=== PATIENT | female | born 1965 | race Caucasian/White ===

== ENCOUNTER 2020-05-15 11:45 | Outpatient (CLI) | payer BC, SELFPAY ==
--- NOTE | ~2020-05-15 | MR_ITS ---
EXAMINATION: MR knee LT wo con DATE: 05/15/2020 12:39 INDICATION: Left knee injury and pain. TECHNIQUE: Magnetic resonance imaging (MRI) of the left knee was performed without intravenous contra st. Sequences included axial PD-weighted FS FSE, coronal PD-weighted FSE and PD-weighted FS FSE, sagi ttal PD-weighted FSE, and sagittal T2-weighted FS FSE. COMPARISON: None. FINDINGS: Medial compartment: There is a vertical tear of posterior root of medial meniscus. There is shallow partial-thickness car tilage loss of tibial condyle and femoral condyle. Lateral compartment: Lateral meniscus is normal. Lateral compartment cartilage is normal. Patellofemoral compartment: There is deep partial thickness cartilage loss of patellar medial facet and median ridge and shallow partial-thickness cartilage loss of patellar lateral facet. There is moderate subchondral edema-like marrow signal intensity in the patella. Trochlear cartilage is normal. Ligaments and tendons: The anterior and posterior cruciate ligaments are normal. Medial collateral ligament is normal. There are changes of prior sprain of fibular collateral ligament characterized by thickening and increased signal intensity proximally. There is mild patellar tendinopathy. Fluid: There is a small knee joint effusion. There is a small Templeton's cyst. There is mild prepatellar and pedro perficial infrapatellar bursitis. IMPRESSION: 1. Moderate chondrosis of patellofemoral compartment and mild chondrosis of medial compartment. 2. Tear of medial meniscus. 3. Small knee joint effusion. 4. Small Templeton's cyst. Reviewed, dictated and finalized at location A. IMPRESSION: 1. Moderate chondrosis of patellofemoral compartment and mild chondrosis of med ial compartment. 2. Tear of medial meniscus. 3. Small knee joint effusion. 4. Small Templeton's cyst.
== END 2020-05-15 11:46 | disposition home or self-care (01) ==
LOC: ANHIMG 11:48
PROVIDERS: PCP Physician Assistant; Visit Provider Internal Medicine
DX: M25.462 Effusion, left knee (principal); M71.22 Synovial cyst of popliteal space [Baker], left knee; S83.242A Other tear of medial meniscus, current injury, left knee, initial encounter; X58.XXXA Exposure to other specified factors, initial encounter
CPT/HCPCS: 73721

== ENCOUNTER 2020-05-17 09:40 | Outpatient (CLI) | payer BC, SELFPAY ==
--- NOTE | ~2020-05-17 | US_ITS ---
EXAMINATION: US thyroid DATE: 05/17/2020 10:16 INDICATION: Nontoxic goiter. Abnormal levels of serum enzymes. TECHNIQUE: Multiple ultrasound images of the thyroid were obtained. COMPARISON: 08/29/2016 FINDINGS: Enlarged thyroid with heterogeneous echogenicity, coarse in echotexture, lobular contours and diffuse ly increased vascular flow on color Doppler. The right thyroid lobe measures 6.0 x 2.5 x 3.1 cm. The left thyroid lobe measures 5.5 x 2.6 x 2.6 cm. The thyroid isthmus measures 12 mm in thickness. No di screte nodules identified. IMPRESSION: 1. Enlarged thyroid with diffusely coarsened echotexture, lobular margins and increased flow on color Doppler which can be seen with trace disease or other nonspecific thyroiditis. Reviewed, dictated and finalized at location A. IMPRESSION: 1. Enlarged thyroid with diffusely coarsened echotexture, lobular margins and i ncreased flow on color Doppler which can be seen with trace disease or other no nspecific thyroiditis.
--- NOTE | ~2020-05-17 | US_ITS ---
US right upper quadrant INDICATION: Increased liver function tests PROCEDURE: Realtime right upper abdominal ultrasound. COMPARISON: Ultrasound dated 08/12/2011 FINDINGS: The pancreas is normal without focal mass or pancreatic ductal dilation. There is hepatome prema with fatty infiltration. There is a 1.4 cm liver cyst. There is normal directional flow in the portal vein. Gallbladder surgically absent. Common bile duct measures 3.6 mm. No sonographic Pike's sign. IMPRESSION: 1: Hepatomegaly with fatty infiltration of the liver. 2: Status post cholecystectomy. Reviewed, dictated and finalized at location B.
== END 2020-05-17 09:41 | disposition home or self-care (01) ==
LOC: ANHIMG 09:45
PROVIDERS: PCP Physician Assistant; Visit Provider Internal Medicine Endocrinology, Diabetes & Metabolism
DX: E04.9 Nontoxic goiter, unspecified (principal); R74.8 Abnormal levels of other serum enzymes; Z90.49 Acquired absence of other specified parts of digestive tract
CPT/HCPCS: 76536; 76705

== ENCOUNTER 2020-08-27 08:33 | Outpatient (CLI) | payer BC, SELFPAY ==
--- NOTE | ~2020-08-27 | MM_ITS ---
EXAMINATION: MM screening eugene BI w rachael HISTORY: Screening mammogram TECHNIQUE: Craniocaudal and mediolateral oblique 3-D tomosynthesis images were obtained and synthetic 2-D images were generated. CAD analysis was submitted and interpreted. COMPARISON: 06/25/2019, 04/23/2018, 04/16/2017 bilateral digital screening mammogram examinations BREAST PARENCHYMAL COMPOSITION: There are scattered areas of fibroglandular density. FINDINGS: A biopsy marker is noted on each side; history of bilateral benign breast biopsies. There is a new approximately 5 mm opacity at mid depth in the inner aspect of the lower outer quadran t of the right breast (craniocaudal Tomosynthesis image ; MLO Tomosynthesis image ). Diagno stic right mammogram and right breast ultrasound examination are recommended. Otherwise there is no evidence of suspicious mass, calcification, or architectural distortion to sugg est malignancy in either breast. There has been no suspicious interval change. IMPRESSION: 1. New 5 mm mass in inner aspect of lower outer right breast 2. Diagnostic right mammogram and right breast ultrasound examination are recommended. BI-RADS Category 0: Incomplete: Needs additional imaging evaluation. Reviewed, dictated and finalized at location A. IMPRESSION: 1. New 5 mm mass in inner aspect of lower outer right breast 2. Diagnostic right mammogram and right breast ultrasound examination are recom mended. BI-RADS Category 0: Incomplete: Needs additional imaging evaluation.
== END 2020-08-27 08:34 | disposition home or self-care (01) ==
PROVIDERS: PCP Physician Assistant; Visit Provider Nurse Practitioner
DX: Z12.31 Encounter for screening mammogram for malignant neoplasm of breast (principal); R92.8 Other abnormal and inconclusive findings on diagnostic imaging of breast
CPT/HCPCS: 77063; 77067

== ENCOUNTER 2020-09-18 00:57 | Outpatient (CLI) | payer BC, SELFPAY ==
[2020-09-18 21:18] LABS: SARS-CoV-2 RNA PCR Negative
== END 2020-09-18 00:58 | disposition home or self-care (01) ==
LOC: ANHCOVIDDT 00:57
PROVIDERS: PCP Physician Assistant; Visit Provider Internal Medicine Gastroenterology
DX: Z01.812 Encounter for preprocedural laboratory examination (principal); Z20.828 Contact with and (suspected) exposure to other viral communicable diseases
CPT/HCPCS: 87635; C9803; U0003

== ENCOUNTER 2020-09-21 00:12 | Day surgery (SDC) | payer BC, SELFPAY ==
[2020-09-15 12:43] VITALS: BMI 39.1
--- NOTE | 2020-09-20 11:53 | WPDANESEPPF ---
Anes - Initial Pre Proc Eval Procedure: Operation Date: 09/21/20 09:30 Proposed Procedures p Screening Colonoscopy - Dipesh Reyna MD Date/Time: 09/20/20 11:53 Surgeon: Dipesh Reyna MD Pre Op Diagnosis: Neoplasm Screening, Personal Hx Of Colon Polyps Patient Data Age: 55 Gender: F Height: 1.7 m Weight: 113.4 kg Allergies Allergy/AdvReac Type Severity Reaction Status Date / Time codeine Allergy Unknown Unknown Verified 09/21/20 08:35 Penicillins Allergy Unknown Unknown Verified 09/21/20 08:35 Sulfa (Sulfonamide Allergy Unknown Unknown Verified 09/21/20 08:35 Antibiotics) sulfanilamide Allergy Unknown Unknown Verified 09/21/20 08:35 Home Medications Medication Instructions Recorded Confirmed Type amlodipine 5 mg PO DAILY 09/15/20 09/15/20 History carbidopa-levodopa 25 - 100 tablet PO QAM 09/15/20 09/15/20 History carbidopa-levodopa 50 - 200 tablet PO QPM 09/15/20 09/15/20 History cetirizine [All Day Allergy 10 mg PO DAILY 09/15/20 09/15/20 History (cetirizine)] cholecalciferol (vitamin D3) 200 mcg PO DAILY 09/15/20 09/15/20 History [Qwc-N-Hkgbdez Forte] hydrochlorothiazide 25 mg PO DAILY 09/15/20 09/15/20 History levothyroxine [Tirosint] 137 mcg PO DAILY 09/15/20 09/15/20 History rasagiline 1 mg PO DAILY 09/15/20 09/15/20 History rosuvastatin 20 mg PO DAILY 09/15/20 09/15/20 History sertraline 100 mg PO DAILY 09/15/20 09/15/20 History Patient hx anesthesia problems: none Family hx anesthesia problems: none PMFSH Past Medical History Medical History (Updated 09/21/20 @ 08:48 by Dipesh Reyna MD) Anxiety Depression Hypertension Hypothyroidism Migraine JHONY (obstructive sleep apnea) CPAP Parkinson disease Family History Family History (Updated 08/24/16 @ 10:11 by DOCTOR UNKNOWN) Grandparent Family history of lung cancer Family history of lymphoma Mother Patient's mother is in good health Other Depression Family history of alcoholism Family history of cardiovascular disease Family history of chronic obstructive pulmonary disease Family history of osteoporosis Family history of rheumatoid arthritis Family history of sleep apnea Hypertension Social History Social History Smoking status: Never smoker Second hand tobacco smoke exposure: No Alcohol intake: former Substance use: unknown Substance use type: unknown Living arrangements: with family Spiritual care concerns: No Anes - Eval Final PreProcedure Day of Procedure 09/20/20 11:53 Patient weight: obese Heart: regular rate and rhythm Lungs: clear to auscultation and normal air movement Airway: Mallampati scale class II Neurological: alert and oriented Last oral intake: >/= 8 hours ASA classification: III Emergent: no Anesthetic plan: proceed Anesthesia type and monitoring: general GIVS and standard monitoring Informed Consent: The patient's anesthetic plan and its attendant risks and benefits were discussed with the patient/family/POA. Questions were solicited and answers provided to the satisfaction of the patient/family/POA.
[2020-09-21 08:38] VITALS: BP 149/93; PULSE 66; RESP 20; TEMP 36.8; O2SAT 97
--- NOTE | 2020-09-21 08:46 | WPDGICN ---
Assessment and Plan Assessment and plan (1) Family history of colonic polyps: Code(s): Z83.71 - Family history of colonic polyps Status: Acute Assessment and Plan: Patient has a family history of colon polyps in her father. As well as having had colon polyps on previous colonoscopy herself. Plan is for surveillance colonoscopy now. Typically this is recommended at 5 year intervals in the future. (2) History of colon polyps: Code(s): Z86.010 - Personal history of colonic polyps Status: Acute GI Consult Note Consult date/time: 09/21/20 08:46 HPI: Jaimie Mosley is a 55 year old female Seen in evaluation at the request of Dr Simin Gunter. patient presents for surveillance colonoscopy. Patient has a history of colon polyps in the past. Family history is significant that her father has had colon polyps. Patient states that her own bowel habits are normal. She denies abdominal pain. She has had no bleeding. Last colonoscopy was approximately 6 years ago. Review of Systems Review of Systems: All systems reviewed & are unremarkable except as noted in HPI and below PMFSH Past Medical History Medical History (Updated 09/21/20 @ 08:48 by Dipesh Reyna MD) Anxiety Depression Hypertension Hypothyroidism Migraine JHONY (obstructive sleep apnea) CPAP Parkinson disease Family History Family History (Updated 08/24/16 @ 10:11 by DOCTOR UNKNOWN) Grandparent Family history of lung cancer Family history of lymphoma Mother Patient's mother is in good health Other Depression Family history of alcoholism Family history of cardiovascular disease Family history of chronic obstructive pulmonary disease Family history of osteoporosis Family history of rheumatoid arthritis Family history of sleep apnea Hypertension Social History Social History Smoking status: Never smoker Second hand tobacco smoke exposure: No Alcohol intake: former Substance use: unknown Substance use type: unknown Living arrangements: with family Spiritual care concerns: No Meds Home Medications and Allergies Home Medications Medication Instructions Recorded Confirmed Type amlodipine 5 mg PO DAILY 09/15/20 09/15/20 History carbidopa-levodopa 25 - 100 tablet PO QAM 09/15/20 09/15/20 History carbidopa-levodopa 50 - 200 tablet PO QPM 09/15/20 09/15/20 History cetirizine [All Day Allergy 10 mg PO DAILY 09/15/20 09/15/20 History (cetirizine)] cholecalciferol (vitamin D3) 200 mcg PO DAILY 09/15/20 09/15/20 History [Yux-G-Kiabrem Forte] hydrochlorothiazide 25 mg PO DAILY 09/15/20 09/15/20 History levothyroxine [Tirosint] 137 mcg PO DAILY 09/15/20 09/15/20 History rasagiline 1 mg PO DAILY 09/15/20 09/15/20 History rosuvastatin 20 mg PO DAILY 09/15/20 09/15/20 History sertraline 100 mg PO DAILY 09/15/20 09/15/20 History Allergies Allergy/AdvReac Type Severity Reaction Status Date / Time codeine Allergy Unknown Unknown Verified 09/21/20 08:35 Penicillins Allergy Unknown Unknown Verified 09/21/20 08:35 Sulfa (Sulfonamide Allergy Unknown Unknown Verified 09/21/20 08:35 Antibiotics) sulfanilamide Allergy Unknown Unknown Verified 09/21/20 08:35 Vital Signs Vital Signs - 24 hr 09/21/20 08:38 Temperature 98.3 F Pulse Rate 66 Respiratory Rate 20 Blood Pressure 149/93 H Pulse Oximetry 97 Exam Narrative: Exam Narrative: Physical exam reveals patient to be a alert. vital signs stable. HEENT exam unremarkable. Lungs are clear to auscultation and percussion. Heart is without murmur or extra sounds. Abdominal exam bowel sounds are present soft nontender with no organomegaly. Digital external rectal exam is normal.
[2020-09-21] MEDS: LACTATED RINGERS 1,000 ML 150 ML IV CONT (08:52)
[2020-09-21 09:52] VITALS: BP 129/67; PULSE 59; RESP 17; O2SAT 97
[2020-09-21 10:02] VITALS: BP 130/68; PULSE 59; RESP 20; O2SAT 100
[2020-09-21 10:12] VITALS: BP 147/77; PULSE 61; RESP 20; O2SAT 98
== END 2020-09-21 10:32 | disposition home or self-care (01) ==
PROVIDERS: PCP Physician Assistant; Visit Provider Internal Medicine Gastroenterology
PROC: 0DJD8ZZ Inspection of Lower Intestinal Tract, Via Natural or Artificial Opening Endoscopic (ICD-10-PCS; CPT 45378; principal; 2020-09-21 09:30)
DX: Z12.11 Encounter for screening for malignant neoplasm of colon (principal); D12.2 Benign neoplasm of ascending colon; D12.5 Benign neoplasm of sigmoid colon; K63.5 Polyp of colon; K64.8 Other hemorrhoids; Z83.71 Family history of colonic polyps; I10 Essential (primary) hypertension; E03.9 Hypothyroidism, unspecified; G47.33 Obstructive sleep apnea (adult) (pediatric); G20 Parkinson's disease; F41.8 Other specified anxiety disorders
CPT/HCPCS: 45385; 88305; J2704; J7120

== ENCOUNTER 2020-09-23 11:18 | Outpatient (CLI) | payer BC, SELFPAY ==
--- NOTE | ~2020-09-23 | MMUS_ITS ---
EXAMINATION: MM diagnostic mammo unilat RT, US breast RT limited HISTORY: Right breast mass on screening mammogram and patient now reports palpable lump of the upper outer breast. TECHNIQUE: Additional 3-D tomosynthesis images of the right breast were performed and synthetic 2-D i mages were generated. CAD analysis was submitted and interpreted. High resolution limited right breas t ultrasound was performed. COMPARISON: 08/27/2020 06/25/2019, 04/23/2018 FINDINGS: MAMMOGRAPHIC FINDINGS: There is a 5 mm oval, obscured, equal density mass in the middle third of the lower breast at the 6:0 0 location 6 cm from the nipple. No mammographic correlate is identified for the reported palpable ab normality of concern in the upper-outer quadrant breast. ULTRASOUND: There is an 18 mm x 9 mm oval, circumscribed, parallel, isoechoic mass in the upper outer quadrant of the breast corresponding to the palpable abnormality of concern which has sonographic features consi stent with a lipoma. There is a 3 mm oval, circumscribed, hypoechoic mass at the 6:00 location 6 cm f rom the nipple without suspicious posterior features or internal vascularity. There is a 12 mm x 7 mm oval, circumscribed, hyperechoic mass with no posterior features or internal vascularity at the 6:00 location 3 cm from the nipple. IMPRESSION: 1. Probably benign breast mass at the 6:00 location 3 cm from the nipple, findings suggestive of a sm all breast hematoma at the 6:00 location 3 cm from the nipple, and a lipoma at the area of palpable c oncern. 2. Recommend 6 month follow-up right diagnostic mammogram and ultrasound. BI-RADS category 3, probably benign findings. Reviewed, dictated and finalized at location A. T OF APPEALS JUDGE IMPRESSION: 1. Probably benign breast mass at the 6:00 location 3 cm from the nipple, findi ngs suggestive of a small breast hematoma at the 6:00 location 3 cm from the ni pple, and a lipoma at the area of palpable concern. 2. Recommend 6 month follow-up right diagnostic mammogram and ultrasound. BI-RADS category 3, probably benign findings.
== END 2020-09-23 11:19 | disposition home or self-care (01) ==
LOC: ANHIMG 11:19
PROVIDERS: PCP Physician Assistant; Visit Provider Obstetrics & Gynecology Gynecology
DX: R92.8 Other abnormal and inconclusive findings on diagnostic imaging of breast (principal)
CPT/HCPCS: 76642; 77065

== ENCOUNTER 2020-09-27 12:53 | Outpatient (CLI) | payer BC, SELFPAY ==
--- NOTE | ~2020-09-27 | DEXA_ITS ---
Bone Density Report Name: Jaimie Mosley Age: 55 Sex: Female Ethnicity: White Date of : 1965 Indication: postmenopausal; height loss; Referring Provider: Rich, Radha Study: Bone densitometry was performed. Exam Date: September 27, 2020 Accession number: [id number] Bone Density: Region BMD T-score Z-score Classification AP Spine (L1-L4) 0.981 -0.6 0.6 Normal Femoral Neck (Left) 0.749 -0.9 0.3 Normal Total Hip (Left) 1.107 1.3 2.2 Normal Total Hip Bilateral Avg 1.077 1.1 2.0 Normal Femoral Neck (Right) 0.769 -0.7 0.5 Normal Total Hip (Right) 1.045 0.8 1.7 Normal World Health Organization criteria for BMD impression classify patients as: Normal (T-score at or above -1.0), Osteopenia (T-score between -1.0 and -2.5), or Osteoporosis (T-score at or below -2.5). 10-year Fracture Risk: FRAX not reported because: All T-scores for Spine Total, Hip Total, Femoral Neck at or above -1.0 Previous Exams: Region Exam Age BMD T-score BMD Change BMD Change Date g/cm2 vs Baseline vs Previous Total Hip(Left) 09/27/2020 55 1.107 1.3 0.002(0.1%) 0.002(0.1%) 08/29/2016 51 1.105 1.3 Total Hip(Right) 09/27/2020 55 1.045 0.8 0.031(3.0%)* 0.031(3.0%)* 08/29/2016 51 1.014 0.6 *Denotes significance at 95% confidence level, LSC for Total Hip = 0.027 g/cm2 Clinical Information Provided by Patient: Has used the following medications: Vitamin D, Calcium Patient maximum height was 68 Menopause Age: 50 Drinks caffeinated beverages Onset of menses at age 11 Number of children 2 Impression: The patient has normal bone mass. No significant bone loss was observed. Discussion: BONE DENSITY IS ABOVE THE MINIMUM DESIRABLE LEVEL AT ALL SKELETAL SITES TESTED. This patient?s bone mineral density is above the minimum desirable level (T-score -1.0 or better) at all sites measured. The patient should follow a healthful lifestyle (good nutrition with adequate calcium and vitamin D, and appropriate weight-bearing exercise). Follow-Up: Consider repeating this study in 5 years or sooner if there is some new clinical indication. Reported by: MARIIA on 09/27/2020 1:14:00 PM. Reviewed, dictated and finalized at [facility]iel [place]
== END 2020-09-27 12:54 | disposition home or self-care (01) ==
LOC: ANHIMG 12:55
PROVIDERS: PCP Physician Assistant; Visit Provider Physician Assistant
DX: Z78.0 Asymptomatic menopausal state (principal)
CPT/HCPCS: 77080

== ENCOUNTER 2020-12-03 16:38 | Outpatient (CLI) | payer BC, SELFPAY ==
--- NOTE | ~2020-12-03 | MR_ITS ---
EXAMINATION: MR knee LT wo con DATE: 12/03/2020 17:28 INDICATION: Acute onset left knee pain TECHNIQUE: Magnetic resonance imaging (MRI) of the left knee was performed without intravenous contra st. Sequences included coronal PD-weighted FSE, coronal PD-weighted FS FSE, sagittal T2-weighted FSE , sagittal PD-weighted FS FSE and axial PD weighted fat saturated FSE. COMPARISON: 05/15/2020 FINDINGS: Medial compartment: There is a tiny focus of susceptibility artifact along the anterior horn of the lateral side of the p osterior horn of the medial meniscus at the end of a linear tract extending from anterior to posterio r across the medial tibial plateau tensely and anchor sites for meniscal repair. There is medial extr usion of the meniscal body with a longitudinal horizontal tear extending to near the free edge of the body. Interval development of partial thickness chondral ulceration with prominent underlying subart icular edema at the anterior weightbearing medial femoral condyle. Unchanged mild partial thickness c artilage loss with smooth chondral surface and without degenerative subchondral changes along the ant erior aspect of the medial tibial plateau. Lateral compartment: Lateral meniscus is normal. Articular cartilage is normal. Patellofemoral compartment: Interval progression of partial-thickness cartilage loss along the lateral patellar facet. Again seen are focal regions of more severe full/near full-thickness chondral ulceration and fissuring with und erlying cortical irregularity and subcortical edema at the superolateral aspect. Lateral patellar fac et and at the cephalad aspect of the patellar apical ridge. Trochlear cartilage remains relatively pr eserved. Ligaments and tendons: Anterior and posterior cruciate ligaments are normal. Medial collateral ligament is normal. Again see n is mild thickening of the proximal medial collateral ligament without surrounding edema consistent with scarring related to chronic sprain. The extensor mechanism is normal. The visualized medial and lateral hamstring tendons as well as the iliotibial band are normal. Fluid/other: Physiologic amount of fluid in the joint space. No loose osteochondral bodies identified. Very small Templeton's cyst. Osseous/other: Bone alignment is normal. No fracture or pathologic marrow replacing process. There is some scarring at the medial and lateral aspects of Hoffa's fat pad consistent with interval arthroscopy. IMPRESSION: 1. Postoperative change of interval arthroscopy and likely medial meniscal repair with suture anchor near the posterior root of the medial meniscus. Residual medial extrusion and longitudinal horizontal tear at the body of the medial meniscus. 2. 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 Reviewed, dictated and finalized at location A. ECT CONSTRUCTION MANAGER IMPRESSION: 1. Postoperative change of interval arthroscopy and likely medial meniscal repa ir with suture anchor near the posterior root of the medial meniscus. Residual medial extrusion and longitudinal horizontal tear at the body of the medial men iscus. 2. 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
== END 2020-12-03 16:39 | disposition home or self-care (01) ==
PROVIDERS: Family Provider Family Medicine; PCP Physician Assistant
DX: M25.562 Pain in left knee (principal); S83.242A Other tear of medial meniscus, current injury, left knee, initial encounter; M94.262 Chondromalacia, left knee; M17.12 Unilateral primary osteoarthritis, left knee; Z98.890 Other specified postprocedural states
CPT/HCPCS: 73721

== ENCOUNTER 2021-03-21 11:24 | Outpatient (CLI) | payer BC, SELFPAY ==
--- NOTE | ~2021-03-21 | MMUS_ITS ---
EXAMINATION: MM diagnostic eugene RT w rachael, US breast RT limited HISTORY: Palpable right breast abnormality TECHNIQUE: Additional 3-D tomosynthesis images of the right breast were performed and synthetic 2-D i mages were generated. CAD analysis was submitted and interpreted. High resolution Limited right breas t ultrasound was performed. COMPARISON: Comparison to multiple prior studies sequentially, with oldest reviewed study dated 08/06. BREAST PARENCHYMAL COMPOSITION: Breast composed of scattered areas of fibroglandular density. FINDINGS: MAMMOGRAPHIC FINDINGS: No suspicious masses, calcifications or architectural distortion in the right breast to suggest malig viri. ULTRASOUND: Limited right breast ultrasound: At 8:00, 8 cm from the nipple, there is a 5 mm cyst. No suspicious m asses to suggest malignancy. IMPRESSION: 1. No evidence for malignancy in the right breast. 2. Routine yearly screening mammogram and regular clinical breast examination are recommended. BI-RADS Category 2: Benign finding(s). Reviewed, dictated and finalized at location A. IMPRESSION: 1. No evidence for malignancy in the right breast. 2. Routine yearly screening mammogram and regular clinical breast examination a re recommended. BI-RADS Category 2: Benign finding(s).
== END 2021-03-21 11:25 | disposition home or self-care (01) ==
PROVIDERS: PCP Physician Assistant; Visit Provider Obstetrics & Gynecology Gynecology
DX: R92.8 Other abnormal and inconclusive findings on diagnostic imaging of breast (principal)
CPT/HCPCS: 76642; 77061; 77065; G0279

== ENCOUNTER 2021-03-23 07:56 | Outpatient (CLI) | payer BC, SELFPAY ==
--- NOTE | ~2021-03-23 | US_ITS ---
EXAMINATION: US abdomen limited EXAM DATE: 03/23/2021 08:29 INDICATION: Liver cyst. TECHNIQUE: Multiple grayscale and Doppler images of the abdomen right upper quadrant were obtained (binu y a technologist who performed the scan) and subsequently reviewed. Comparison is made to prior exami nation from 05/17/2020. FINDINGS: The pancreatic head and body are normal in appearance. The pancreatic tail is not visualized. There is echogenic liver parenchyma with poor penetration, hepatic steatosis. There is a 1.6 cm liver cys t. There is no evidence of intrahepatic biliary duct dilation. Portal venous flow was seen in the h epatopedal, normal direction and has normal Doppler waveform. No right-sided hydronephrosis. Common bile duct measures 5 mm, which is normal. The gallbladder fossa is unremarkable. There is n o significant interval change. IMPRESSION: 1. Hepatic steatosis. 2. Liver cyst. Reviewed, dictated and finalized at location A.
--- NOTE | ~2021-03-23 | XR_ITS ---
EXAMINATION: XR barium swallow modified EXAM DATE: 03/23/2021 09:42 INDICATION: Dysphagia. Parkinson's. TECHNIQUE: Modified barium esophagram was performed by speech pathologist with radiologist Dr. Jaron Bryan present to administered fluoroscopy. Speech pathologist administered barium in varying consis tencies as per speech pathologist documentation. This was recorded on tape. There was total fluorosc opic time of 1.1 minutes. The DAP for this procedure was 0.9 Gycm2. A total of 4 images sent to PAC S from the exam. FINDINGS: Oral stage: Adequate function. Pharyngeal phase: Reduced laryngeal elevation. Laryngeal penetration: Trace, thin liquids. Aspiration: Trace. Laryngeal sensitivity: Present. IMPRESSION: Oral feedings recommended as per speech pathologist. Please refer to speech pathologist findings and specific feeding recommendations. Reviewed, dictated and finalized at location A.
--- NOTE | 2021-03-24 11:44 | STOPEVAL ---
MODIFIED BARIUM SWALLOW EVALUATION (03-23-21) Thank you for referring Jaimie Carmen Mosley to [facility].? Outpatient Past Medical History Past Medical History Source of Past Medical History Patient Neurological History Hx Migraine Yes Hx Parkinson's Disease Yes: since 2016 Cardiovascular History Hx Hypertension Yes Respiratory History Hx Sleep Apnea Yes: CPAP Gastrointestinal History Hx Gall Bladder Disease Yes Hx Polyps Yes Genitourinary History Hx Genitourinary Disorders No Significant History Musculoskeletal History Hx Orthopedic Surgery Yes: LEFT KNEE MENISCUS -2019 Hematological History Hx Hematological Disorders No Significant History Endocrine History Hx Hypothyroidism Yes: JINNY Hx Other Endocrine Disorders Yes: GOITER HEENT History Hx Tonsillectomy Yes Hx Other HEENT Disorders Yes: SINUS SURGERY Integumentary History Hx Skin Disorders No Significant History Reproductive History Hx Post Menopausal Yes Psychosocial History Hx Anxiety Yes Hx Depression Yes Pain History Has Past Pain Affected Your Daily Life Yes: DUE TO LEFT KNEE -FIXED Anesthesia History Hx Anesthesia Reactions No Significant History Pain Assessment Timing of Pain Assessment Timing of Pain Assessment Assessment Self Report Self Report Pain Level 0 Pain Score Pain Score 0: Self Report Modified Barium Swallow Evaluation Recent Swallowing History Reports Dysphagia Yes: choking on water; Onset of Dysphagia as long as I can remember but worse recently History of Related Medical Diagnosis Parkinson's Disease Other Factors Impacting Dysphagia Neurological Impairment History of Pneumonia No Reported Difficult Consistencies Thin Liquids Intake Method Prior to Swallow Oral Evaluation Diet Prior to Swallow Evaluation Regular, Level 7 Liquid Consistency Prior to Swallow Thin (0) Evaluation Consistency Thin Uncontrolled 2 Other Amount straw with tight chin tuck Oral Preparatory Symptoms Within Functional Limits Oral Phase Symptoms Within Functional Limits Pharyngeal Phase Symptoms Within Functional Limits, Laryngeal Penetration Severity of Vallecular Residue None - 0% No Residue Severity of Pyriform Sinus Residue None - 0% No Residue 8 Point Laryngeal Penetration-Aspiration Material Enters the Airway, Scale Remains Above Vocal Folds, is Ejected Cervical/Esophageal Symptoms Within Functional Limits Thin Uncontrolled 1 Other Amount cup with chin tuck Oral Preparatory Symptoms
== END 2021-03-23 07:57 | disposition home or self-care (01) ==
LOC: ANHIMG 07:57
PROVIDERS: PCP Physician Assistant; Visit Provider Internal Medicine Endocrinology, Diabetes & Metabolism
DX: K76.89 Other specified diseases of liver (principal); K76.0 Fatty (change of) liver, not elsewhere classified
CPT/HCPCS: 76705; 92611

== ENCOUNTER 2021-04-06 09:16 | Outpatient (RCR) | payer BC, SELFPAY ==
--- NOTE | 2021-04-06 10:32 | STOPEVAL ---
SPEECH THERAPY INITIAL EVALUATION: Thank you for referring Jaimie Mosley to [facility].? The patient is scheduled to be seen for therapy? 1x/week for 4 weeks. Please review, sign, date and return this plan of care FRANCISCO. I agree with and certify that the following plan of care is medically necessary. Referring Physician Date Attending Provider: Shahla SmithMD Other Providers: Debra Villanueva & [facility]RAXTON[facility] Neurology attn: aBltazar Mendoza MD Outpatient Past Medical History Past Medical History Source of Past Medical History Patient Neurological History Hx Migraine Yes: up until menopause Hx Parkinson's Disease Yes: since 2016 Cardiovascular History Hx Hypertension Yes: on meds Respiratory History Hx Sleep Apnea Yes: CPAP Gastrointestinal History Hx Cholecystectomy Yes Hx Gall Bladder Disease Yes Hx Polyps Yes Genitourinary History Hx Genitourinary Disorders No Significant History Musculoskeletal History Hx Orthopedic Surgery Yes: LEFT KNEE MENISCUS -2019 surgery x2 Hematological History Hx Hematological Disorders No Significant History Endocrine History Hx Hypothyroidism Yes: JINNY HEENT History Hx Tonsillectomy Yes Hx Other HEENT Disorders Yes: SINUS SURGERY Integumentary History Hx Skin Disorders No Significant History Reproductive History Hx Post Menopausal Yes Psychosocial History Hx Anxiety Yes Hx Depression Yes Pain History Has Past Pain Affected Your Daily Life Yes: DUE TO LEFT KNEE -FIXED Anesthesia History Hx Anesthesia Reactions No Significant History Prior Level of Function Prior Swallow Level Prior Intake Method Oral Prior Diet Regular (Level 7 Diet) Prior Liquid Consistency Thin (Level 0 Diet) Prior Cognition/Communication Prior Communication Level No Impairment Prior Cognitive Function Able to Function Independently Comments Additional Prior Level of Function jaw tremor was the first Comments symptom of Parkinson disease. Bedside Swallow Evaluation General Reports Dysphagia Yes Duration of Dysphagia as long as I can remember History of Related Medical Diagnosis Parkinson's Disease History of Feeding Problems Previous Swallow Evaluation Reported Difficult Consistencies Thin Liquids Meal Observed Bedside Swallows History of Dysphagia No History of Pneumonia No Intake Method Prior to Swallow Oral Evaluation Diet Prior to Swallow Evaluation Regular, Level 7 Liquid Consistency Prior to Swallow Thin (0) Evaluation Cognition During Swallowing Alert,Attentive Consistency
--- NOTE | 2021-05-04 14:53 | PCSTNOTE ---
SPEECH THERAPY DISCHARGE: Attending Provider: Shahla Smith, Patient:Jamiie Mosley Date of :1965 The above pt was seen in outpatient speech therapy following a recent modified barium swallow (MBS) which revealed: oral stages: within functional limits; during the pharyngeal stage, the following was exhibited: reduced laryngeal elevation as evidenced by laryngeal penetration during the swallow; reduced laryngeal closure as evidenced by aspiration during the swallow (with thin liquids only). The aspiration was considered mild and with the use of the chin tuck/neck flexion posture, was able to be eliminated. After the MBS, the pt was educated re the results of the evaluation as well as the recommendations (for OP speech therapy) and swallowing guidelines. Upon outpatient ST evaluation on 04/06/21, the results and recommendations of the previous modified barium swallow were reviewed. She was tested with thin liquids and mixed consistency using the chin tuck posture. Intermittent throat clearing was exhibited;however, with instruction to tuck chin slightly tighter, no further throat clearing occurred. The pt was instructed on risks of aspiration, HEP and swallowing guidelines. Pt was provided with written list of dysphagia exercises. Pt verbalized and demonstrated understanding. She was instructed to return x1/week x 4 weeks to provide any further teaching and direction for the HEP. At this time, the patient has not returned for any further treatments; therefore she will be discharged at this time. Thank you for referring this patient to [facility]. Please review, sign, date and return this discharge summary FRANCISCO. I have been updated about the patient's current status and I agree with discharge from the above service at this time. Referring Physician Date
== END 2021-05-05 17:08 | disposition home or self-care (01) ==
LOC: ANHST 09:16
PROVIDERS: PCP Physician Assistant; Visit Provider Internal Medicine Endocrinology, Diabetes & Metabolism
DX: R13.10 Dysphagia, unspecified (principal)
CPT/HCPCS: 92610

== ENCOUNTER 2021-12-14 11:06 | Outpatient (CLI) | payer BC, SELFPAY ==
--- NOTE | 2021-12-14 | ECG_ITS ---
Measurements Intervals [place] Rate: 64 P: 39 CO: 165 QRS: -1 QRSD: 94 T: 11 QT: 409 QTc: 425 Interpretive Statements SINUS RHYTHM LOW QRS VOLTAGE IN PRECORDIAL LEADS CONSIDER INFERIOR INFARCT, AGE INDETERMINATE BASELINE ARTIFACT- II, III, AVF ABNORMAL ECG Electronically Signed On 12-14-2021 11:47:01 FILLING STATION LABORER by Henry Echavarria D.O.
== END 2021-12-14 11:07 | disposition home or self-care (01) ==
LOC: ANHCARD 11:11
PROVIDERS: PCP Physician Assistant; Referring Provider Specialist; Visit Provider Physician Assistant
DX: Z01.818 Encounter for other preprocedural examination (principal); R94.31 Abnormal electrocardiogram [ECG] [EKG]
CPT/HCPCS: 93005

== ENCOUNTER → 2021-12-28 02:13 | Outpatient (CLI) | payer BC, SELFPAY ==
[2021-12-28 12:38] LABS: SARS-CoV-2 RNA PCR Negative
== END ==
PROVIDERS: PCP Physician Assistant; Visit Provider Physician Assistant
DX: Z01.812 Encounter for preprocedural laboratory examination (principal); Z20.822 Contact with and (suspected) exposure to COVID-19
CPT/HCPCS: C9803; U0003; U0005

== ENCOUNTER 2022-03-31 07:31 | Outpatient (CLI) | payer BC, SELFPAY ==
--- NOTE | ~2022-03-31 | US_ITS ---
EXAMINATION: US abdomen limited DATE: 03/31/2022 08:47 INDICATION: Liver cyst. Other specified diseases of liver. TECHNIQUE: Multiple grayscale and Doppler ultrasound images of the abdomen were obtained. COMPARISON: Ultrasound 03/23/2021 FINDINGS: The visualized portions of the head, body, and tail of the pancreas are normal. There is di ffuse hepatic steatosis. There is a 1.5 cm cyst in the liver, likely not clinically significant. No l iver surface nodularity. The gallbladder is absent. The common duct is normal and measures 6 mm. Ther e is normal flow in main portal vein. IMPRESSION: 1. Diffuse hepatic steatosis. Reviewed, dictated and finalized at location A.
== END 2022-03-31 07:32 | disposition home or self-care (01) ==
LOC: ANHIMG 07:35
PROVIDERS: PCP Physician Assistant; Visit Provider Internal Medicine Endocrinology, Diabetes & Metabolism
DX: K76.89 Other specified diseases of liver (principal); K76.0 Fatty (change of) liver, not elsewhere classified
CPT/HCPCS: 76705

== ENCOUNTER 2022-05-29 14:26 | Outpatient (CLI) | payer BC, SELFPAY | END 2022-05-29 14:27 | disposition home or self-care (01) | PROVIDERS: PCP Physician Assistant; Visit Provider Physician Assistant | DX: H90.3 Sensorineural hearing loss, bilateral (principal) | CPT/HCPCS: 92557; 92567 ==

== ENCOUNTER 2022-06-21 13:00 | Outpatient (RCR) | payer BC, SELFPAY | END 2022-09-05 23:59 | disposition home or self-care (01) | LOC: ANHAUDASC 13:00 | PROVIDERS: PCP Physician Assistant; Visit Provider Physician Assistant | DX: Z46.1 Encounter for fitting and adjustment of hearing aid (principal) | CPT/HCPCS: 99199; V5261 ==

== ENCOUNTER 2022-07-20 11:28 | Outpatient (CLI) | payer BC, SELFPAY ==
--- NOTE | ~2022-07-20 | XR_ITS ---
EXAMINATION: XR chest 2V DATE: 07/20/2022 11:47 INDICATION: Cough. TECHNIQUE: Frontal and lateral views of the chest were obtained. COMPARISON: Chest 2 views 07/30/2013 FINDINGS: The chest demonstrates clear lungs without pneumonia, pleural effusion, or pneumothorax. Th e heart size is normal. IMPRESSION: 1. No acute cardiopulmonary disease. Reviewed, dictated and finalized at location A.
== END 2022-07-20 11:29 | disposition home or self-care (01) ==
PROVIDERS: PCP Physician Assistant; Visit Provider Physician Assistant
DX: R05.9 Cough, unspecified (principal)
CPT/HCPCS: 71046

== ENCOUNTER 2022-08-04 12:29 | Outpatient (CLI) | payer BC, SELFPAY ==
--- NOTE | 2022-08-04 | ECHO_ITS ---
Patient Info Name: Jaimie Mosley Age: 57 years : 1965 Gender: Female Ht: 67 in Wt: 260 lbs BSA: 2.42 m2 HR: 63 bpm BP: 245 / 80 mmHg Technical Quality: Fair Exam Date: 08/04/2022 1:07 PM Exam Location: [facility] Patient Status: Outpatient Admit Date: 08/04/2022 Staff Ordering Physician: RichDebra PA-C Or First Assist Registered Nurse: Casandra Santos RDCS Attending Provider: MeganDebra PA-C Exam Type: CA echo doppler color flow Study Info Indications R01.1 - Cardiac murmur, unspecified Complete two-dimensional, color flow and Doppler transthoracic echocardiogram is performed. Summary 1. Complete two-dimensional, color flow and Doppler transthoracic echocardiogram is performed. 2. Left ventricular chamber dimension is normal. 3. Left ventricular systolic function is normal, estimated at 65-70%. 4. There is mildly increased left ventricular wall thickness. 5. The left ventricular diastolic function is grade I diastolic dysfunction. 6. E/e' 9 is minimally elevated. 7. Global longitudinal strain is abnormal at -15.1%. 8. Mild pulmonary hypertension, estimated pulmonary arterial systolic pressure is 40 mmHg. 9. Dilated inferior vena cava with >50% collapse upon inspiration consistent with elevated right atrial pressure, 10 mmHg. Left Ventricle E/e' 9 is minimally elevated. Global longitudinal strain is abnormal at -15.1%. Left ventricular chamber dimension is normal. Left ventricular systolic function is normal, estimated at 65-70%. There is mildly increased left ventricular wall thickness. The left ventricular diastolic function is grade I diastolic dysfunction. Right Ventricle Right ventricular systolic function is normal and with normal TAPSE 2.4 cm. Right ventricular chamber dimension is normal. Left Atria Left atrial chamber dimension is normal. Right Atria Right atrial chamber dimension is normal. Aortic Valve The aortic valve is trileaflet. There is no aortic valve stenosis. There is no aortic valve regurgitation. Pulmonic Valve There is no pulmonic regurgitation. Mitral Valve There is no mitral valve stenosis. There is no mitral valve regurgitation. Tricuspid Valve There is no tricuspid valve regurgitation. Mild pulmonary hypertension, estimated pulmonary arterial systolic pressure is 40 mmHg. Pericardium/Pleural There is no pericardial effusion. Inferior Vena Cava Dilated inferior vena cava with >50% collapse upon inspiration consistent with elevated right atrial pressure, 10 mmHg. Aorta The aortic root size at the sinus of Valsalva is normal. Left Ventricular Outflow Tract Name Value Normal LVOT 2D LVOT Diameter 2.0 cm LVOT Doppler LVOT Peak Gradient 8 mmHg LVOT Mean Gradient 4 mmHg LVOT VTI 31 cm LVOT VTI/AV VTI Ratio 0.9 LVOT Stroke Volume 97 ml LVOT CO 6.0 l/min LVOT CI 2.5 l/min/m2 Pulmonic Valve
== END 2022-08-04 12:30 | disposition home or self-care (01) ==
LOC: ANHCARD 12:30
PROVIDERS: PCP Physician Assistant; Visit Provider Physician Assistant
DX: R01.1 Cardiac murmur, unspecified (principal); I08.3 Combined rheumatic disorders of mitral, aortic and tricuspid valves
CPT/HCPCS: 93306

== ENCOUNTER 2022-08-17 16:00 | Outpatient (CLI) | payer BC, SELFPAY ==
--- NOTE | ~2022-08-17 | MM_ITS ---
EXAMINATION: MM screening [facility] w rachael HISTORY: Screening TECHNIQUE: Craniocaudal and mediolateral oblique 3-D tomosynthesis images were obtained and synthetic 2-D images were generated. CAD analysis was submitted and interpreted. COMPARISON: Comparison to multiple prior studies sequentially, with oldest reviewed study dated 04/16. BREAST PARENCHYMAL COMPOSITION: Breast composed of scattered areas of fibroglandular density FINDINGS: There is no evidence of suspicious mass, calcification, or architectural distortion to sugg est malignancy in either breast. There has been no suspicious interval change. IMPRESSION: 1. No mammographic evidence of malignancy. 2. Recommend routine screening mammography in one year. BI-RADS Category 1: Negative Reviewed, dictated and finalized at location A.
== END 2022-08-17 16:01 | disposition home or self-care (01) ==
LOC: ANHIMG 16:02
PROVIDERS: PCP Physician Assistant; Visit Provider Nurse Practitioner
DX: Z12.31 Encounter for screening mammogram for malignant neoplasm of breast (principal)
CPT/HCPCS: 77063; 77067

== ENCOUNTER 2023-11-06 09:50 | Outpatient (CLI) | payer BC, SELFPAY ==
--- NOTE | ~2023-11-06 | MM_ITS ---
EXAMINATION: MM screening [facility] BI w rachael HISTORY: Screening mammogram TECHNIQUE: Craniocaudal and mediolateral oblique 3-D tomosynthesis images were obtained and synthetic 2-D images were generated. CAD analysis was submitted and interpreted. COMPARISON: 08/17/2022, 03/21/2021, 09/23/2020, 08/27/2020 BREAST PARENCHYMAL COMPOSITION: There are scattered areas of fibroglandular density. FINDINGS: No suspicious mass, calcification, or architectural distortion are identified in either [place] ast to suggest malignancy. There has been no suspicious interval change. IMPRESSION: 1. No mammographic evidence of malignancy. 2. Recommend routine screening mammography in one year. BI-RADS Category 1: Negative Reviewed, dictated and finalized at location A. DIRECTOR RN
== END 2023-11-06 09:51 | disposition home or self-care (01) ==
LOC: ANHIMG 09:51
PROVIDERS: PCP Physician Assistant; Visit Provider Nurse Practitioner
DX: Z12.31 Encounter for screening mammogram for malignant neoplasm of breast (principal)
CPT/HCPCS: 77063; 77067

== ENCOUNTER 2024-11-24 15:11 | Outpatient (CLI) | payer BC, SELFPAY ==
--- NOTE | ~2024-11-24 | XR_ITS ---
EXAMINATION: XR thoracic spine 2V DATE: 11/24/2024 15:38 INDICATION: Chronic mid back pain TECHNIQUE: One AP, lateral and lateral swimmer's views of the thoracic spine were obtained. COMPARISON: None. FINDINGS: 15 degrees midthoracic dextroscoliosis. Sagittal alignment is normal. Vertebral body heights are norm al. Mild thoracic spondylosis with bridging osteophytes at multiple levels consistent with diffuse id iopathic skeletal hyperostosis (DISH). Visualized portions of the lungs are clear. Heart size is norm al. IMPRESSION: 1. Mild thoracic dextroscoliosis with mild spondylosis. Reviewed, dictated and finalized at location A. OUT OPERATOR
--- NOTE | ~2024-11-24 | XR_ITS ---
EXAMINATION: XR shoulder RT min 2V DATE: 11/24/2024 15:38 INDICATION: Right shoulder pain TECHNIQUE: AP internally and externally rotated, AP oblique externally rotated and transscapular Y vi ews of the right shoulder were obtained. COMPARISON: None FINDINGS: Normal alignment. No fracture. Glenohumeral joint is normal. Moderate right acromioclavicular osteoa rthritis. There are bridging osteophytes at multiple levels consistent with diffuse idiopathic skelet al hyperostosis (DISH). Soft tissues are unremarkable. Visualized portion of the lungs are clear. IMPRESSION: Moderate right acromioclavicular osteoarthritis. Reviewed, dictated and finalized at location A. F DEVELOPER
== END 2024-11-24 15:12 | disposition home or self-care (01) ==
LOC: MICIMG 15:14
PROVIDERS: PCP Physician Assistant; Visit Provider Chiropractor
DX: M25.511 Pain in right shoulder (principal); M54.6 Pain in thoracic spine
CPT/HCPCS: 72070; 73030

== ENCOUNTER 2024-11-25 14:19 | Outpatient (CLI) | payer BC, SELFPAY ==
--- NOTE | ~2024-11-25 | MM_ITS ---
EXAMINATION: MM screening [facility] BI w rachael HISTORY: Screening TECHNIQUE: Craniocaudal and mediolateral oblique 3-D tomosynthesis images were obtained and synthetic 2-D images were generated. CAD analysis was submitted and interpreted. COMPARISON: Comparison to multiple prior studies sequentially, with oldest reviewed study dated 06/25. BREAST PARENCHYMAL COMPOSITION: Not dense: There are scattered areas of fibroglandular density. FINDINGS: There is no evidence of suspicious mass, calcification, or architectural distortion to sugg est malignancy in either breast. There has been no suspicious interval change. IMPRESSION: 1. No mammographic evidence of malignancy. 2. Recommend routine screening mammography in one year. BI-RADS Category 1: Negative Reviewed, dictated and finalized at location A. CUTTING MACHINE OPERATOR
--- OUTSIDE RECORDS SUMMARY | 2024-11-27 18:48 | XMS_ITS | Data Portability ---
Author Organization [place] - [facility], Main Office Address [address] [place] [address] Assessment No assessment recorded. Plan of Treatment Reminders Order Date Submit Date Provider Last Modified By Organization Details Last Modified Time Details Appointments None recorded. Lab CBC w/ auto diff 2022 023 ÁNGEL [facility], [address], [place], [place], [address], 3 07:17:31 HbA1c (hemoglobi n A1c), blood 2022 023 [facility], [address], [place], [place], [address], 4 11:06:52 insulin, serum 2022 023 [facility], [address], [place], [place], [address], 4 11:06:52 lipid panel, serum 2022 023 [facility], [address], [place], [place], [address], 4 11:06:52 TSH + free T4, serum 2022 023 [facility], [address], [place], [place], [address], 4 11:06:51 T3, free, serum or plasma 2022 023 [email or web address], [address], [place], [address], 4 11:06:51 CMP, serum or plasma 2022 023 [email or web address], [address], [place], [address], 4 11:06:52 Referral None recorded. Procedures None recorded. Surgeries None recorded. Imaging None recorded. Medication Orders omega-3 acid ethyl esters 1 gram capsule 2022 023 [facility] [place], [address], 3 16:34:59 Unithroid 137 mcg tablet [email or web address] [place] [address] Pharmacy [address], [address] [place], [address], 3 17:40:35 Patient TargetsNo targets recorded. Patient InstructionsNo instructions recorded. Reason for Referral None Reported. Results Created Date Observation Date Name Description Value Unit Range Abnormal Flag Note LastModifiedBy Organization Detail LastModifiedTime 09/13/20 22 09/15/2022 TSH+F REE T4 TSH 3.89 mIU/L 0.40-4 .50 normal Not Available [facility] [address], [address], 09/15/2022 19:55:34 09/13/20 22 09/15/2022 TSH+F REE T4 T4, free 1.1 NG/dL 0.8-1. 8 normal Not Available [facility] [address], [address], 09/15/2022 19:55:34 09/13/20 22 09/15/2022 T3, FREE T3, free 3.0 pg/mL 2.3-4. 2 normal Not Available [facility] [address], [address], 09/15/2022 19:55:34 09/13/20 22 09/15/2022 VITAM IN B12/F OLATE , SERUM PANEL vitamin B12 519 pg/mL 200-11 00 normal Not Available [address], [address], 09/15/2022 19:55:33 09/13/20 22 09/15/2022 VITAM IN B12/F OLATE , SERUM PANEL folate, serum 11.2 NG/mL normal Refer ence Range Low: <3.4 Borde rline : 3.4-5 .4 Almita l: >5.4 Not Available [address], [address], 09/15/2022 19:55:33 09/13/20 22 09/15/2022 DHEA SULFA TE DHEA sulfate 42 mcg/d L 5-167 normal DHEA- S value s fall with advan cing age. For refer ence, the refer ence inter vals for 31-40 year old patie nts are: Male: 93-41 5 mcg/d L Femal e: 19-23 7 mcg/d L Not Available [address], [address], 09/15/2022 19:55:33 09/13/20 22 09/15/2022 THYRO ID PEROX IDASE ANTIB ODIES thyroid peroxidase antibodies 60 IU/mL <9 high Not Available [address], [address], 09/15/2022 19:55:32 09/13/20 22 09/15/2022 COMPR EHENS ANALY METAB OLIC PANEL glucose 80 mg/dL 65-99 normal Fasti ng refer ence inter mckenna Not Available [address], [address], 09/15/2022 19:55:32 09/13/20 22 09/15/2022 COMPR EHENS ANALY METAB OLIC PANEL urea nitrogen (BUN) 16 mg/dL 7-25 normal Not Available [address] [address] [place], [address], 09/15/2022 19:55:32 09/13/20 22 09/15/2022 COMPR EHENS ANALY METAB OLIC PANEL creatinine 0.61 mg/dL 0.50-1 .03 normal Not Available [address] [address] [place], [address], 09/15/2022 19:55:32 09/13/20 22 09/15/2022 COMPR EHENS ANALY METAB OLIC PANEL eGFR 103 mL/mi n/1.7 3m2 > or = 60 normal The eGFR is based on the CKD-E PI 2020 equat ion. To calcu late the new eGFR from a previ ous Creat inine or Cysta tin C resul t, go to https ://lauren ma.stephen osman/jean yap s/ kdoqi /gfr% 5Fcal culat or Not Available [address] [address] [place], [address], 09/15/2022 19:55:32 09/13/20 22 09/15/2022 COMPR EHENS ANALY METAB OLIC PANEL BUN/creatini ne ratio not applic able (calc ) 6-22 Not Available [address], [address], 09/15/2022 19:55:32 09/13/20 22 09/15/2022 COMPR EHENS ANALY METAB OLIC PANEL sodium 140 mmol/ L 135-14 6 normal Not Available [address], [address], 09/15/2022 19:55:32 09/13/20 22 09/15/2022 COMPR EHENS ANALY METAB OLIC PANEL potassium 4.0 mmol/ L 3.5-5. 3 normal Not Available [facility] [address] [address] [place], [address], 09/15/2022 19:55:32 09/13/20 22 09/15/2022 COMPR EHENS ANALY METAB OLIC PANEL chloride 102 mmol/ L 98-110 normal Not Available [address], [address], 09/15/2022 19:55:32 09/13/20 22 09/15/2022 COMPR EHENS ANALY METAB OLIC PANEL carbon dioxide 28 mmol/ L 20-32 normal Not Available [address], [address], 09/15/2022 19:55:32 09/13/20 22 09/15/2022 COMPR EHENS ANALY METAB OLIC PANEL calcium 9.8 mg/dL 8.6-10 .4 normal Not Available [address], [address], 09/15/2022 19:55:32 09/13/20 22 09/15/2022 COMPR EHENS ANALY METAB OLIC PANEL protein, total 7.1 g/dL 6.1-8. 1 normal Not Available [address], [address], 09/15/2022 19:55:32 09/13/20 22 09/15/2022 COMPR EHENS ANALY METAB OLIC PANEL albumin 4.4 g/dL 3.6-5. 1 normal Not Available [address], [address], 09/15/2022 19:55:32 09/13/20 22 09/15/2022 COMPR EHENS ANALY METAB OLIC PANEL globulin 2.7 g/dL_ (calc ) 1.9-3. 7 normal Not Available [address], [address], 09/15/2022 19:55:32 09/13/20 22 09/15/2022 COMPR EHENS ANALY METAB OLIC PANEL albumin/glob ulin ratio 1.6 (calc ) 1.0-2. 5 normal Not Available [address], [address], 09/15/2022 19:55:32 09/13/20 22 09/15/2022 COMPR EHENS ANALY METAB OLIC PANEL bilirubin, total 0.6 mg/dL 0.2-1. 2 normal Not Available [address], [address], 09/15/2022 19:55:32 09/13/20 22 09/15/2022 COMPR EHENS ANALY METAB OLIC PANEL alkaline phosphatase 86 U/L 37-153 normal Not Available [address], [address], 09/15/2022 19:55:32 09/13/20 22 09/15/2022 COMPR EHENS ANALY METAB OLIC PANEL AST 55 U/L 10-35 high Not Available [address], [address], 09/15/2022 19:55:32 09/13/20 22 09/15/2022 COMPR EHENS ANALY METAB OLIC PANEL ALT 62 U/L 6-29 high Not Available [address], [address], 09/15/2022 19:55:32 09/13/20 22 09/15/2022 LIPID PANEL , STAND KELLE cholesterol, total 163 mg/dL <200 normal Not Available [address], [address], 09/15/2022 19:55:32 09/13/20 22 09/15/2022 LIPID PANEL , STAND KELLE HDL cholesterol 44 mg/dL > or = 50 low Not Available [address], [address], 09/15/2022 19:55:32 09/13/20 22 09/15/2022 LIPID PANEL , STAND KELLE triglyceride s 138 mg/dL <150 normal Not Available [facility] [id number] [place] [address], [address], 09/15/2022 19:55:32 09/13/20 22 09/15/2022 LIPID PANEL , STAND KELLE LDL-choleste rol 95 mg/dL _(carol c) normal Refer ence range : <100 Deb able range <100 mg/dL for prima ry preve ntion ; <70 mg/dL for patie nts with CHD or diabe tic patie nts with > or = 2 CHD risk facto rs. LDL-C is now calcu lated using the Stefanie n-Hop kins calcu denise n, which is a valid ated novel metho d provi ding gwyn r accur acy than the Fried lyssa equat ion in the estim ation of LDL-C . Stefanie adair SS et al. EUGENIO. 2013; 310(1 9): 2061- 2068 (http ://ed ucati on.Qu jayme818 [employer]. com/f aq/FA Q164) Not Available [facility] [address] [place], [address], 09/15/2022 19:55:32 09/13/20 22 09/15/2022 LIPID PANEL , STAND KELLE chol/HDLC ratio 3.7 (calc ) <5.0 normal Not Available [facility] [address] [place], [address], 09/15/2022 19:55:32 09/13/20 22 09/15/2022 LIPID PANEL , STAND KELLE non HDL cholesterol 119 mg/dL _(carol c) <130 normal For patie nts with diabe ntaalia plus 1 major ASCVD risk facto r, treat ing to a non-H DL-C goal of <100 mg/dL (LDL- C of <70 mg/dL ) is consi dered a thera peuti c optio n. Not Available [facility] [address] [facility] [place], [address], 09/15/2022 19:55:32 09/13/20 22 09/15/2022 TESTO STERO NE, FREE, BIOAV AILAB LE AND TOTAL , MS albumin 4.4 g/dL 3.6-5. 1 Not Available [address], [address], 09/15/2022 19:55:31 09/13/20 22 09/15/2022 TESTO STERO NE, FREE, BIOAV AILAB LE AND TOTAL , MS sex hormone binding globulin 25.0 nmol/ L 14-73 Not Available [address], [address], 09/15/2022 19:55:31 09/13/20 22 09/15/2022 TESTO STERO NE, FREE, BIOAV AILAB LE AND TOTAL , MS testosterone , free 2.6 pg/mL 0.2-5. 0 Not Available [address], [address], 09/15/2022 19:55:31 09/13/20 22 09/15/2022 TESTO STERO NE, FREE, BIOAV AILAB LE AND TOTAL , MS testosterone ,bioavailabl e 5.2 NG/dL 0.5-8. 5 Not Available [address], [address], 09/15/2022 19:55:31 09/13/20 22 09/15/2022 TESTO STERO NE, FREE, BIOAV AILAB LE AND TOTAL , MS testosterone , total, MS 18 NG/dL 2-45 For addit ional camila farmer e refer to https ://ed ucati on.qu aki [employer]. com/f aq/FA Q165 (This link is being provi ded for infor massiel nal/e ducat ional purpo ses only. ) (Note ) This test was devel oped and its dylan tical perfo rmanc e laura cteri stics have been deter mined by [employer]. It has not been clear ed or appro arnoldo by the FDA. This assay has been valid ated pursu ant to the CLIA regul ation s and is used for clini carol purpo ses. MDF med fusio n [address] [facility] [address] [place] [address] [phone] Ervin morales MD Not Available [facility] [address] [address] [place], [address], 09/15/2022 19:55:31 09/13/20 22 09/15/2022 IRON, TIBC AND ROCCO TIN PANEL iron, total 67 mcg/d L 45-160 normal Not Available [facility] [address] [address] [place], [address], 09/15/2022 19:55:31 09/13/20 22 09/15/2022 IRON, TIBC AND ROCCO TIN PANEL iron binding capacity 357 mcg/d L_(ca lc) 250-45 0 normal Not Available [facility] [address] [address] [place], [address], 09/15/2022 19:55:31 09/13/20 22 09/15/2022 IRON, TIBC AND ROCCO TIN PANEL % saturation 19 %_(ca lc) 16-45 normal Not Available [facility] [address] [address] [place], [address], 09/15/2022 19:55:31 09/13/20 22 09/15/2022 IRON, TIBC AND ROCCO TIN PANEL ferritin 55 NG/mL 16-232 normal Not Available [facility] [address] [address] [place], [address], 09/15/2022 19:55:31 04/13/20 23 04/16/2023 LIPID PANEL , STAND KELLE cholesterol, total 150 mg/dL <200 normal Not Available [facility] [address] [address] [place], [address], 04/16/2023 08:50:21 04/13/20 23 04/16/2023 LIPID PANEL , STAND KELLE HDL cholesterol 44 mg/dL > or = 50 low Not Available [facility] [address] [place], [address], 04/16/2023 08:50:21 04/13/20 23 04/16/2023 LIPID PANEL , STAND KELLE triglyceride s 128 mg/dL <150 normal Not Available [facility] [address] [place], [address], 04/16/2023 08:50:21 04/13/20 23 04/16/2023 LIPID PANEL , STAND KELLE LDL-choleste rol 84 mg/dL _(carol c) normal Refer ence range : <100 Deb able range <100 mg/dL for prima ry preve ntion ; <70 mg/dL for patie nts with CHD or diabe tic patie nts with > or = 2 CHD risk facto rs. LDL-C is now calcu lated using the Stefanie n-Hop kins calcu latjacoby n, which is a valid ated novel pat d amarilys beth accur acy than the Fried lyssa equat ion in the estim ation of LDL-C . Stefanie adair SS et al. EUGENIO. 2013; 310(1 9): 2061- 2068 (http ://ed ucati on.Qu Aki [employer]. com/f aq/FA Q164) Not Available [facility] [address], [address], 04/16/2023 08:50:21 04/13/20 23 04/16/2023 LIPID PANEL , STAND KELLE chol/HDLC ratio 3.4 (calc ) <5.0 normal Not Available [facility] [id number] [place] [address], [address], 04/16/2023 08:50:21 04/13/20 23 04/16/2023 LIPID PANEL , STAND KELLE non HDL cholesterol 106 mg/dL _(acrol c) <130 normal For patie nts with diabe natalia plus 1 major ASCVD risk facto r, treat ing to a non-H DL-C goal of <100 mg/dL (LDL- C of <70 mg/dL ) is fabiola biggs optio n. Not Available [address] [address] [place], [address], 04/16/2023 08:50:21 04/13/20 23 04/16/2023 COMPR EHENS ANALY METAB OLIC PANEL glucose 91 mg/dL 65-99 normal Fasti ng refer ence inter mckenna Not Available [facility] [address] [address] [place], [address], 04/16/2023 08:50:21 04/13/20 23 04/16/2023 COMPR EHENS ANALY METAB OLIC PANEL urea nitrogen (BUN) 18 mg/dL 7-25 normal Not Available [address] [address] [place], [address], 04/16/2023 08:50:21 04/13/20 23 04/16/2023 COMPR EHENS ANALY METAB OLIC PANEL creatinine 0.66 mg/dL 0.50-1 .05 normal Not Available [address] [address] [place], [address], 04/16/2023 08:50:21 04/13/20 23 04/16/2023 COMPR EHENS ANALY METAB OLIC PANEL eGFR 100 mL/mi n/1.7 3m2 > or = 60 normal The eGFR is based on the CKD-E PI 2020 equat ion. To calcu late the new eGFR from a previ ous Creat inine or Cysta duglas C resul t, go to https ://lauren osman/jean yap s/ kdoqi /gfr% 5Fcal culat or Not Available [address] [address] [place], [address], 04/16/2023 08:50:21 04/13/20 23 04/16/2023 COMPR EHENS ANALY METAB OLIC PANEL BUN/creatini ne ratio NOT APPLIC ABLE (calc ) 6-22 Not Available [address], [address], 04/16/2023 08:50:21 04/13/20 23 04/16/2023 COMPR EHENS ANALY METAB OLIC PANEL sodium 142 mmol/ L 135-14 6 normal Not Available [address], [address], 04/16/2023 08:50:21 04/13/20 23 04/16/2023 COMPR EHENS ANALY METAB OLIC PANEL potassium 4.4 mmol/ L 3.5-5. 3 normal Not Available [address], [address], 04/16/2023 08:50:21 04/13/20 23 04/16/2023 COMPR EHENS ANALY METAB OLIC PANEL chloride 104 mmol/ L 98-110 normal Not Available [address], [address], 04/16/2023 08:50:21 04/13/20 23 04/16/2023 COMPR EHENS ANALY METAB OLIC PANEL carbon dioxide 30 mmol/ L 20-32 normal Not Available [address], [address], 04/16/2023 08:50:21 04/13/20 23 04/16/2023 COMPR EHENS ANALY METAB OLIC PANEL calcium 9.9 mg/dL 8.6-10 .4 normal Not Available [address], [address], 04/16/2023 08:50:21 04/13/20 23 04/16/2023 COMPR EHENS ANALY METAB OLIC PANEL protein, total 7.2 g/dL 6.1-8. 1 normal Not Available [address], [address], 04/16/2023 08:50:21 04/13/20 23 04/16/2023 COMPR EHENS ANALY METAB OLIC PANEL albumin 4.3 g/dL 3.6-5. 1 normal Not Available [address], [address], 04/16/2023 08:50:21 04/13/20 23 04/16/2023 COMPR EHENS ANALY METAB OLIC PANEL globulin 2.9 g/dL_ (calc ) 1.9-3. 7 normal Not Available [address], [address], 04/16/2023 08:50:21 04/13/20 23 04/16/2023 COMPR EHENS ANALY METAB OLIC PANEL albumin/glob ulin ratio 1.5 (calc ) 1.0-2. 5 normal Not Available [address], [address], 04/16/2023 08:50:21 04/13/20 23 04/16/2023 COMPR EHENS ANALY METAB OLIC PANEL bilirubin, total 0.5 mg/dL 0.2-1. 2 normal Not Available [address], [address], 04/16/2023 08:50:21 04/13/20 23 04/16/2023 COMPR EHENS ANALY METAB OLIC PANEL alkaline phosphatase 90 U/L 37-153 normal Not Available [address] [address] [place], [address], 04/16/2023 08:50:21 04/13/20 23 04/16/2023 COMPR EHENS ANALY METAB OLIC PANEL AST 46 U/L 10-35 high Not Available [address] [place], [address], 04/16/2023 08:50:21 06/0904/16/2023 COMPR EHENS ANALY METAB OLIC PANEL ALT 39 U/L 6-29 high Not Available [facility] [address], [address], 04/16/2023 08:50:21 04/13/2004/16/2023 THYRO ID PEROX IDASE ANTIB ODIES thyroid peroxidase antibodies 93 IU/mL <9 high Not Available [facility] [address], [address], 04/16/2023 08:50:22 04/13/2004/16/2023 INSUL IN insulin 39.0 uIU/m L high Refer ence Range < or = 18.4 Risk: Optim al < or = 18.4 Moder ate NA High >18.4 Adult cardi ovasc ular event risk categ ory cut point s (opti mal, moder ate, high) are based on Insul in Refer ence Inter mckenna studi es perfo rmed at [facility] in 2021. Not Available [facility] [address], [address], 04/16/2023 08:50:23 04/13/2004/16/2023 T3, FREE T3, free 3.3 pg/mL 2.3-4. 2 normal Not Available [facility] [address], [address], 04/16/2023 08:50:23 04/13/2004/16/2023 TSH+F REE T4 TSH 3.12 mIU/L 0.40-4 .50 normal Not Available [facility] [address], [address], 04/16/2023 08:50:24 04/13/2004/16/2023 TSH+F REE T4 T4, free 1.1 NG/dL 0.8-1. 8 normal Not Available [facility] [address], [address], 04/16/2023 08:50:24 04/13/20 23 04/16/2023 HEMOG LOBIN A1C hemoglobin A1C 5.3 %_of_ total _HGB <5.7 normal For the purpo se of deysi marie for the prese nce of diabe natalia: <5.7% Consi stent with the absen ce of diabe natalia 5.7-6 .4% Consi stent with incre ased risk for diabe natalia (pred iabet es) > or =6.5% Consi stent with diabe natalia This assay resul t is consi stent with a decre ased risk of diabe natalia. Curre ntly, no conse nsus exist s chirag florian use of hemog lobin A1c for diagn osis of diabe natalia in child flory. Accor ding to Ameri can Diabe natalia Assoc iatio n (ADA) guide lines , hemog lobin A1c <7.0% repre sents optim al contr ol in non-p regna nt diabe tic patie nts. Diffe rent metri cs may apply to speci fic patie nt popul ation s. Stand ards of Medic al Care in Diabe natalia(A DA). Not Available [facility] [address] [address] [place], [address], 04/16/2023 08:50:25 10/12/20 23 10/13/2023 CBC (INCL UDES DIFF/ PLT) white blood cell count 6.1 thous and/u L 3.8-10 .8 normal Not Available [facility] [address] [address] [place], [address], 10/13/2023 07:17:31 10/12/20 23 10/13/2023 CBC (INCL UDES DIFF/ PLT) red blood cell count 5.18 catherine on/uL 3.80-5 .10 high Not Available [facility] [address] [place], [address], 10/13/2023 07:17:31 10/12/20 23 10/13/2023 CBC (INCL UDES DIFF/ PLT) hemoglobin 15.0 g/dL 11.7-1 5.5 normal Not Available [address], [address], 10/13/2023 07:17:31 10/12/20 23 10/13/2023 CBC (INCL UDES DIFF/ PLT) hematocrit 45.6 % 35.0-4 5.0 high Not Available [address], [address], 10/13/2023 07:17:31 10/12/20 23 10/13/2023 CBC (INCL UDES DIFF/ PLT) MCV 88.0 fL 80.0-1 00.0 normal Not Available [address], [address], 10/13/2023 07:17:31 10/12/20 23 10/13/2023 CBC (INCL UDES DIFF/ PLT) MCH 29.0 pg 27.0-3 3.0 normal Not Available [address], [address], 10/13/2023 07:17:31 10/12/20 23 10/13/2023 CBC (INCL UDES DIFF/ PLT) MCHC 32.9 g/dL 32.0-3 6.0 normal Not Available [address], [address], 10/13/2023 07:17:31 10/12/20 23 10/13/2023 CBC (INCL UDES DIFF/ PLT) RDW 13.7 % 11.0-1 5.0 normal Not Available [address], [address], 10/13/2023 07:17:31 10/12/20 23 10/13/2023 CBC (INCL UDES DIFF/ PLT) platelet count 212 thous and/u L 140-40 0 normal Not Available [address], [address], 10/13/2023 07:17:31 10/12/20 23 10/13/2023 CBC (INCL UDES DIFF/ PLT) MPV 11.0 fL 7.5-12 .5 normal Not Available [address], [address], 10/13/2023 07:17:31 10/12/20 23 10/13/2023 CBC (INCL UDES DIFF/ PLT) absolute neutrophils 3343 cells /uL 1500-7 800 normal Not Available [address], [address], 10/13/2023 07:17:31 10/12/20 23 10/13/2023 CBC (INCL UDES DIFF/ PLT) absolute lymphocytes 1915 cells /uL 850-39 00 normal Not Available [address], [address], 10/13/2023 07:17:31 10/12/20 23 10/13/2023 CBC (INCL UDES DIFF/ PLT) absolute monocytes 433 cells /uL 200-95 0 normal Not Available [address], [address], 10/13/2023 07:17:31 10/12/20 23 10/13/2023 CBC (INCL UDES DIFF/ PLT) absolute eosinophils 329 cells /uL 15-500 normal Not Available [address], [address], 10/13/2023 07:17:31 10/12/20 23 10/13/2023 CBC (INCL UDES DIFF/ PLT) absolute basophils 79 cells /uL 0-200 normal Not Available [address], [address], 10/13/2023 07:17:31 10/12/20 23 10/13/2023 CBC (INCL UDES DIFF/ PLT) neutrophils 54.8 % normal Not Available [address] [place], [address], 10/13/2023 07:17:31 10/12/20 23 10/13/2023 CBC (INCL UDES DIFF/ PLT) lymphocytes 31.4 % normal Not Available [facility] [address], [address], 10/13/2023 07:17:31 10/12/20 23 10/13/2023 CBC (INCL UDES DIFF/ PLT) monocytes 7.1 % normal Not Available [facility] [address], [address], 10/13/2023 07:17:31 10/12/20 23 10/13/2023 CBC (INCL UDES DIFF/ PLT) eosinophils 5.4 % normal Not Available [facility] [address], [address], 10/13/2023 07:17:31 10/12/20 23 10/13/2023 CBC (INCL UDES DIFF/ PLT) basophils 1.3 % normal Not Available [facility] [address], [address], 10/13/2023 07:17:31 08/18/20 24 08/19/2024 TSH+F REE T4 TSH 1.17 mIU/L 0.40-4 .50 normal Not Available [facility] [address], [address], 08/19/2024 07:36:24 08/18/20 24 08/19/2024 TSH+F REE T4 T4, free 1.1 NG/dL 0.8-1. 8 normal Not Available [facility] [address], [address], 08/19/2024 07:36:24 08/18/20 24 08/19/2024 LIPID PANEL WITH RATIO S cholesterol, total 124 mg/dL <200 normal Not Available [address], [address], 08/19/2024 07:36:26 08/18/20 24 08/19/2024 LIPID PANEL WITH RATIO S HDL cholesterol 40 mg/dL > or = 50 low Not Available [facility] [id number] [place] [address], [address], 08/19/2024 07:36:26 08/18/20 24 08/19/2024 LIPID PANEL WITH RATIO S triglyceride s 127 mg/dL <150 normal Not Available [address] [address] [place], [address], 08/19/2024 07:36:26 08/18/2008/19/2024 LIPID PANEL WITH RATIO S LDL-choleste rol 63 mg/dL _(carol c) normal Refer ence range : <100 Deb able range <100 mg/dL for prima ry preve ntion ; <70 mg/dL for patie nts with CHD or diabe tic patie nts with > or = 2 CHD risk facto rs. LDL-C is now calcu lated using the Stefanie n-Hop kins calcu denise n, which is a valid ated novel pat aparicio than the Fried lyssa equat ion in the estim ation of LDL-C . Stefanie adair SS et al. EUGENIO. 2013; 310(1 9): 2061- 2068 (http ://ed ucati on.Christine sandss. com/f aq/FA Q164) Not Available [address] [address] [place], [address], 08/19/2024 07:36:26 08/18/20 24 08/19/2024 LIPID PANEL WITH RATIO S chol/HDLC ratio 3.1 (calc ) <5.0 normal Not Available [address] [address] [place], [address], 08/19/2024 07:36:26 08/18/20 24 08/19/2024 LIPID PANEL WITH RATIO S LDL/HDL ratio 1.6 (calc ) Below avera ge Risk: <2.34 [place] Risk: 2.35- 4.12 Moder ate Risk: 4.13- 5.56 High Risk: >5.57 Not Available [address], [address], 08/19/2024 07:36:26 08/18/20 24 08/19/2024 LIPID PANEL WITH RATIO S non HDL cholesterol 84 mg/dL _(carol c) <130 normal For patie nts with diabe natalia plus 1 major ASCVD risk facto r, treat ing to a non-H DL-C goal of <100 mg/dL (LDL- C of <70 mg/dL ) is thangi toshia a ward peuti c optio n. Not Available [address] [address] [place], [address], 08/19/2024 07:36:26 08/18/20 24 08/19/2024 COMPR EHENS ANALY METAB OLIC PANEL glucose 81 mg/dL 65-99 normal Fasti ng refer ence inter mckenna Not Available [address] [address] [place], [address], 08/19/2024 07:36:27 08/18/20 24 08/19/2024 COMPR EHENS ANALY METAB OLIC PANEL urea nitrogen (BUN) 13 mg/dL 7-25 normal Not Available [address] [address] [place], [address], 08/19/2024 07:36:27 08/18/20 24 08/19/2024 COMPR EHENS ANALY METAB OLIC PANEL creatinine 0.56 mg/dL 0.50-1 .05 normal Not Available [address], [address], 08/19/2024 07:36:27 08/18/20 24 08/19/2024 COMPR EHENS ANALY METAB OLIC PANEL eGFR 104 mL/mi n/1.7 3m2 > or = 60 normal Not Available [address] [place], [address], 08/19/2024 07:36:27 08/18/2008/19/2024 COMPR EHENS ANALY METAB OLIC PANEL BUN/creatini ne ratio SEE NOTE: (calc ) 6-22 Not Repor villa: BUN and Creat inine are withi n refer ence range . Not Available [address] [address] [place], [address], 08/19/2024 07:36:27 08/18/2008/19/2024 COMPR EHENS ANALY METAB OLIC PANEL sodium 143 mmol/ L 135-14 6 normal Not Available [address], [address], 08/19/2024 07:36:27 08/18/2008/19/2024 COMPR EHENS ANALY METAB OLIC PANEL potassium 3.8 mmol/ L 3.5-5. 3 normal Not Available [address] [address] [place], [address], 08/19/2024 07:36:27 08/18/2008/19/2024 COMPR EHENS ANALY METAB OLIC PANEL chloride 103 mmol/ L 98-110 normal Not Available [address] [address] [place], [address], 08/19/2024 07:36:27 08/18/2008/19/2024 COMPR EHENS ANALY METAB OLIC PANEL carbon dioxide 33 mmol/ L 20-32 high Not Available [address] [address] [place], [address], 08/19/2024 07:36:27 08/18/2008/19/2024 COMPR EHENS ANALY METAB OLIC PANEL calcium 9.7 mg/dL 8.6-10 .4 normal Not Available [address] [address] [place], [address], 08/19/2024 07:36:27 08/18/20 24 08/19/2024 COMPR EHENS ANALY METAB OLIC PANEL protein, total 6.8 g/dL 6.1-8. 1 normal Not Available [address], [address], 08/19/2024 07:36:27 08/18/20 24 08/19/2024 COMPR EHENS ANALY METAB OLIC PANEL albumin 4.3 g/dL 3.6-5. 1 normal Not Available [address], [address], 08/19/2024 07:36:27 08/18/2008/19/2024 COMPR EHENS ANALY METAB OLIC PANEL globulin 2.5 g/dL_ (calc ) 1.9-3. 7 normal Not Available [address], [address], 08/19/2024 07:36:27 08/18/20 24 08/19/2024 COMPR EHENS ANALY METAB OLIC PANEL albumin/glob ulin ratio 1.7 (calc ) 1.0-2. 5 normal Not Available [address], [address], 08/19/2024 07:36:27 08/18/20 24 08/19/2024 COMPR EHENS ANALY METAB OLIC PANEL bilirubin, total 0.5 mg/dL 0.2-1. 2 normal Not Available [address], [address], 08/19/2024 07:36:27 08/18/20 24 08/19/2024 COMPR EHENS ANALY METAB OLIC PANEL alkaline phosphatase 101 U/L 37-153 normal Not Available [address], [address], 08/19/2024 07:36:27 10/14/20 24 08/19/2024 COMPR EHENS ANALY METAB OLIC PANEL AST 20 U/L 10-35 normal Not Available [facility] [address] [address], [place], [address], 08/19/2024 07:36:27 08/18/20 24 08/19/2024 COMPR EHENS ANALY METAB OLIC PANEL ALT 21 U/L 6-29 normal Not Available [facility] [address] [address], [place], [address], 08/19/2024 07:36:27 08/18/20 24 08/19/2024 HEMOG LOBIN A1C hemoglobin A1C 5.4 %_of_ total _HGB <5.7 normal For the purpo se of screefra marie for the prese nce of diabe natalia: <5.7% Consi stent with the absen ce of diabe natalia 5.7-6 .4% Consi stent with incre ased risk for diabe natalia (pred iabet es) > or =6.5% Consi stent with diabe natalia This assay resul t is consi stent with a decre ased risk of diabe natalia. Curre ntly, no conse nsus exist s chirag florian use of hemog lobin A1c for diagn osis of diabe natalia in child flory. Accor ding to Ameri can Diabe nat[place] Assoc iatio n (ADA) guide lines , hemog lobin A1c <7.0% repre sents optim al contr ol in non-p regna nt diabe tic patie nts. Diffe rent metri cs may apply to speci fic patie nt popul ation s. Stand ards of Medic al Care in Diabe natalia(A DA). Not Available [facility] [address] [address], [place], [address], 08/19/2024 07:36:27 07/21/20 22 07/20/2022 XR, chest , 2 view No observ ation record ed. [id number] [facility] [address] [place] [address] [address], [place], [address], 01/03/2023 05:06:32 08/09/20 22 08/04/2022 US, echoc ardio gram, trans thora cic, compl ete, w/ color flow No observ ation record ed. [id number] [facility] [address], [place], [address], 01/03/2023 05:06:32 09/14/20 22 08/21/2022 sandie r monit or No observ ation record ed. [id number] [facility] [address], [place], [address], 01/03/2023 05:06:32 10/27/20 22 09/13/2022 sandie r monit or No observ ation record ed. [id number] Not Available 01/03/2023 05:06:32 11/12/19 24 11/06/2023 MAMMO , scree frank, digit al, bilat eral No observ ation record ed. [email or web address] [facility] [address], [place], [address], 11/13/2023 12:16:10 Result Notes None recorded. Problems Name Problem SNOMED Code Status Onset Date Resolution Date Notes Provider Name and Address Organization Details Recorded Time Gastroesop hageal reflux disease without esophagiti s 161515214 Active 2022 KRALOS Sevilla [address], [place], [address] , [employer] 3 12:36:00 Acute upper respirator y infection 41282155 Active 2022 KARLOS Sevilla [address], [place], [address] , [employer] 3 13:14:15 Impaired fasting glycemia 799163968 Active 2022 KARLOS Sevilla [address], [address], [place], [address] , [employer] 3 11:26:20 Mixed hyperlipid emia 121093079 Active 2022 KARLOS Sevilla [address] [facility], [address] [address], [place], [address] , [facility] 3 11:26:31 Decreased hearing 704207099 Active 2021 Not Available [facility] 3 04:52:46 Acute bronchitis 90608301 Active 2021 Not Available [facility] 3 04:52:46 Disorder of left tympanic membrane 5478343816117 105 Active 2021 Not Available [facility] 3 04:52:46 Pre-surger y evaluation Active 2021 Not Available [facility] 3 04:52:46 Benign essential hypertensi on 6546965 Active 2021 Not Available [facility] 3 04:52:47 Fluttering heart 068847747 Active 2021 Not Available [facility] 3 04:52:47 Abnormal urinalysis 495534107 Active 2021 Not Available [facility] 3 04:52:47 Mixed anxiety and depressive disorder 110184021 Active 2018 Not Available [facility] 3 04:52:47 Acute fungal otitis externa 539833973 Active 2021 Not Available [facility] 3 04:52:47 Hypothyroi dism due to Stephanie' s thyroiditi s 961848066 Active 2018 Not Available [facility] 3 04:52:47 Ventricula r premature complex 984346313 Active 2021 Not Available [facility] 3 04:52:47 Premature atrial contractio n 617363567 Active 2021 Not Available [facility] 3 04:52:47 Otitis externa 6268525 Active 2021 Not Available [facility] 3 04:52:47 Vitamin D deficiency 91406271 Active 2019 Not Available [facility] 3 04:52:47 Diastolic dysfunctio n 8751839 Active 2021 Not Available [facility] 3 04:52:48 Depressive disorder 47728531 Active 2019 Not Available [facility] 3 04:52:48 Migraine 27658076 Active 2019 Not Available [facility] 3 04:52:48 Hypertensi ve disorder 62688918 Active 2019 Not Available [facility] 3 04:52:48 Left ventricula r diastolic dysfunctio n 503441039 Active 2021 Not Available [facility] 3 04:52:48 Hypothyroi dism 86902149 Active 2019 Not Available [facility] 3 04:52:48 Postviral cough 902241253 Active 2021 Not Available [facility] 3 04:52:48 Anxiety 43920624 Active 2019 Not Available [facility] 3 04:52:48 Parkinson' s disease 07772662 Active 2019 Not Available [facility] 3 04:52:48 Cough 19252003 Active 2021 Not Available [facility] 3 04:52:49 Upper respirator y infection 39119647 Active 2021 Not Available [facility] 3 04:52:49 Hyperlipid emia 53659194 Active 2019 Not Available [facility] 3 04:52:49 Essential hypertensi on 36918941 Active 2019 Not Available [facility] 3 04:52:49 Obstructiv e sleep apnea syndrome 87362542 Active 2018 Not Available [facility] 3 04:52:49 COVID-19 821748678 Active 2021 Not Available [facility] 3 04:52:49 Heart murmur 64198654 Active 2021 Not Available [facility] 3 04:52:50 Problem Notes None recorded. Procedures Surgical History Date Name Laterality Status Provider Name and Address Organization Details Recorded Time 01/04/20 Knee Replacement completed Not Available [facility] 01/03/2023 04:43:13 09/27/20 Most Recent Bone Density completed Not Available [facility] 01/03/2023 04:43:09 09/21/20 20 Date of Last Colonoscopy completed Not Available [facility] 01/03/2023 04:43:09 09/21/20 20 colonoscopy completed Not Available [facility] 01/03/2023 04:43:13 Knee Surgery completed Not Available [facility] 01/03/2023 04:43:13 Tonsillectomy completed Not Available [facility] 01/03/2023 04:43:13 Cholecystectomy completed Not Available [facility] 01/03/2023 04:43:13 Sinus Surgery completed Not Available [facility] 01/03/2023 04:43:13 Imaging Results Imaging Date Name Status LastModified by Organiz ation Details LastModified Time 09/13/2022 holter monitor completed MIGRATION.030 [id number] Information not available 01/03/2023 05:06:32 07/20/2022 XR, chest, 2 view completed [id number] [facility] [address] [place] [address], [address], 01/03/2023 05:06:32 08/21/2022 holter monitor completed [id number].[id number] 026 [facility] [address] [facility] [address], [place], [address], 01/03/2023 05:06:32 08/04/2022 US, echocardiogram , transthoracic, complete, w/ color flow completed [id number] [facility] [address], [place], [address], 01/03/2023 05:06:32 11/06/2023 MAMMO, screening, digital, bilateral completed [email or web address] [place] [address] [address], [place], [address], 11/13/2023 12:16:10 Procedure Notes None recorded. Medical Equipment None Reported. Allergies Allergen ID Allergen Name Allergen Category Reaction Reaction Severity Criticality Documentation Date Start Date Code Code System Note Provider Name and Address Organization Details Recorded Time 8636 Substance with sulfonami de structure and antibacte rial mechanism of action (substanc e) medicatio n Not available Not available Not available 01/03/2023 77480 8003 SNOMED Not Available [facility] 3 05:06:02 8638 Product containin g penicilli n and antibioti c (product) medicatio n Not available Not available Not available 01/03/2023 44489 05 SNOMED Not Available [facility] 3 05:06:02 8639 codeine medicatio n Not available Not available Not available 01/03/2023 2670 RxNorm Not Available [facility] 3 05:06:02 Medications Name Sig Start Date Stop Date Status Note LastModified by Organization Details LastModified Time buspirone 5 mg tablet Take 1 tablet twice a day by oral route. 03/04 completed Not Available Not Available Not Available doxycycline hyclate 100 mg capsule TAKE 1 CAPSULE BY MOUTH ONCE DAILY 10/25 completed Not Available Not Available Not Available clindamycin HCl 300 mg capsule 04/01 completed Not Available Not Available Not Available cetirizine 10 mg tablet TAKE 1 TABLET BY MOUTH ONCE DAILY active Not Available Not Available No t Available benzonatate 200 mg capsule Take 1 capsule 3 times a day by oral route. active Not Available Not Available No t Available diltiazem CD 240 mg capsule,ext ended release 24 hr TAKE 1 CAPSULE BY MOUTH ONCE DAILY active Not Available Not Available No t Available meloxicam 15 mg tablet TAKE 1 TABLET BY MOUTH ONCE DAILY FOR 30 DAYS 04/25 completed Not Available Not Available Not Available ondansetron HCl 4 mg tablet TAKE 1 TABLET BY MOUTH WITH PAIN MEDICATIO N, THEN 1 TABLET EVERY 4 HOURS NEEDED FOR NAUSEA 03/28 completed Not Available Not Available Not Available prednisone 20 mg tablet take 3 tabs po daily x 2 days, then take 2 tabs po daily x 2 days, then take 1 tab po daily x 2 days, then take 1/2 tab po daily x 2 days. active Not Available Not Available No t Available carbidopa ER 50 mg-levodopa 200 mg tablet,exte nded release TAKE 1 TABLET BY MOUTH ONCE DAILY AT BEDTIME active Not Available Not Available No t Available sertraline 100 mg tablet TAKE 2 TABLETS BY MOUTH ONCE DAILY active Not Available Not Available No t Available prednisone 5 mg tablet TAKE 1 TABLET BY MOUTH ONCE DAILY IN THE MORNING 10/25 completed Not Available Not Available Not Available Zithromax Z-Brayan 250 mg tablet TAKE 2 TABLETS (500 MG) BY ORAL ROUTE ONCE DAILY FOR 1 DAY THEN 1 TABLET (250 MG) BY ORAL ROUTE ONCE DAILY FOR 4 DAYS 07/13 completed Not Available Not Available Not Available meclizine 12.5 mg tablet 03/15 completed Not Available Not Available Not Available amlodipine 2.5 mg tablet Take 1 tablet every day by oral route in the evening. active Not Available Not Available No t Available amlodipine 5 mg tablet TAKE 1 TABLET BY MOUTH ONCE DAILY IN THE EVENING 08/15 completed Not Available Not Available Not Available hydrocortis one-acetic acid 1 %-2 % ear drops INSTILL 2 DROPS INTO Left ear BY OTIC ROUTE 4 TIMES PER DAY x 7 days 07/18 completed Not Available Not Available Not Available hydrocodone 7.5 mg-acetamin ophen 325 mg tablet TAKE 1 TABLET BY MOUTH EVERY 6 HOURS NEEDED FOR 7 DAYS active Not Available Not Available No t Available cephalexin 500 mg capsule TAKE 1 CAPSULE BY MOUTH EVERY 6 HOURS FOR 7 DAYS active Not Available Not Available No t Available levothyroxi ne 125 mcg tablet Take 1 tablet every day by oral route for 90 days. 03/15 completed Not Available Not Available Not Available prednisone 50 mg tablet Take 1 tablet every day by oral route. 12/15 completed Not Available Not Available Not Available omeprazole 20 mg capsule,del ayed release TAKE 1 CAPSULE BY MOUTH ONCE DAILY active Not Available Not Available No t Available hydrochloro thiazide 25 mg tablet TAKE 1 TABLET BY MOUTH ONCE DAILY active Not Available Not Available No t Available ergocalcife rol (vitamin D2) 1,250 mcg (50,000 unit) capsule 09/29 completed Not Available Not Available Not Available levofloxaci n 500 mg tablet Take 1 tablet every 24 hours by oral route. active Not Available Not Available No t Available methylpredn isolone 4 mg tablets in a dose pack TAKE BY MOUTH DIRECTED ON INSIDE OF PACKAGE 03/27 completed Not Available Not Available Not Available propranolol 20 mg tablet TAKE 1 TABLET BY MOUTH TWICE DAILY 04/25 completed Not Available Not Available Not Available carbidopa 25 mg-levodopa 100 mg tablet TAKE 2 TABLETS BY MOUTH THREE TIMES DAILY active Not Available Not Available No t Available hydromorpho ne 4 mg tablet TK 1 T PO Q 6 H PRN active Not Available Not Available No t Available SF 5000 Plus 1.1 % dental cream USE TO BRUSH TEETH ONCE DAILY AT BEDTIME active Not Available Not Available No t Available metformin ER 500 mg tablet,exte nded release 24 hr Take 1 tablet every day by oral route at dinner for 90 days. 04/25 completed Not Available Not Available Not Available metronidazo le 0.75 % topical gel APPLY TO FACE TWICE DAILY. 10/25 completed Not Available Not Available Not Available doxycycline hyclate 100 mg tablet TAKE 1 TABLET BY MOUTH TWICE DAILY WITH MEALS 10/25 completed Not Available Not Available Not Available spironolact one 50 mg tablet Take 2 tablets every day by oral route in the morning for 90 days. active Not Available Not Available No t Available levothyroxi ne 112 mcg tablet 04/01 completed Not Available Not Available Not Available neomycin-po lymyxin-hyd rocort 3.5 mg-10,000 unit/mL-1 % ear drops,susp INSTILL 4 DROPS INTO AFFECTED EAR(S) BY OTIC ROUTE 3 TIMES PER DAY active Not Available Not Available No t Available rosuvastati n 20 mg tablet TAKE 1 TABLET BY MOUTH ONCE DAILY IN THE EVENING active Not Available Not Available No t Available omega-3 acid ethyl esters 1 gram capsule TAKE 2 CAPSULES BY MOUTH TWICE DAILY BEFORE MEAL(S) active Not Available Not Available No t Available rasagiline 1 mg tablet TAKE 1 TABLET BY MOUTH ONCE DAILY FOR 90 DAYS active Not Available Not Available No t Available hydrochloro thiazide 12.5 mg tablet Take 1 tablet every day by oral route in the morning for 90 days. 08/10 completed Not Available Not Available Not Available oxycodone 10 mg tablet TAKE 1 TO 2 TABLETS BY MOUTH EVERY 8 HOURS NEEDED FOR PAIN . DECREASE TO 1 TAB DAILY SOON POSSIBLE. 03/28 completed Not Available Not Available Not Available Unithroid 137 mcg tablet Take 1 tablet every day by oral route in the morning. 2022 active Not Available Not Available Not Avai lable Nucynta 75 mg tablet TAKE 1 TABLET BY MOUTH EVERY 6 HOURS NEEDED FOR PAIN FOR 7 DAYS 04/30 /2021 completed Not Available Not Available Not Available Bio-D-Mulsi on Forte 50 mcg/drop (2,000 unit/drop) oral drops TAKES 2 DROPLETTS PO DAILY 03/28 completed Not Available Not Available Not Available Bio-D-Mulsi on Forte 03/28 completed Not Available Not Available Not Available Zyrtec 10 mg capsule Take 1 capsule every day by oral route. 09/27 completed Not Available Not Available Not Available Tirosint 137 mcg capsule TAKE 1 CAPSULE BY MOUTH ONCE DAILY IN THE EVENING active Not Available Not Available No t Available Suprep Bowel Prep Kit 17.5 gram-3.13 gram-1.6 gram oral solution USE DIRECTED active Not Available Not Available No t Available Duexis 800 mg-26.6 mg tablet TAKE 1 TABLET BY MOUTH THREE TIMES DAILY 03/28 completed Not Available Not Available Not Available Vascepa 1 gram capsule Take 2 capsules twice a day by oral route before meals for 90 days. active Not Available Not Available No t Available Shingrix (PF) 50 mcg/0.5 mL intramuscul ar suspension, kit 04/01 completed Not Available Not Available Not Available Fluarix Quad (PF) 60 mcg (15 mcg x 4)/0.5 mL IM syringe 04/01 completed Not Available Not Available Not Available Fluzone Quad (PF) 60 mcg (15 mcg x 4)/0.5 mL IM syringe PHARMACIS T ADMINISTE RED IMMUNIZAT ION ADMINISTE RED AT TIME OF DISPENSIN G active Not Available Not Available No t Available Flublok Quad (PF) 180 mcg (45 mcg x 4)/0.5 mL IM syringe PHARMACIS T ADMINISTE RED IMMUNIZAT ION ADMINISTE RED AT TIME OF DISPENSIN G active Not Available Not Available No t Available Paxlovid 300 mg (150 mg x 2)-100 mg tablets in a dose pack 300 mg nirmatrel vir (two 150 mg tablets) with 100 mg ritonavir (one 100 mg tablet) with all three tablets taken together orally twice daily for 5 days active Not Available Not Available No t Available Vitals Date Recorded Body mass index (BMI) Body height Oxygen saturation Oxygen saturation in Arterial blood by Pulse oximetry Heart rate Body temperature Body weight Systolic blood pressure Diastolic blood pressure Provider Name and Address Organization Details Last Updated DateTime 2 41.3 kg/m2 170.18 cm 96 % 96 % 69 /min 97.4 [degF] 567503. 39 g 140 mm[Hg] 90 mm[Hg] Not Available [facility] 3 04:49:55 Date Recorded Body height Oxygen saturation Oxygen saturation in Arterial blood by Pulse oximetry Heart rate Respiratory rate Body temperature Systolic blood pressure Diastolic blood pressure Provider Name and Address Organization Details Last Updated DateTime 2 170.18 cm 96 % 96 % 69 /min 16 /min 97.4 [degF] 132 mm[Hg] 88 mm[Hg] Not Available [facility] 3 04:49:54 Date Recorded Body height Oxygen saturation Oxygen saturation in Arterial blood by Pulse oximetry Heart rate Body temperature Systolic blood pressure Diastolic blood pressure Provider Name and Address Organization Details Last Updated DateTime 2 170.18 cm 98 % 98 % 68 /min 96.9 [degF] 126 mm[Hg] 86 mm[Hg] Not Available [facility] 3 04:49:54 Date Recorded Body height Body temperature Body mass index (BMI) Body weight Respiratory rate Oxygen saturation Oxygen saturation in Arterial blood by Pulse oximetry Heart rate Systolic blood pressure Diastolic blood pressure Provider Name and Address Organization Details Last Updated DateTime 3 170.18 cm 96.5 [degF] 41 kg/m2 048617. 2 g 16 /min 97 % 97 % 63 /min 122 mm[Hg] 80 mm[Hg] JONATAN Cash [facility] [employer] [facility] 3 12:30:19 Date Recorded Systolic blood pressure Diastolic blood pressure Provider Name and Address Organization Details Last Updated DateTime 04/25/2023 110 mm[Hg] 80 mm[Hg] KARLOS Sevilla [address] [place] [address], [place], [address], [facility] 04/25/2023 12:54:07 Date Recorded Body height Body mass index (BMI) Body weight Respiratory rate Heart rate Systolic blood pressure Diastolic blood pressure Provider Name and Address Organization Details Last Updated DateTime 3 170.18 cm 40.7 kg/m2 124226. 02 g 16 /min 69 /min 120 mm[Hg] 72 mm[Hg] JONATAN Cash [place] [facility] 3 11:00:29 Social History Question Answer Notes LastModified by Organizat ion Details LastModified Time Tobacco Smoking Status Never Smoker Not Available [facility] 01/03/2023 04:41:59 Do You Have An Advance Directive? No [id number] Information not available 01/03/2023 What Is Your Level Of Alcohol Consumption? None [id number] Information not available 01/03/2023 What Is Your Level Of Caffeine Consumption? Occasional [id number] Information not available 01/03/2023 How Much Tobacco Do You Chew? None [id number] Information not available 01/03/2023 In The 14 Days Before Symptom Onset, Have You Had Close Contact With A Laboratory-confir med COVID-19 While That Case Was Ill? No [id number] Information not available 01/03/2023 In The 14 Days Before Symptom Onset, Have You Had Close Contact With A Person Who Is Under Investigation For COVID-19 While That Person Was Ill? No [id number] Information not available 01/03/2023 What Type Of Diet Are You Following? REGULAR [id number] Information not available 01/03/2023 Which Illicit Or Recreational Drugs Have You Used? None [id number] Information not available 01/03/2023 Do You Or Have You Ever Used E-cigarettes Or Vape? Never Used Electronic Cigarettes [id number] Information not available 01/03/2023 Have There Been Any Changes To Your Family Or Social Situation? No [id number] Information not available 01/03/2023 Do You Use Insect Repellent Routinely? No [id number] Information not available 01/03/2023 Do You Have A Medical Power Of Plant Taxonomist? No [id number].[id number] 4545 Information not available 01/03/2023 What Is Your Relationship Status? [id number] Information not available 01/03/2023 Do You Use Your Seat Belt Or Car Seat Routinely? Yes [id number].[id number] Information not available 01/03/2023 Do You Have Smoke And Carbon Monoxide Detectors In Your Home? Yes [id number].[id number] 0006 Information not available 01/03/2023 Do You Or Have You Ever Used Smokeless Tobacco? Never Used Smokeless Tobacco [id number].[id number] Information not available 01/03/2023 How Much Tobacco Do You Smoke? No [id number].[id number] Information not available 01/03/2023 Do You Use Any Illicit Or Recreational Drugs? No [id number].[id number] 1598 Information not available 01/03/2023 Do You Use Sunscreen Routinely? Yes [id number].[id number] Information not available 01/03/2023 Have You Recently Traveled Abroad? No MIGRATION.751979 6930 Information not available 01/03/2023 Do You Have Any Dietary Restrictions? No MIGRATION.[id number] 6295 Information not available 01/03/2023 Do You Or Have You Ever Used Any Other Forms Of Tobacco Or Nicotine? No MIGRATION.[id number] Information not available 01/03/2023 Sex: Female Functional Status Question Answer Note LastModified by [employer] ion Details LastModified Time What is your exercise level? Moderate [id number] Information not available 01/03/2023 Mental Status None recorded. Family History Relationship Description Onset Age of this Age Resolved Age Notes LastModified by Organization Details LastModified Time Father Hypothyroidi sm [email or web address] Not available 2022 10:53:03 Father Chronic obstructive pulmonary disease [email or web address] Not available 2022 10:53:03 Father Hypertensive disorder [id number] Not available 01/03/2023 04:43:21 Father Heart disease [id number] Not available 01/03/2023 04:43:21 Mother Hypothyroidi sm [email or web address] Not available 2022 10:53:03 Mother Hypertensive disorder [id number] Not available 01/03/2023 04:43:21 Paternal Grandfather Diabetes mellitus [id number] Not available 01/03/2023 04:43:21 Medical History Condition Response THYROID DISEASE Y HEADACHES/MIGRAINES Y ANXIETY DISORDER Y DIZZINESS Y SLEEP DISORDER Y HAVE YOU BEEN HOSPITALIZED OR SEEN IN [facility] IN THE PAST YEAR ? Y HYPERTENSION Y HIGH CHOLESTEROL / HYPERLIPIDEMIA Y Gynecological History Statement/Question Response Date of Last Mammogram 09/23/2020 Current Control Method Menopause Date of Last Colonoscopy 09/21/2020 Most Recent Bone Density 09/27/2020 Sexually Active? Y Obstetrics History GPAL:G 2 P 0 0 0 2 Type Value Living 2 Total 2 Immunizations Vaccine Type Date Status Note Provider Nam e and Address Organization Details Recorded Time COVID-19, mRNA, LNP-S, PF, 100 mcg/0.5mL dose or 50 mcg/0.25mL dose 3 completed Gena Reilly RN null, [place] 08/21/2023 09:20:46 influenza, unspecified formulation 3 completed Soledad Andujar MA null, [place] 08/21/2023 12:48:17 Influenza, split virus, quadrivalent, preservative 9 completed Not Available [facility] 01/03/2023 05:05:52 Influenza, split virus, quadrivalent, preservative 0 completed Not Available [facility] 01/03/2023 05:05:52 Past Encounters Encounter ID Performer Location Encounter Start Date Encounter Closed Date Diagnosis/Indication Diagnosis SNOMED-CT Code Diagnosis ICD10 Code Diagnosis Note [id number] [facility] [address] [place] [address] 03/04/2021 00:00:00 03/04/2021 11:36:08 [id number] [facility] [address] [place] [address] 03/22/2021 00:00:00 04/01/2021 19:08:50 [id number] [facility] [address] [place] [address] 08/23/2021 00:00:00 08/23/2021 12:38:33 [id number] [facility] [address] [place] [address] 09/27/2021 00:00:00 10/02/2021 14:09:09 [id number] [facility] [address] [place] [address] 12/30/2021 00:00:00 12/30/2021 16:20:09 [id number] [facility] [address] [place] [address] 03/13/2022 00:00:00 03/13/2022 11:26:11 [id number] [facility] [address] [place] [address] 03/28/2022 00:00:00 04/03/2022 16:18:48 [id number] [facility] [address] [place] [address] 07/18/2022 00:00:00 08/03/2022 20:10:40 [id number] [facility] [place] [address] [place] [address] 08/15/2022 00:00:00 09/03/2022 14:51:28 [id number] [facility] [address] [place] [address] 09/26/2022 00:00:00 10/03/2022 21:16:08 [id number] [facility] [address] [place] [address] 10/19/2022 00:00:00 10/19/2022 13:39:20 [id number] KARLOS Sevilla [facility] [address] [place] [address] 04/25/2023 12:21:43 04/25/2023 12:57:10 Adult health examination [id number] Z00.01 annual wellness completed Hyperlipidemia 08508859 E78.5 stable on crestor 20mg daily. Mixed anxi ety and depressive disorder 943732737 F41.8 stable on sertraline 200mg daily. Obstructiv e sleep apnea syndrome 93171566 G47.33 stable on cpap Hypothyroi dism due to Stephanie's thyroiditis 586719279 E06.3 on Tirosint,. follows with Endo Benign ess ential hypertension 1162548 I10 stable on medication s Parkinson's disease 4904 9000 G20 stable on recent adjustment s by Neurology on her carbidopa levodopa Long-term drug therapy 020751573 Z79.899 CBC needed on next lab draw Gastroesop hageal reflux disease without esophagitis 136239889 K21.9 stable on PPI therapy Diastolic dysfunction 35 42829 I51.9 on Diltiazem CD 240mg daily. [id number] KARLOS Sevilla [facility] [place] [address] [place] [address] 10/25/2023 10:52:31 10/25/2023 11:29:36 Hyperlipidemia 96822366 E78.5 stable on crestor 20mg daily. Mixed anxi ety and depressive disorder 501325975 F41.8 stable on sertraline 200mg daily. 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 follows with Endo in past. this office will take over management since her Endocrine left. due for TFTs Benign ess ential hypertension 7152979 I10 stable on medication s Parkinson's disease 4904 9000 G20.A1 stable on recent adjustment s by Neurology on her carbidopa levodopa Diastolic dysfunction 35 82961 I51.9 on Diltiazem CD 240mg daily. Gastroesop hageal reflux disease without esophagitis 635519185 K21.9 stable on PPI therapy Long-term drug therapy 000896116 Z79.899 cmp lab due Impaired f asting glycemia 436981879 R73.01 routine a1c and insulin Mixed hyperlipidemia 267 822782 E78.2 fasting lipids due and refill omega 3 fish oil Health Concerns Section Related Observation LastModified by Organization Detai ls LastModified Time None Recorded Concern Status LastModified by Organization Details LastModified Time None Recorded Advance Directives Directive N: Payers Encounter Date Sequence Insurance Name Policy Number Policy Haynes Covered Member ID Haynes Member ID Guarantor Name 04/25/2023 1 [employer] [id number] Jeff Mosley [id number] Jaimie Mosley 10/25/2023 1 [employer] [id number] Jeff Mosley [id number] Jaimie Dimitri Notes Date Note Type Note Provider Name and Address Organization Details Recorded Time 08/15/20 text/ht ml HypertensionReported bypatient.Duration:has noted for years; getting worse over the past week Onset/Timing:worse Alleviating Factors:medication Self Care:under emotional stress Associated Symptoms:no fatigue; no decline in exercise capacity; no snoring;shortness of breath;palpitationsNotes:Pt is here for a f/u. Not Available [facility] [employer] [facility] 09/03/2022 14:51:28 09/26/20 text/ht ml Anxiety/DepressionReported bypatient.Severity:denies suicidal ideations; able to maintain relationships; does not interfere with activities of daily living Context:major life stressors;family problems(son) Modifying Factors:medications as directed Associated Symptoms:denies homicidal ideations; no significant weight gain; no significant weight loss; no visual/auditory hallucinations; no delusions; no shortness of breath; mood good; no anxiety; no crying spells; no panic; no isolation; sleeping well; appetite good; energy good; no apathy; maintaining functionality HyperlipidemiaReported bypatient.Duration:chronic Control:usually well controlled; improving; at goal Compliance:compliant; exercises;noncompliant with diet Complications:no coronary artery disease; no peripheral artery disease; no cardiovascular disease Risk Factors:hypertensionHypertension Reported bypatient.Duration:has noted for years Onset/Timing:better Alleviating Factors:medication Self Care:not under emotional stress Associated Symptoms:no shortness of breath; no fatigue; no palpitations; no decline in exercise capacity; no snoringHypothyroidismReported bypatient.Severity:moderate Onset/Timing:better Context/Risk:no history of head or neck radiation during childhood; no excess iron exposure;history of hypothyroidism Modifying Factors:medication Exercisegets exercise; walks 7 times per week; uses exercose bike 7 time per week Associated Symptoms:no cold intolerance; no weight loss; no weight gain; no double vision; no dry eyes; no hoarseness; no difficulty swallowing; no neck masses; no deepening of the voice; no fast heart rate; no increased blood pressure; no palpitations; no chest pain; no chest tightess or pressure; no constipation; no diarrhea; no vomiting; no decreased appetite; no loose stools; no irregular menstrual periods; no excessive sweating; no joint pain; no numbness; no tingling of the hands or feet; no dry skin; no tremor; no nervousness; no anxiety; no depression; no fatigue; no sleep difficulties; no skin changes; no hair changes;heat intoleranceObstructive Sleep Apnea F/UReported bypatient.Quality:no loud snoring; no gasping for air; no witnessed apnea; no hyponasal speech; no frequent breathing through the mouth Onset/Timing:resolved; resolved with cpap Duration:resolved; resolved with cpap Severity:does not limit daily activities; no frequent sore throats resulting in excess missed days from school / work per year; no difficulty getting going in the morning; no awakening in the middle of the night with sore throat Location:no enlarged tonsils; no nasal passage blockage; no throat pain; no feeling of tightness in throat; no dryness of mouth; no chest congestion Context:no lack of adequate sleep; no shift work; not currently taking medication to help sleep; no recent weight gain; no recent upper respiratory infection; no recent sick contacts; not worse with environmental exposure; not worse with seasonal allergen exposure; no hypertension; normal sleep hours Alleviating factors:relief with CPAP Aggravating factors:not worse during an upper respiratory infection (a cold); not worse when allergies are active Associated Symptoms:no morning headache; no awakening at night short of breath; no sweating heavily at night; no excessive sleepiness during the day; no suddenly falling asleep during the day; no napping; no impaired work performace; no nasal congestion Not Available [facility] 10/03/2022 21:16:08 04/25/20 23 text/ht ml Anxiety/DepressionReported bypatient.Quality:doesnt matter time of day Severity:denies suicidal ideations; able to maintain relationships; does not interfere with activities of daily living Duration:symptoms lasting over 2 weeks Onset/Timing:still present Context:no major life stressors Associated Symptoms:denies homicidal ideations; no significant weight gain; no significant weight loss; no visual/auditory hallucinations; no delusions; no shortness of breathHyperlipidemiaReported bypatient.Duration:chronic Control:usually well controlled Compliance:compliant; exercises;noncompliant with diet Complications:no coronary artery disease; no peripheral artery disease; no cardiovascular disease Risk Factors:hypertensionHypertension Reported bypatient.Duration:has noted for years Onset/Timing:better Alleviating Factors:medication Associated Symptoms:no shortness of breath; no fatigue; no palpitations; no decline in exercise capacity; no snoringHypothyroidismReported bypatient.Quality:not changing Duration:constant Onset/Timing:still present Context/Risk:normal thyroid levels; no history of head or neck radiation during childhood; no history of thyroid disease; no history of hyperthyroidism; no excess iron exposure;history of hypothyroidism;female gender Modifying Factors:medication Exercisegets exercise Associated Symptoms:no cold intolerance; no heat intolerance; no weight loss; no weight gain; no double vision; no dry eyes; no hoarseness; no difficulty swallowing; no neck masses; no deepening of the voice; no fast heart rate; no increased blood pressure; no palpitations; no chest pain; no chest tightess or pressure; no constipation; no diarrhea; no vomiting; no decreased appetite; no loose stools; no irregular menstrual periods; no excessive sweating; no joint pain; no numbness; no tingling of the hands or feet; no dry skin; no tremor; no nervousness; no anxiety; no depression; no fatigue; no sleep difficulties; no skin changes; no hair changesObstructive Sleep Apnea F/UReported bypatient.Quality:no loud snoring; no gasping for air; no witnessed apnea; no hyponasal speech; no frequent breathing through the mouth Onset/Timing:chronic Duration:continuous Severity:does not limit daily activities; no frequent sore throats resulting in excess missed days from school / work per year; no difficulty getting going in the morning; no awakening in the middle of the night with sore throat Location:no enlarged tonsils; no nasal passage blockage; no throat pain; no feeling of tightness in throat; no chest congestion;dryness of mouth Context:no lack of adequate sleep; no shift work; not currently taking medication to help sleep; no recent weight gain; no recent upper respiratory infection; no recent sick contacts; not worse with environmental exposure; not worse with seasonal allergen exposure; no hypertension; normal sleep hours Alleviating factors:relief with CPAP Aggravating factors:not worse during an upper respiratory infection (a cold); not worse when allergies are active Associated Symptoms:no morning headache; no awakening at night short of breath; no sweating heavily at night; no excessive sleepiness during the day; no suddenly falling asleep during the day; no napping; no impaired work performace; no nasal congestion Wellness KARLOS Sevilla [address] [facility], [facility] [address], [place], [address], [place] [facility] 05/04/2023 19:04:34 10/25/20 23 text/ht ml Anxiety/DepressionReported bypatient.Quality:doesnt matter time of day Severity:denies suicidal ideations; able to maintain relationships; does not interfere with activities of daily living Duration:symptoms lasting over 2 weeks Onset/Timing:still present Context:no major life stressors Associated Symptoms:denies homicidal ideations; no significant weight gain; no significant weight loss; no visual/auditory hallucinations; no delusions; no shortness of breathHyperlipidemiaReported bypatient.Duration:chronic Control:usually well controlled Compliance:compliant; exercises;noncompliant with diet Complications:no coronary artery disease; no peripheral artery disease; no cardiovascular disease Risk Factors:hypertensionHypertension Reported bypatient.Duration:has noted for years Onset/Timing:better Alleviating Factors:medication Associated Symptoms:no shortness of breath; no fatigue; no palpitations; no decline in exercise capacity; no snoringHypothyroidismReported bypatient.Quality:not changing Duration:constant Onset/Timing:still present Context/Risk:normal thyroid levels; no history of head or neck radiation during childhood; no history of thyroid disease; no history of hyperthyroidism; no excess iron exposure;history of hypothyroidism;female gender Modifying Factors:medication Exercisegets exercise Associated Symptoms:no cold intolerance; no heat intolerance; no weight loss; no weight gain; no double vision; no dry eyes; no hoarseness; no difficulty swallowing; no neck masses; no deepening of the voice; no fast heart rate; no increased blood pressure; no palpitations; no chest pain; no chest tightess or pressure; no constipation; no diarrhea; no vomiting; no decreased appetite; no loose stools; no irregular menstrual periods; no excessive sweating; no joint pain; no numbness; no tingling of the hands or feet; no dry skin; no tremor; no nervousness; no anxiety; no depression; no fatigue; no sleep difficulties; no skin changes; no hair changesObstructive Sleep Apnea F/UReported bypatient.Quality:no loud snoring; no gasping for air; no witnessed apnea; no hyponasal speech; no frequent breathing through the mouth Onset/Timing:chronic Duration:continuous Severity:does not limit daily activities; no frequent sore throats resulting in excess missed days from school / work per year; no difficulty getting going in the morning; no awakening in the middle of the night with sore throat Location:no enlarged tonsils; no nasal passage blockage; no throat pain; no feeling of tightness in throat; no chest congestion;dryness of mouth Context:no lack of adequate sleep; no shift work; not currently taking medication to help sleep; no recent weight gain; no recent upper respiratory infection; no recent sick contacts; not worse with environmental exposure; not worse with seasonal allergen exposure; no hypertension; normal sleep hours Alleviating factors:relief with CPAP Aggravating factors:not worse during an upper respiratory infection (a cold); not worse when allergies are active Associated Symptoms:no morning headache; no awakening at night short of breath; no sweating heavily at night; no excessive sleepiness during the day; no suddenly falling asleep during the day; no napping; no impaired work performace; no nasal congestion KARLOS Sevilla [address] [place] [address], [id number], [facility] 10/30/2023 17:45:09 OBGyn Episode No OBEpisode recorded.
--- OUTSIDE RECORDS SUMMARY | 2024-11-27 18:48 | XMS_ITS | Data Portability ---
Author Organization [facility] Address [address] [place] [address] Care Team Providers Care Financial Supervisor Name Role Phone CHRISTIANO NICHOLS Primary Care Provider Unavailab le Assessment Encounter Date Assessment Date Assessment LastModified by Organization Details LastModified Time 04/22/2024 04/22/2024 Mammogram november 2023 all clear colonoscopy due in 2024, Dr. Reyna Eye exam UTD. [facility] Dental exam: UTD: Thea Anvik dental Pap smear Oct 2023, Dr. Ritesh Not available 04/22/2024 11:38:38 10/16/2024 10/16/2024 Mammogram november 2023 all clear colonoscopy due in 2024, Dr. Reyna Eye exam UTD. [facility] Dental exam: UTD: Thea Anvik dental Pap smear Oct 2023, Dr. Ritesh Not available 10/16/2024 11:35:59 Plan of Treatment Reminders Order Date Submit Date Provider Last Modified By Organization Details Last Modified Time Details Appointments ANY 15 2024 10:00A M KARLOS Sevilla Not available Not available Not available Lab vitamin D, 25-hydro xy, total, serum 2023 024 [employer] [facility], [address], [place], [address], 05/16/2024 15:52:57 HbA1c (hemoglo bin A1c), blood 2023 024 [employer] [facility], [address], [place], [address], 05/16/2024 15:52:57 HbA1c (hemoglo bin A1c), blood 2023 024 [employer] [facility], [address], [address], [place], [address], 08/05/2024 10:25:33 vitamin B12 + folate, serum or blood 2023 024 [employer] [facility], [address], [address], [place], [address], 05/16/2024 15:52:57 CBC w/ auto diff 2023 024 [employer] [facility], [address], [place], [address], 05/16/2024 15:52:57 CMP, serum or plasma 2023 024 [employer] [facility], [address], [place], [address], 05/16/2024 15:52:57 CMP, serum or plasma 2023 024 [employer] [facility], [address], [place], [address], 09/15/2024 08:52:22 TSH + free T4, serum 2023 024 [facility], [address], [place], [address], 05/16/2024 15:52:57 TSH + free T4, serum 2023 024 [employer] [facility], [address], [place], [address], 09/15/2024 08:52:22 lipid panel, serum 2023 024 [employer] [facility], [address], [place], [address], 05/16/2024 15:52:56 lipid panel, serum 2023 024 ÁNGEL [facility], [address], [address], [place], [address], 09/15/2024 08:52:22 vitamin D, 25-hydro xy, total, serum 2023 025 [email or web address] [facility], [address], [address] [place], [place], [address], 10/16/2024 11:37:39 HbA1c (hemoglo bin A1c), blood 2023 025 [email or web address], [address], [address] [place], [place], [address], 10/16/2024 11:37:39 vitamin B12 + folate, serum or blood 2023 025 [email or web address], [address], [address], [place], [address], 10/16/2024 11:37:39 CBC w/ auto diff 2023 025 [email or web address], [address], [place], [place], [address], 10/16/2024 11:37:39 CMP, serum or plasma 2023 025 [email or web address], [address], [address] [place], [place], [address], 10/16/2024 11:37:39 lipid panel, serum 2023 025 [email or web address], [address], [address] [place], [place], [address], 10/16/2024 11:37:39 TSH + free T4, serum 2023 025 [email or web address] [facility], [address], [place], [address], 10/16/2024 11:37:39 Referral None recorded . Procedures None recorded . Surgeries None recorded . Imaging None recorded . Medication Orders Linzess 145 mcg capsule 2023 024 [facility] [address] [place], [address], 10/16/2024 11:45:58 Patient TargetsNo targets recorded. Patient Instructions Encounter Date Encounter Id Patient Instructions Last Modified By Organization Details Last Modified Time 04/22/2024 [id number] A healthy lifestyle: care instructions Not available 05/09/2024 12:40:53 10/16/2024 [id number] A healthy lifestyle: care instructions Not available 10/16/2024 11:37:39 Reason for Referral None Reported. Results Created Date Observation Date Name Description Value Unit Range Abnormal Flag Note LastModifiedBy Organization Detail LastModifiedTime 11/04/20 24 09/21/2020 colon oscop y scree frank (PROC ) No observ ation record ed. [email or web address] Not Available 2024 15:42:20 11/04/20 24 09/21/2020 colon oscop y scree frank (PROC ) No observ ation record ed. [email or web address] Not Available 2024 15:42:33 11/04/20 24 09/23/2020 MAMMO , scree frank, digit al, bilat eral No observ ation record ed. BARCODE Not Available 2023 18:02:41 11/04/20 24 09/27/2020 DEXA No observ ation record ed. BARCODE Not Available 2023 18:02:41 11/25/19 25 11/24/2024 XR, shoul diane No observ ation record ed. [email or web address] [facility] [address], [place], [address], 11/25/2024 09:28:26 Result Notes None recorded. Problems Name Problem SNOMED Code Status Onset Date Resolution Date Notes Provider Name and Address Organization Details Recorded Time Benign essential hypertension 9277177 Active 2023 KARLOS Sevilla Attn: Ubaldo schneider,[address] [facility], [place], [address], [place] [facility] 4 12:35:45 Parkinson's disease 62044386 Active 2023 KARLOS Sevilla Attn: Ubaldo schneider,[address] [facility], [place], [address], [place] [facility] 4 12:35:45 Hyperlipidemia 38154204 Active 2023 KARLOS Sevilla Attn: Ubaldo schneider,[address] [facility], [place], [address], [place] [facility] 4 12:35:46 Hypothyroidism 82017282 Active 2023 KARLOS Sevilla Attn: Ubaldo schneider,[address] [facility], [place], [address], [place] [facility] 4 12:35:48 Prediabetes 230560575 Active 2023 KARLOS Sevilla Attn: Ubaldo schneider,[address] [place], [address], [place] [facility] 4 12:35:49 Vitamin D deficiency 39391344 Active 2023 KARLOS Sevilla Attn: Ubaldo schneider,[address] [place], [address], [place] [facility] 4 12:35:50 Long-term drug therapy Active 2023 KARLOS Sevilla Attn: Ubaldo schneider,[address] [place], [address], [place] [facility] 4 12:35:51 Mixed anxiety and depressive disorder 029678405 Active 2023 KARLOS Sevilla Attn: Ubaldo schneider,[address], [place], [address], [place] [facility] 4 12:40:14 Body mass index 40+ - severely obese 338403588 Active 2023 KARLOS Sevilla Attn: Ubaldo schneider,[address] [facility], [place], [address], [place] [facility] 4 12:40:50 Obesity 858455226 Active 2023 KARLOS Sevilla Attn: Ubaldo schneider,[address] [facility], [place], [address], [place] [facility] 4 12:40:51 Chronic constipation 987091938 Active 2023 KARLOS Sevilla Attn: Ubaldo schneider,[address] [facility], [place], [address], [place] [facility] 11:46:20 Body mass index 30+ - obesity 158013657 Active 2023 KARLOS Sevilla Attn: Ubaldo schneider,[address] [facility], [place], [address], [place] [facility] 21:50:00 Problem Notes None recorded. Procedures Surgical History Date Name Laterality Status Provider Name and Address Organization Details Recorded Time Joint Replacement completed Johnna Blood MA MD - [facility] 04/22/2024 11:44:45 Knee Surgery completed Johnna Blood MA MD - [facility] 04/22/2024 11:44:50 Tonsillectomy completed ASHLEY Ward - [facility] 04/22/2024 11:44:55 Imaging Results Imaging Date Name Status [facility] Details LastModified Time 09/21/2020 colonoscopy screening (PROC) completed Information not available 11/11/2024 15:42:20 09/21/2020 colonoscopy screening (PROC) completed Information not available 11/11/2024 15:42:33 09/23/2020 MAMMO, screening, digital, bilateral completed BAR[facility] Information not available 11/04/2024 18:02:41 09/27/2020 DEXA completed [facility] Information no t available 11/04/2024 18:02:41 11/24/2024 XR, shoulder completed [email or web address] [facility] [address], [place], [address], 11/25/2024 09:28:26 Procedure Notes None recorded. Medical Equipment None Reported. Allergies Allergen ID Allergen Name Allergen Category Reaction Reaction Severity Criticality Documentation Date Start Date Code Code System Note Provider Name and Address Organization Details Recorded Time [id number] 2824e Substance with sulfonami de structure and antibacte rial mechanism of action (substanc e) medicatio n Not available Not available Not available 04/22/2024 53178 8003 SNOMED Not Available Not Available Not Available [id number] 2824e Product containin g penicilli n and antibioti c (product) medicatio n Not available Not available Not available 04/22/2024 49398 05 SNOMED Not Available Not Available Not Available [id number] 2824e codeine medicatio n Not available Not available Not available 04/22/2024 2670 RxNorm Not Available Not Available Not Available Medications Name Sig Start Date Stop Date Status Note LastModified by Organization Details LastModified Time doxycycline hyclate 100 mg capsule TAKE 1 CAPSULE BY MOUTH ONCE DAILY 04/22 completed Not Available Not Available Not Available diltiazem CD 240 mg capsule,ext ended release 24 hr one tab po daily active Not Available Not Available No t Available meloxicam 15 mg tablet TAKE 1 TABLET BY MOUTH ONCE DAILY FOR 30 DAYS 04/22 completed Not Available Not Available Not Available propranolol ER 60 mg capsule,24 hr,extended release Take 1 capsule every day by oral route for 90 days. 10/16 completed Not Available Not Available Not Available doxycycline hyclate 50 mg capsule Take 1 capsule as needed by oral route for 30 days. active Not Available Not Available No t Available carbidopa ER 50 mg-levodopa 200 mg tablet,exte nded release TAKE 1 TABLET BY MOUTH AT BEDTIME FOR 90 DAYS active Not Available Not Available No t Available sertraline 100 mg tablet take 2 tabs po daily active Not Available Not Available No t Available prednisone 5 mg tablet TAKE 1 TABLET BY MOUTH ONCE DAILY IN THE MORNING 04/22 completed Not Available Not Available Not Available omeprazole 20 mg capsule,del ayed release TAKE 1 CAPSULE BY MOUTH ONCE DAILY 10/16 completed Not Available Not Available Not Available hydrochloro thiazide 25 mg tablet TAKE 1 TABLET BY MOUTH EVERY DAY active Not Available Not Available No t Available propranolol 20 mg tablet TAKE 1 TABLET BY MOUTH TWICE DAILY 04/22 completed Not Available Not Available Not Available carbidopa 25 mg-levodopa 100 mg tablet TAKE 2 TABLETS BY MOUTH THREE TIMES DAILY active Not Available Not Available No t Available metronidazo le 0.75 % topical gel APPLY TO FACE TWICE DAILY. active Not Available Not Available No t Available doxycycline hyclate 100 mg tablet TAKE 1 TABLET BY MOUTH TWICE DAILY WITH MEALS 04/22 completed Not Available Not Available Not Available Synthroid 137 mcg tablet one tab po daily active Not Available Not Available No t Available rosuvastati n 20 mg tablet one tab po daily active Not Available Not Available No t Available omega-3 acid ethyl esters 1 gram capsule take 2 capsules po bid active Not Available Not Available No t Available Vitamin D3 active otc Not Available Not Av ailable Not Available rasagiline 1 mg tablet TAKE 1 TABLET BY MOUTH ONCE DAILY FOR 90 DAYS 10/16 completed Not Available Not Available Not Available Tirosint 137 mcg capsule TAKE 1 CAPSULE BY MOUTH ONCE DAILY IN THE EVENING 04/22 completed Not Available Not Available Not Available Linzess 145 mcg capsule Take 1 capsule every day by oral route. active Not Available Not Available No t Available Flonase Allergy Relief 50 mcg/actuati on nasal spray,suspe nsion [place] 1 spray every day by intranasa l route. active otc Not Available Not Available No t Available Vitals Date Recorded Body height Provider Name an d Address Organization Details Last Updated DateTime 04/22/2024 170.18 cm Johnna Blood MA [facility] 2023 11:06:58 Date Recorded Respiratory rate Provider Name a nd Address Organization Details Last Updated DateTime 04/22/2024 20 /min Johnna Blood MA [facility] 04/22/2024 11:11:15 Date Recorded Body mass index (BMI) Body weight Provider Name and Address Organization Details Last Updated DateTime 04/22/2024 41.1 kg/m2 583462.92 g Johnna Blood MA MD [facility] 04/22/2024 11:11:22 Date Recorded Oxygen saturation Oxygen saturation in Arterial blood by Pulse oximetry Provider Name and Address Organization Details Last Updated DateTime 04/22/2024 98 % 98 % Johnna Blood MA MD [facility] 04/22/2024 11:15:16 Date Recorded Heart rate Provider Name an d Address Organization Details Last Updated DateTime 04/22/2024 68 /min Johnna Blood MA MD [facility] 2023 11:12:39 Date Recorded Body height Provider Name an d Address Organization Details Last Updated DateTime 10/16/2024 170.18 cm Johnna Blood MA MD [facility] 2023 10:55:04 Date Recorded Body mass index (BMI) Body weight Provider Name and Address Organization Details Last Updated DateTime 10/16/2024 33 kg/m2 14385.99 g Johnna Blood MA [facility] 10/16/2024 10:56:19 Date Recorded Respiratory rate Provider Name a nd Address Organization Details Last Updated DateTime 10/16/2024 20 /min Johnna Blood MA MD [facility] 10/16/2024 10:56:20 Date Recorded Oxygen saturation Oxygen saturation in Arterial blood by Pulse oximetry Provider Name and Address Organization Details Last Updated DateTime 10/16/2024 100 % 100 % Johnna Blood MA MD [facility] 10/16/2024 11:00:39 Date Recorded Heart rate Provider Name an d Address Organization Details Last Updated DateTime 10/16/2024 57 /min Johnna Blood MA [facility] 2023 11:00:40 Date Recorded Systolic blood pressure Diastolic blood pressure Provider Name and Address Organization Details Last Updated DateTime 04/22/2024 142 mm[Hg] 88 mm[Hg] ASHLEY Ward [facility] 04/22/2024 11:16:12 Date Recorded Systolic blood pressure Diastolic blood pressure Provider Name and Address Organization Details Last Updated DateTime 04/22/2024 132 mm[Hg] 78 mm[Hg] Johnna Blood MA [facility] 04/22/2024 11:16:24 Date Recorded Systolic blood pressure Diastolic blood pressure Provider Name and Address Organization Details Last Updated DateTime 04/22/2024 140 mm[Hg] 80 mm[Hg] KARLOS Sevilla Attn: Accounting[address] [place], [address], [facility] 04/22/2024 11:38:46 Date Recorded Systolic blood pressure Diastolic blood pressure Provider Name and Address Organization Details Last Updated DateTime 10/16/2024 130 mm[Hg] 82 mm[Hg] Johnna Blood MA [facility] 10/16/2024 11:02:00 Date Recorded Systolic blood pressure Diastolic blood pressure Provider Name and Address Organization Details Last Updated DateTime 10/16/2024 130 mm[Hg] 82 mm[Hg] KARLOS Sevilla Attn: Accounting[address] [place], [address], [facility] 10/16/2024 11:43:07 Social History Question Answer Notes LastModified by Organizat ion Details LastModified Time Tobacco Smoking Status Never Smoker Johnna Blood MA null, [facility] 04/22/2024 11:09:52 Do You Have An Advance Directive? Yes Information not available 04/22/2024 What Is Your Level Of Alcohol Consumption? None Information not available 04/22/2024 Are You Blind Or Do You Have Difficulty Seeing? No Glasses/ Reading Information not available 04/22/2024 What Is Your Level Of Caffeine Consumption? None Information not available 04/22/2024 In The 14 Days Before Symptom Onset, Have You Had Close Contact With A Laboratory-confir med COVID-19 While That Case Was Ill? No Information not available 04/22/2024 In The 14 Days Before Symptom Onset, Have You Had Close Contact With A Person Who Is Under Investigation For COVID-19 While That Person Was Ill? No Information not available 04/22/2024 Have You Been To An Area Known To Be High Risk For COVID-19? No Information not available 04/22/2024 Are You Deaf Or Do You Have Serious Difficulty Hearing? Yes Hearing Aids Information not available 04/22/2024 What Type Of Diet Are You Following? REGULAR Pt, Has Started A No Sugar Diet Information not available 04/22/2024 Are There Any Guns Present In Your Home? No Information not available 04/22/2024 What Was The Date Of Your Most Recent Tobacco Screening? 10/16/2024 Information not available 10/16/2024 Do You Use Your Seat Belt Or Car Seat Routinely? Yes Information not available 04/22/2024 Do You Have Smoke And Carbon Monoxide Detectors In Your Home? Yes Information not available 04/22/2024 Do You Use Any Illicit Or Recreational Drugs? No Information not available 04/22/2024 Do You Use Sunscreen Routinely? Yes Information not available 04/22/2024 Has Tobacco Cessation Counseling Been Provided? Yes Information not available 04/22/2024 On What Date Was Tobacco Cessation Counseling Provided? 04/22/2024 Information not available 04/22/2024 Do You Or Have You Ever Used Any Other Forms Of Tobacco Or Nicotine? No Information not available 04/22/2024 Sex: Female Functional Status Question Answer Note LastModified by Organizat ion Details LastModified Time Are you able to care for yourself? Yes Information not available 04/22/2024 What is your exercise level? Occasional Information not available 04/22/2024 Mental Status None recorded. Family History Relationship Description Onset Age of this Age Resolved Age Notes LastModified by Organization Details LastModified Time Brother Alcohol abuse [email or web address] Not available 2023 11:45:04 Brother Disorder of thyroid gland [email or web address] Not available 2023 11:45:43 Brother Hypertensive disorder [email or web address] Not available 2023 11:46:07 Sister Attention deficit hyperactivit y disorder [email or web address] Not available 04/22 11:45:11 Sister Depressive disorder [email or web address] Not available 2023 11:45:29 Sister Disorder of thyroid gland [email or web address] Not available 2023 11:45:43 Sister Hypertensive disorder tcarterma Not available 2023 11:46:07 Sister Hypercholest erolemia tcarterma Not available 2023 11:46:13 Mother Disorder of thyroid gland tcarterma Not available 2023 11:45:43 Mother Hypertensive disorder tcarterma Not available 2023 11:46:07 Father Disorder of thyroid gland tcarterma Not available 2023 11:45:43 Father Heart disease tcarterma Not available 2023 11:45:52 Father Hypertensive disorder tcarterma Not available 2023 11:46:07 Medical History Condition Response Coronary Artery Disease N Other N Atrial Fibrillation N High Blood Pressure Y Depression Y COPD N Blood Clots N Anxiety Disorder Y Muscle, Joint, or Bone Problems N Acid Reflux (GERD) Y Cancer N Stroke N High Cholesterol Y Liver Disease Y Headaches Y Kidney or Bladder Problems N Thyroid Problems Y GI Problems N Skin Problems N Anemia N Heart Attack (ID) N Diabetes N Seizures/Epilepsy N Asthma N Allergies N Hepatitis N Heart Failure N Osteoporosis N Gynecological History Statement/Question Response Menses Monthly N Current Control Method Other Obstetrics History GPAL:G 2 P 2 0 0 2 Type Value Full Term 2 Induced 0 Spontaneous 0 Premature 0 Living 2 Total 2 Immunizations Vaccine Type Date Status Note Provider Nam e and Address Organization Details Recorded Time Influenza, recombinant, quadrivalent, PF 0 [place] [facility] 08/27/2024 08:58:47 Influenza, recombinant, quadrivalent, PF 3 completed Johnna Blood [place] [facility] 08/27/2024 08:58:47 zoster recombinant 8 completed John[place] Blood [place] [facility] 08/27/2024 08:58:47 zoster recombinant 8 completed Johnna Blood [place] [facility] 08/27/2024 08:58:47 COVID-19, mRNA, LNP-S, PF, 30 mcg/0.3 mL dose 1 [place] [facility] 08/27/2024 08:58:47 COVID-19, mRNA, LNP-S, PF, 30 mcg/0.3 mL dose 1 completed Johnna Blood [place] [facility] 08/27/2024 08:58:47 COVID-19, mRNA, LNP-S, PF, 30 mcg/0.3 mL dose 1 completed John[place] Blood [place] [facility] 08/27/2024 08:58:47 COVID-19, mRNA, LNP-S, PF, 30 mcg/0.3 mL dose, serena-sucrose 2 completed John[place] Blood [place] [facility] 08/27/2024 08:58:47 COVID-19, mRNA, LNP-S, bivalent, PF, 50 mcg/0.5 mL or 25mcg/0.25 mL dose 2 completed John[place] Blood [place] [facility] 08/27/2024 08:58:47 COVID-19, mRNA, LNP-S, PF, 50 mcg/0.5 mL 3 completed John[place] Blood [place] [facility] 08/27/2024 08:58:47 Tdap 6 completed John[place] Blood [place] [facility] 08/27/2024 08:58:47 zoster live 8 completed John[place] Blood [place] [facility] 08/27/2024 08:58:47 Influenza, split virus, trivalent, preservative 8 completed John[place] Blood [place] [facility] 08/27/2024 08:58:47 Influenza, split virus, trivalent, PF 4 completed John[place] Blood [place] [facility] 08/27/2024 08:58:47 Influenza, split virus, quadrivalent, PF 2 completed John[place] Blood [place] [facility] 08/27/2024 08:58:47 Influenza, split virus, quadrivalent, PF 1 completed [place] Blood [place] [facility] 08/27/2024 08:58:47 Influenza, split virus, quadrivalent, PF 9 completed John[place] Blood [place] [facility] 08/27/2024 08:58:47 COVID-19, mRNA, LNP-S, PF, 50 mcg/0.5 mL 4 [place] [facility] 08/27/2024 09:02:04 Influenza, recombinant, trivalent, PF 4 completed [place] [facility] 08/27/2024 09:03:50 Past Encounters Encounter ID Performer Location Encounter Start Date Encounter Closed Date Diagnosis/Indication Diagnosis SNOMED-CT Code Diagnosis ICD10 Code Diagnosis Note [id number] KARLOS Sevilla [employer] [address] [place] [address] 04/22/2024 10:59:33 04/22/2024 12:29:01 Benign essential hypertension 4505234 I10 Borderline today but stable. continue medication s. Hyperlipidemia 55650700 E78.5 stable on statin therapy. due for fasting labs now and in aug. Hypothyroidism 14772995 E03.9 stable on thyroid supplement . due for labs now and in aug. Parkinson's disease 4904 9000 G20.A1 stable. following with specialist , on medication s. Long-term drug therapy 556639980 Z79.899 routine labs are due now and then August. Prediabetes 888416926 R7 3.03 mild a1c elevation today. following. discussed healthy diet, exercise, controllin g carbohydra natalia and added sugars in the diet. check a1c now and in Aug. Vitamin D deficiency 347 55534 E55.9 on high dose vitamin D supplement . check updated lab Mixed anxi ety and depressive disorder 238725798 F41.8 stable on sertraline therapy. no changes. Body mass index 40+ - severely obese 836395626 Z68.41 Obesity 859242702 E66.8 [id number] KARLOS Sevilla [employer] [address] [place] [address] 10/16/2024 10:52:06 10/16/2024 12:00:44 Benign essential hypertension 1673803 I10 Blood pressure is well-contr olled today, continue medication s. Diltiazem CD 240 mg daily hydrochlor othiazide 25 mg daily Parkinson's disease 4904 9000 G20.A1 stable. following with specialist , on medication s. Carbidopa levodopa combinatio n Hyperlipidemia 08023720 E78.5 stable on statin therapy. due for fasting labs again in February. On rosuvastat in 20 mg daily Hypothyroidism 17029505 E03.9 stable on thyroid supplement . Synthroid 137 mcg daily. Due for repeat thyroid function panel in February Prediabetes 414936172 R7 3.03 5.4% A1c. Patient has had terrific response to diet modificati ons and weight loss and exercise. Mixed anxi ety and depressive disorder 623946397 F41.8 stable on sertraline therapy. no changes. Vitamin D deficiency 347 18186 E55.9 on high dose vitamin D supplement . check updated lab in February Long-term drug therapy 414408498 Z79.899 cmp, cbc and b12, folate labs are due Obesity 487755627 E66.9 Chronic constipation 236 092422 K59.09 related to her parkinson' s diagnosis. Body mass index 30+ - obesity 357986787 Z68.33 BMI is decreased to 33 with terrific dietary modificati ons and continued exercise. Health Concerns Section Related Observation LastModified by Organization Detai ls LastModified Time None Recorded Concern Status LastModified by Organization Details LastModified Time None Recorded Advance Directives Directive Y: Payers Encounter Date Sequence Insurance Name Policy Number Policy Haynes Covered Member ID Haynes Member ID Guarantor Name 04/22/2024 1 [place] [id number] Jeff Mosley [id number] Jaimie Mosley 10/16/2024 1 [place] [id number] Jeff Mosley [id number] Jaimie Mosley Notes Date Note Type Note Provider Name and Address Organization Details Recorded Time 04/22/2024 text/html Anxiety/Depressi on Reported bypatient.Notes:st able on sertraline 100mg two daily.Hyperlipidem iaReported bypatient.Notes:st able on rosuvastatin 20mg daily.Hypertension Reported bypatient.Notes:st able on diltiazem CD 240mg daily and hctz 25mg daily andReflux/GERDRepo rted bypatient.Notes:st able on omeprazole 20mg daily.ThyroidRepor villa bypatient.Notes:st able on Unithroid 137mcg daily. Parkinson's disease. pt is stable on medications from specialist KARLOS Sevilla Attn: Accounting,[address] [facility], [place], [address], [facility] 05/09/2024 12:40:58 10/16/2024 text/html Anxiety/Depressi on Reported bypatient.Notes:st able on sertraline 100mg two daily.Hyperlipidem iaReported bypatient.Notes:st able on rosuvastatin 20mg daily.Hypertension Reported bypatient.Notes:st able on diltiazem CD 240mg daily and hctz 25mg daily andReflux/GERDRepo rted bypatient.Notes:st able on omeprazole 20mg daily.ThyroidRepor villa bypatient.Notes:st able on Unithroid 137mcg daily. Parkinson's disease. pt is stable on medications from specialist KARLOS Sevilla Attn: Accounting,[address] [facility], [place], [address], [facility] 11/02/2024 21:50:21 OBGyn Episode No OBEpisode recorded.
--- OUTSIDE RECORDS SUMMARY | 2024-11-27 18:48 | XMS_ITS | Data Portability ---
Author Organization [place] - [facility] (11) Address [address] [facility] [address] [place] [address] Care Team Providers Care Glory Hole Tender Name Role Phone IV & RESPIRATORY CARE OTHER Assessment No assessment recorded. Plan of Treatment Reminders Order Date Submit Date Provider Last Modified By Organization Details Last Modified Time Details Appointments None record ed. Lab None record ed. Referral None record ed. Procedures None record ed. Surgeries None record ed. Imaging None record ed. Medication Orders None record ed. Patient TargetsNo targets recorded. Patient InstructionsNo instructions recorded. Reason for Referral None Reported. Procedures Surgical History Date Name Laterality Status Provider Name and Address Organization Details Recorded Time 11/08/19 17 Sleep Study completed Dipesh Graff [place] - [facility]/S[facility] 11/09/2016 11:52:26 Adenoid Surgery completed MAVERICK ARTEAGA MD, ANDREE F.C.C.P. [address] [place] [address], [phone], [facility] - CSI/KVH/SMSC 10/06/2016 14:16:33 Cholecystectomy completed MAVERICK ARTEAGA MD, ANDREE F.C.C.P. [address] [place] [address], [phone], [facility] CSI/KVH/SMSC 10/06/2016 14:16:40 Nsl/sins ndsc frnt tiss rmvl completed MAVERICK DILLARD MD, Shagufta CANDELARIO.C.C.P. [address] [place] [address], [phone], [facility] 10/06/2016 14:16:56 Imaging Results None recorded. Procedure Notes None recorded. Medical Equipment None Reported. Allergies Allergen ID Allergen Name Allergen Category Reaction Reaction Severity Criticality Documentation Date Start Date Code Code System Note Provider Name and Address Organization Details Recorded Time [id number] 360583758 5278522e2 2824e Product containin g penicilli n and antibioti c (product) medicatio n Not available Not available Not available 10/06/2016 15385 05 SNOMED Not Available Not Available Not Available [id number] [id number] 9695536v7 2824e Substance with sulfonami de structure and antibacte rial mechanism of action (substanc e) medicatio n Not available Not available Not available 10/06/2016 31074 8003 SNOMED Not Available Not Available Not Available [id number] [id number] 9368020m1 2824e codeine medicatio n Not available Not available Not available 10/06/2016 2670 RxNorm Not Available Not Available Not Available Medications Name Sig Start Date Stop Date Status Note LastModified by Organization Details LastModified Time clindamycin HCl 300 mg capsule active Not Available Not Availab le Not Available atorvastatin 10 mg tablet active Not Available Not Available No t Available azithromycin 250 mg tablet active Not Available Not Availabl e Not Available metoprolol succinate ER 50 mg tablet,extended release 24 hr active Not Available Not Availabl e Not Available sertraline 100 mg tablet active Not Available Not Available No t Available tramadol 50 mg tablet active Not Available Not Available Not Available amitriptyline 10 mg tablet active Not Available Not Available Not Available meclizine 25 mg tablet active Not Available Not Available Not Available benzonatate 100 mg capsule active Not Available Not Available N ot Available metoprolol succinate ER 25 mg tablet,extended release 24 hr active Not Available Not Availabl e Not Available levofloxacin 500 mg tablet active Not Available Not Availabl e Not Available Vitamin D2 1,250 mcg (50,000 unit) capsule active Not Available Not Available Not Available naratriptan 2.5 mg tablet active Not Available Not Available No t Available levothyroxine 112 mcg tablet active Not Available Not Availab le Not Available metoprolol tartrate 25 mg tablet active Not Available Not Available Not Available ProAir HFA 90 mcg/actuation aerosol inhaler active Not Available Not Availa ble Not Available TRUEplus Lancets 30 gauge active Not Available Not Available Not Available Fluzone Quad 8932-2679 (PF) 60 mcg (15 mcg x 4)/0.5 mL IM suspension active Not Available Not Available N ot Available Vitals None Recorded Social History Question Answer Notes LastModified by Organizat ion Details LastModified Time Tobacco Smoking Status Never Smoker MAVERICK DILLARD MD, ANDREE, F.C.C.P. [address] [facility] [address], [place], [address], [facility] - [facility] 10/06/2016 14:15:51 What Is Your Level Of Alcohol Consumption? None Information not available 10/06/2016 Marital Status Informatio n not available 10/06/2016 How Many Children Do You Have? 2 Information not available 10/06/2016 Sex: Unknown Functional Status None recorded. Mental Status None recorded. Family History Relationship Description Onset Age of this Age Resolved Age Notes LastModified by Organization Details LastModified Time Father Obstructive sleep apnea syndrome [email or web address] Not available 2015 14:15:40 Medical History Condition Response Thyroid Disease Y Hypertension Y Depression Y Sleep Apnea Y Gynecological HistoryNo gynecological history recorded. Obstetrics History GPAL:G 0 P 0 0 0 0 Past Encounters Encounter ID Performer Location Encounter Start Date Encounter Closed Date Diagnosis/Indication Diagnosis SNOMED-CT Code Diagnosis ICD10 Code Diagnosis Note [id number] MAVERICK DILLARD MD, ANDREE F.C.C.P. [facility] (11) [address] [facility] [address] [place] [address] 10/06/2016 14:00:18 10/06/2016 14:48:23 Obstructive sleep apnea of adult 1101244172 103 G47.33 [id number] MAVERICK DILLARD MD, ANDREE, F.C.C.P. [facility] (11 [id number] [facility] [address] [place] [address] 11/08/2016 09:39:11 11/09/2016 11:31:23 Obstructive sleep apnea of adult 4506150911 103 G47.33 [id number] Ayaka Dobbins [facility] (11) [address] [place] [address] 11/13/2016 12:27:10 11/13/2016 15:20:12 [id number] Ayaka Dobbins [facility] (11) [address] [place] [address] 11/20/2016 09:59:00 11/20/2016 10:19:26 [id number] Ayaka Hutchinshoff [facility] (11) [address] [place] [address] 11/27/2016 09:55:05 11/27/2016 11:25:17 [id number] Ayaka Hutchinshoff [facility] (11) [address] [place] [address] 11/30/2016 10:12:42 11/30/2016 10:20:50 [id number] Ayaka Guoff [facility] (11) [address] [place] [address] 12/07/2016 11:09:21 12/07/2016 11:26:44 [id number] Ayaka Hutchinshoff [facility] (11) [address] [place] [address] 01/10/2017 09:15:32 01/10/2017 09:27:08 [id number] Ayaka Dobbins [facility] (11) [address] [place] [address] 2017 09:41:55 2017 09:48:50 Health Concerns Section Related Observation LastModified by Organization Detai ls LastModified Time None Recorded Concern Status LastModified by Organization Details LastModified Time None Recorded Advance Directives Directive None Recorded Payers Encounter Date Sequence Insurance Name Policy Number Policy Haynes Covered Member ID Haynes Member ID Guarantor Name 11/27/2016 1 [place] [id number] Jeff Mosley [id number] Jaimie Mosley 11/30/2016 1 [place] [id number] Jeff Mosley [id number] 59 Jaimie Mosley 12/07/2016 1 [place] [id number] Jeff Mosley [id number] 59 Jaimie Mosley 01/10/2017 1 [place] [id number] Jeff Mosley [id number] 61 Jaimie Mosley 2017 1 [place] [facility] [id number] Jeff Mosley [id number] 59 Jaimie Mosley Notes Date Note Type Note Provider Name and Address Organization Details Recorded Time 11/27/2016 text/html PAP SetupReporte d bypatient.The patient was set up on[employer] with SN# [id number] APAP with a pressure setting of; 6-16 (on 8cm @ home cm H2O; The patient was fit with Nasal Mask; per patient request; Pt has pillows at home but they leak a lot. Wanted the dreamwear. Great fit during set up The patient states that the interface iscomfortable and not experiencing leaks.; Patient verbalizes understanding that there were other options for [employer] companies and has selected [employer].; Cleaning instructions were reviewed and provided to the patient.; Patient acknowledged understanding of their financial responsibility.; Patient verbalized understanding importance to use PAP therapy when ever sleeping (including naps) and failure to maintain miniumum adherence requirements of (70% usage/min 4 hours nightly) may result in increased financial responsibility.; The patients has made a follow up appointment with their doctor.; Authorization #[id number]; Authorization expires02/24/2017; Patient registered and entered into rumr: turn off the lights;The patient has worn CPAP in the past. Orginally set up 2007Notes:Great set up , went over data cost cleaning and ahi. jennifer jaimes, MARIA VICTORIA - [facility] 11/27/2016 11:22:28 11/30/2016 text/html CPAP f/upReporte d bypatient.CPAPPatie nt is using CPAP regularly..; Patient estimates 6 hours of PAP use nightly.; The patient reports feeling better with CPAP; The patient reports no new medical problems.; No surgeries or hospitalizations reported since last visit.; The patient does not notice mask leaking.; Snoring is not observed when CPAP is used.; does not remove CPAP mask during the night; wakes up rested; no headache; no problems with sleep maintenance; no ear pain; no ear pressure; no trouble with sleep initiationNotes:CH[place] NG VERY WELL. She is getting up to use the restroom. She staes she drinks a lot of water. THe frequency is decreasing however . She also will increase her CALEB and use the (warmup button) I went over her download with her as well. Very happy. jennifer Marley MARIA VICTORIA Eddy [facility] 11/30/2016 10:17:58 12/07/2016 text/html I called pt at o ur time today to discuss her progress after 2 weeks. I had to leave a message on her voice mail to please call me back with her progress. jennifer Malrey MARIA VICTORIA Eddy [facility] 12/07/2016 11:10:49 01/10/2017 text/html I called pt toda y to be sure my suggestions have worked and she is feeling better less dry less sleep arousals . Turning the humidifer back to auto, and increasing her min pressure has helped a lot. She is still getting up to use the restroom but not as much. I asked about drinking and she drinks water up until bedtime so I suggested stop drinking an hour before bedtime except for sips. I encouraged her to call me with her progress and or problmes. rowdy Marley Sarirosangela MARIA VICTORIA jaimes [facility] 01/10/2017 09:24:57 2017 text/html called pt today to chek on her progress and treatment after 2 months. I called at the correct time, but had to leave a message. He aim auth is due 02/24/2017. I uploaded her compliance today. OVERALL: averaging 7.35 hours/night 97% of the time. no leak at all, Average pressure 90% of the time is 11.7 cm with an AHI=.6/hr.. jennifer Marley MARIA VICTORIA Eddy [facility] 2017 09:47:18 OBGyn Episode No OBEpisode recorded.
== END 2024-11-25 14:20 | disposition home or self-care (01) ==
PROVIDERS: PCP Physician Assistant; Visit Provider Nurse Practitioner
DX: Z12.31 Encounter for screening mammogram for malignant neoplasm of breast (principal)
CPT/HCPCS: 77063; 77067

== ENCOUNTER 2025-04-15 13:57 | Outpatient (CLI) | payer BC, SELFPAY ==
--- NOTE | ~2025-04-15 | DEXA_ITS ---
Bone Density Report Name: RIRI ROBLES Age: 60 Sex: Female Ethnicity: White Date of : 1965 Indication: postmenopausal; screening for osteoporosis; height loss; Referring Provider: CARMELA, GAUTAM Study: Bone densitometry was performed. Exam Date: April 15, 2025 Accession number: [id number] Bone Density: Region BMD T-score Z-score Classification AP Spine(L1-L4) 0.923 -1.1 0.4 Osteopenia Femoral Neck (Left) 0.675 -1.6 -0.2 Osteopenia Total Hip (Left) 0.927 -0.1 0.9 Normal Femoral Neck (Right) 0.751 -0.9 0.5 Normal Total Hip (Right) 0.933 -0.1 1.0 Normal Total Hip Mean 0.930 -0.1 1.0 Normal World Health Organization criteria for BMD impression classify patients as: Normal (T-score at or above -1.0), Osteopenia (T-score between -1.0 and -2.5), or Osteoporosis (T-score at or below -2.5). 10-year Fracture Risk(1): Major Osteoporotic Fracture 7.9% Hip Fracture 0.7% Reported Risk Factors: [place] (), Neck BMD=0.675, BMI=34.9 (1) FRAX(R) Version 3.08. Fracture probability calculated for an untreated patient. Fracture probability may be lower if the patient has received treatment. Clinical Information Provided by Patient: Has used the following medications: Vitamin D Patient maximum height was 68 Menopause Age: 50 Does not regularly consume dairy products Onset of menses at age 11 Number of children 2 Impression: The patient has low bone mass, based on the Left Femoral Neck T-score. The patient has an estimated ten-year risk of hip fracture of 0.7% and an estimated ten-year risk of major fracture of 7.9%, based on the WHO FRAX algorithm. Discussion: BONE DENSITY IS LOW AT ONE OR MORE SKELETAL SITES. This patient's lowest T-score is low at one or more skeletal sites. It meets the World Health Organization's (WHO) criteria for ?low bone mass? (T-score between -1.0 and -2.5). The patient's 10-year risk of fracture as calculated by FRAX is less than the threshold where pharmacological therapy is recommended by the National Osteoporosis Foundation (NOF). However, all treatment decisions require clinical judgment and consideration of individual patient factors, including patient preferences, comorbidities, previous drug use, risk factors not captured in the FRAX model (e.g., frailty, falls, vitamin D deficiency, increased bone turnover, interval significant decline in bone density) and possible under or overestimation of fracture risk by FRAX. The patient should follow a healthful lifestyle (good nutrition with adequate calcium and vitamin D, and appropriate weight-bearing exercise). Follow-Up: Consider repeating this study in 2 to 3 years to reassess this patient's status, or sooner if there is some new clinical indication. Reported by: LEVY on 04/15/2025 2:39:00 PM. Reviewed, dictated and finalized at location A.
--- OUTSIDE RECORDS SUMMARY | 2025-04-15 16:53 | XMS_ITS | Data Portability ---
Author Organization [place] - [facility] (11) Address [address] [facility] [address] [place] [address] Care Team Providers Care Dry Transfer Man Name Role Phone IV & RESPIRATORY CARE [...] 11/08/19 17 Sleep Study completed Dipesh Graff [place] - [facility] 11/09/2016 11:52:26 Adenoid Surgery completed MAVERICK ARTEAGA MD, ANDREE F.C.C.P. [address] [place] [address], [phone], [facility] - [facility] 10/06/2016 14:16:33 Cholecystectomy completed MAVERICK ARTEAGA MD, ANDREE F.C.C.P. [address] [place] [address], [phone], [facility] C[facility]/K[facility]H/SMSC 10/06/2016 14:16:40 Nsl/sins ndsc frnt tiss rmvl completed MAVERICK DILLARD MD, Shagufta CANDELARIO.C.C.P. [address] [place] [address], [phone], [place] - [facility] 10/06/2016 14:16:56 Imaging Results None recorded. Procedure Notes None recorded. Medical Equipment None Reported. Allergies Allergen ID Allergen Name Allergen Category Reaction Reaction Severity Criticality Documentation Date Start Date Code Code System Note Provider Name and Address Organization Details Recorded Time 6739 Product containin g penicilli n (product) medicatio n Not available Not available Not available 10/06/2016 52361 8001 ODETTE DILLARD MD, ANDREE F.C.C.P. NPI [id number] [address] [place] [address], [address] [place] [address] 2, [place] - [facility] 6 14:14:01 6740 Substance with sulfonami de structure and antibacte rial mechanism of action (substanc e) medicatio n Not available Not available Not available 10/06/2016 01038 8003 ODETTE DILLARD MD, ANDREE F.C.C.P. NPI [id number] [address] [place] [address], [address] [place] [address] 2, [place] [facility] 6 14:14:16 6741 codeine medicatio n Not available Not available Not available 10/06/2016 2670 RxNorm MAVERICK DILLARD MD, ANDREE F.C.C.P. NPI [id number] [address] [place] [address], [address] [place] [address] 2, [place] - [facility] 6 14:14:52 Medications Name Sig Start Date Stop Date [...] Available Not Available Not Available Fluzone Quad 8504-1071 (PF) 60 mcg (15 mcg x 4)/0.5 mL IM suspension active Not Available Not Available N ot Available Vitals None Recorded Social History Question Answer Notes LastModified by Organizat ion Details LastModified Time Tobacco Smoking Status Never Smoker MAVERICK DILLARD MD, ANDREE, F.C.C.P. [address] [place] [address], [phone], [facility] [place] 10/06/2016 14:15:51 Marital Status Informatio n not available 10/06/2016 How Many Children Do You Have? 2 Information not available 10/06/2016 Sex: Unknown Functional Status Question Answer Note LastModified by Organization D etails LastModified Time What is your level of alcohol consumption? None Information not available 10/06/2016 Mental Status None recorded. Family History Relationship [...] SNOMED-CT Code Diagnosis ICD10 Code Diagnosis Note [id number] MAVERICK DILLARD MD, ANDREE, F.C.C.P. [facility] 11) [address] [place] [address] 10/06/2016 14:00:18 10/06/2016 14:48:23 Obstructive sleep apnea of adult 5171275973 103 G47.33 [id number] [facility] Dunn, [facility] (11) [address] [place] [address] 11/08/2016 09:39:11 11/09/2016 11:31:23 Obstructive sleep apnea of adult 6852615441 103 G47.33 [id number] [facility] (11) [address] [facility] [address] [place] [address] 11/13/2016 12:27:10 11/13/2016 15:20:12 [id number] C[facility] (11) [address] [facility] [address] [place] [address] 11/20/2016 09:59:00 11/20/2016 10:19:26 [id number] C[facility] (11) [address] [facility] [address] [place] [address] 11/27/2016 09:55:05 11/27/2016 11:25:17 [id number] CSI C[facility] (11) [address] [facility] [address] [place] [address] 11/30/2016 10:12:42 11/30/2016 10:20:50 [id number] C[facility] (11) Meka [address] [facility] [address] [place] [address] 12/07/2016 11:09:21 12/07/2016 11:26:44 [id number] CSI C[facility] (11) [address] [facility] [address] [place] [address] 01/10/2017 09:15:32 01/10/2017 09:27:08 [id number] CSI C[facility] (11) [address] [facility] [address] [place] [address] 2017 09:41:55 2017 09:48:50 Health Concerns Section Related Observation LastModified by Organization Detai ls LastModified Time None Recorded Concern Status LastModified by Organization Details LastModified Time None Recorded Advance Directives Directive None Recorded Payers Insurance Date Sequence Insurance Name Policy Number Policy Haynes Covered Member ID Haynes Member ID Guarantor Name 06/26/2017 1 [place] [id number] Jeff Mosley [id number] Jaimie Mosley 08/24/2017 1 [place] [id number] Jeff Mosley [id number] 59 Jaimie Mosley 06/21/2017 2 [place] [id number] Jaimie Mosley [id number] 59 Jaimie Mosley Notes Date Note Type Note Provider Name and Address Organization Details Recorded Time 11/27/2016 text/html PAP SetupReporte d bypatient.The patient was set up [employer] with SN# [id number] APAP with a pressure setting of; 6-16 (on 8cm @ home cm H2O; The patient was fit with Nasal Mask; per patient request; Pt has pillows at home but they leak a lot. Wanted the dreamwear. Great fit during set up The patient states that the interface iscomfortable and not experiencing leaks.; Patient verbalizes understanding that there were other options for DME companies and has selected [employer].; Cleaning instructions were reviewed and provided to the patient.; Patient acknowledged understanding of their financial responsibility.; Patient verbalized understanding importance to use PAP therapy when ever sleeping (including naps) and failure to maintain miniumum adherence requirements of (70% usage/min 4 hours nightly) may result in increased financial responsibility.; The patients has made a follow up appointment with their doctor.; Authorization #[id number]; Authorization expires02/24/2017; Patient registered and entered into [employer];The patient has worn CPAP in the past. Orginally set up 2007Notes:Great set up , went over data cost cleaning and ahi. jennifer jaimes, [facility]CTOR[facility] 11/27/2016 11:22:28 11/30/2016 text/html CPAP f/upReporte [...] download with her as well. Very happy. rowdyMARIA VICTORIA Rivera [facility] 11/30/2016 10:17:58 12/07/2016 text/html I called pt at o ur time today to discuss her progress after 2 weeks. I had to leave a message on her voice mail to please call me back with her progress. MARIA VICTORIA Jonas [facility] 12/07/2016 11:10:49 01/10/2017 text/html I called pt [...] me with her progress and or problmes. MARIA VICTORIA Leon [facility] 01/10/2017 09:24:57 2017 text/html called pt today [...] time is 11.7 cm with an AHI=.6/hr.. MARIA VICTORIA Jonas [facility] 2017 09:47:18 OBGyn Episode No OBEpisode recorded.
--- OUTSIDE RECORDS SUMMARY | 2025-04-15 16:53 | XMS_ITS | Continuity of Care Document ---
Author Organization [facility] Address [address] [place] [address] [address] [place] [address] Phone Care Team Providers Care Certified Athletic Trainer Name Role Phone Jeremi LUCERODebra Unavailable Unavailable Procedures Procedure Date THERAPEUTIC EXERCISES NEUROMUSCULAR RE-ED MANUAL THERAPY THERAPEUTIC EXERCISES NEUROMUSCULAR RE-ED MANUAL THERAPY PT RE-EVALUATION THERAPEUTIC EXERCISES NEUROMUSCULAR RE-ED MANUAL THERAPY THERAPEUTIC EXERCISES NEUROMUSCULAR RE-ED MANUAL THERAPY THERAPEUTIC EXERCISES NEUROMUSCULAR RE-ED MANUAL THERAPY THERAPEUTIC EXERCISES NEUROMUSCULAR RE-ED MANUAL THERAPY THERAPEUTIC EXERCISES NEUROMUSCULAR RE-ED MANUAL THERAPY THERAPEUTIC EXERCISES MANUAL THERAPY THERAPEUTIC EXERCISES NEUROMUSCULAR RE-ED MANUAL THERAPY THERAPEUTIC EXERCISES NEUROMUSCULAR RE-ED MANUAL THERAPY PT EVALUATION THERAPEUTIC EXERCISES Advance Directives Directive Yes / No Effective Date File Name No Information Encounters Encounter Description Practice Location Reason(s) For Visit Diagnoses Date Provider Providers Copied on Encounter [facility], [address] [place], [place] [address], [place], [place], [id number], [phone] [place] No Information Sep-1 0-201 5 Jeremi Debra. [address] [facility], [address], [place], [facility], . tel:[phone] Referring Provider: Carlos Gibbons, [address] [place] [address] [address], [place], [address]. tel:[phone], [id number], tel:[phone] [place] No Information Sep-0 8-201 5 Jeremi Debra. [address] [place] [address], [address], [place], [facility], . tel:[phone] Referring Provider: Carlos Gibbons, [address] [place] [address] [address], [place], [place], [facility]. tel:[phone], [id number], tel:[phone] [place] No Information Sep-0 1- 5 Jeremi Debra. [address] [place] [address], [address], [place], [facility], . tel:[phone] Referring Provider: Carlos Gibbons, [address] [place] [address] [address], [place], [address]. tel:[phone], [id number], tel:[phone] [place] No Information Jun-2 8 5 Jeremi Debra. [address] [place] [address], [address], [place], [facility], . tel:[phone] Referring Provider: Carlos Gibbons, [address] [place] [address] [address], [place], [address]. tel:[phone], [id number], tel:[phone] [place] No Information Aug-2 5-201 5 Jeremi Debra. [address] [facility], [address], [place], [address], [place]. tel: [phone] Referring Provider: Carlos Gibbons [address] [facility] [address], [place], [address]. tel:[phone], [place], [place], [id number], [place] tel:[phone] [place] No Information Jeremi Debra. [address] [facility], [address], [place], [place], [facility], [place]. tel: [phone] Referring Provider: Eldon Pak [facility] [address], [place], [address]. tel:[phone] [place] [address], [place], [place], [id number], [place] tel:[phone] [place] No Information Jeremi Debra. [address] [place] [address], [address], [place], [place], [facility], [place]. tel: [phone] Referring Provider: Eldon Pak [facility] [address], [place], [address]. tel:[phone], [place], [place], [id number], [place] tel:[phone] [place] No Information Jeremi Debra. [address] [place] [address], [address], [place], [place], [facility], [place]. tel: [phone] Referring Provider: Carlos Gibbons [address] [facility] [address], [place], [address]. tel:[phone], [place], [place], [id number], [place] tel:[phone] [place] No Information Jeremi Debra. [address] [place] [address], [address], [place], [facility], [place]. tel: [phone] Referring Provider: Carlos Gibbons, [address] [facility] [address], [place], [address]. tel:[phone], [id number], tel:[phone] [place] Other disorders of coccyx Jeremi Richardson. [address] [facility], [facility] [address], [place], [facility], . tel:[phone] Referring Provider: Carlos Gibbons, [address] [facility] [address], [place], [address]. tel:[phone], [id number], tel:[phone] [place] Pain in joint involving ankle and foot Jeremi Richardson. [address] [facility], [facility] [address], [place], [facility], . tel:[phone] Referring Provider: Carlos Gibbons, [address] [place] [address] [place] [address], [address]. tel:[phone] Family History Family Member Type Diagnosis Age At Onset No Information Payers Payer name Insurance type Covered green party ID Authoriza sobeida(s[id number] 2014 Social History Type Description Quantity Date Captured Comments Sex Female Smoking Status No Information Chief Complaint And Reason For Visit No Information Reason For Referral Reason For Referral No Information History Of Present Illness Encounter Date Complaint History Of Prese nt Illness No Information Functional Status Date Functional Assessmen t No Information Instructions Date Instruction Additional Infor mation No Information Assessments Type Assessment Date No Information Patient Care Teams Name Effective Dates (start - stop) Status Members No Information
--- OUTSIDE RECORDS SUMMARY | 2025-04-15 16:53 | XMS_ITS | Data Portability ---
Author Organization [place] [facility], Main Office Address [address] [place] [address] Assessment No assessment recorded. Plan of Treatment Reminders Order Date Submit Date Provider Last Modified By Organization Details Last Modified Time Details Appointments None recorded. Lab HbA1c (hemoglobi n A1c), blood 2022 023 [email or web address] [facility], [address], [address], [place], [address], 4 11:06:52 insulin, serum [facility]22 023 [facility], [address], [address], [place], [address], 4 11:06:52 lipid panel, serum 2022 023 [email or web address] [facility], [address], [address], [place], [address], 4 11:06:52 TSH + free T4, serum 2022 023 [facility], [address], [address], [place], [address], 4 11:06:51 T3, free, serum or plasma 2022 023 [facility], [address], [place], [address], 4 11:06:51 CMP, serum or plasma 2022 023 [email or web address] [facility], [address], [place], [address], 4 11:06:52 CBC w/ auto diff 2022 023 BRONX [facility], [address], [place], [address], 3 07:17:31 Referral None recorded. Procedures None recorded. Surgeries None recorded. Imaging None recorded. Medication Orders omega-3 acid ethyl esters 1 gram capsule 2022 023 [facility] [address] [place], [address], 3 16:34:59 Unithroid 137 mcg tablet 2022 023 [email or web address] [facility] [address] [place], [address], 3 17:40:35 Patient TargetsNo targets recorded. Patient InstructionsNo instructions recorded. Reason for Referral None Reported. Results Created Date Observation Date Name Description Value Unit Range Abnormal Flag Note LastModifiedBy Organization Detail LastModifiedTime 09/13/20 22 09/15/2022 TSH+F REE T4 TSH 3.89 mIU/L 0.40-4 .50 normal Not Available [facility] [address], [address], 09/15/2022 19:55:34 09/13/20 22 09/15/2022 TSH+F REE T4 T4, free 1.1 NG/dL 0.8-1. 8 normal Not Available [facility] [address], [address], 09/15/2022 19:55:34 09/13/20 22 09/15/2022 T3, FREE T3, free 3.0 pg/mL 2.3-4. 2 normal Not Available [facility] [address], [address], 09/15/2022 19:55:34 09/13/20 22 09/15/2022 VITAM IN B12/F OLATE , SERUM PANEL vitamin B12 519 pg/mL 200-11 00 normal Not Available [address], [address], 09/15/2022 19:55:33 09/13/20 22 09/15/2022 VITAM IN B12/F OLATE , SERUM PANEL folate, serum 11.2 NG/mL normal Refer ence Range Low: <3.4 Borde rline : 3.4-5 .4 Almita l: >5.4 Not Available [address], [address], 09/15/2022 19:55:33 09/13/20 22 09/15/2022 DHEA SULFA TE DHEA sulfate 42 mcg/d L 5-167 normal DHEA- S value s fall with advan cing age. For refer ence, the refer ence inter vals for 31-40 year old patie nts are: Male: 93-41 5 mcg/d L Femal e: 19-23 7 mcg/d L Not Available [address], [address], 09/15/2022 19:55:33 09/13/20 22 09/15/2022 THYRO ID PEROX IDASE ANTIB ODIES thyroid peroxidase antibodies 60 IU/mL <9 high Not Available [address], [address], 09/15/2022 19:55:32 09/13/20 22 09/15/2022 COMPR EHENS ANALY METAB OLIC PANEL glucose 80 mg/dL 65-99 normal Fasti ng refer ence inter mckenna Not Available [address], [address], 09/15/2022 19:55:32 09/13/20 22 09/15/2022 COMPR EHENS ANALY METAB OLIC PANEL urea nitrogen (BUN) 16 mg/dL 7-25 normal Not Available [address] [address] [place], [address], 09/15/2022 19:55:32 09/13/20 22 09/15/2022 COMPR EHENS ANALY METAB OLIC PANEL creatinine 0.61 mg/dL 0.50-1 .03 normal Not Available [address] [address] [place], [address], 09/15/2022 19:55:32 09/13/20 22 09/15/2022 COMPR EHENS [...] kdoqi /gfr% 5Fcal culat or Not Available [address] [address] [place], [address], 09/15/2022 19:55:32 09/13/20 22 09/15/2022 COMPR EHENS ANALY METAB OLIC PANEL BUN/creatini ne ratio not applic able (calc ) 6-22 Not Available [address], [address], 09/15/2022 19:55:32 09/13/20 22 09/15/2022 COMPR EHENS ANALY METAB OLIC PANEL sodium 140 mmol/ L 135-14 6 normal Not Available [address], [address], 09/15/2022 19:55:32 09/13/20 22 09/15/2022 COMPR EHENS ANALY METAB OLIC PANEL potassium 4.0 mmol/ L 3.5-5. 3 normal Not Available [facility] [address] [address] [place], [address], 09/15/2022 19:55:32 09/13/20 22 09/15/2022 COMPR EHENS ANALY METAB OLIC PANEL chloride 102 mmol/ L 98-110 normal Not Available [address], [address], 09/15/2022 19:55:32 09/13/20 22 09/15/2022 COMPR EHENS ANALY METAB OLIC PANEL carbon dioxide 28 mmol/ L 20-32 normal Not Available [address], [address], 09/15/2022 19:55:32 09/13/20 22 09/15/2022 COMPR EHENS ANALY METAB OLIC PANEL calcium 9.8 mg/dL 8.6-10 .4 normal Not Available [address], [address], 09/15/2022 19:55:32 09/13/20 22 09/15/2022 COMPR EHENS ANALY METAB OLIC PANEL protein, total 7.1 g/dL 6.1-8. 1 normal Not Available [address], [address], 09/15/2022 19:55:32 09/13/20 22 09/15/2022 COMPR EHENS ANALY METAB OLIC PANEL albumin 4.4 g/dL 3.6-5. 1 normal Not Available [address], [address], 09/15/2022 19:55:32 09/13/20 22 09/15/2022 COMPR EHENS ANALY METAB OLIC PANEL globulin 2.7 g/dL_ (calc ) 1.9-3. 7 normal Not Available [address], [address], 09/15/2022 19:55:32 09/13/20 22 09/15/2022 COMPR EHENS ANALY METAB OLIC PANEL albumin/glob ulin ratio 1.6 (calc ) 1.0-2. 5 normal Not Available [address], [address], 09/15/2022 19:55:32 09/13/20 22 09/15/2022 COMPR EHENS ANALY METAB OLIC PANEL bilirubin, total 0.6 mg/dL 0.2-1. 2 normal Not Available [address], [address], 09/15/2022 19:55:32 09/13/20 22 09/15/2022 COMPR EHENS ANALY METAB OLIC PANEL alkaline phosphatase 86 U/L 37-153 normal Not Available [address], [address], 09/15/2022 19:55:32 09/13/20 22 09/15/2022 COMPR EHENS ANALY METAB OLIC PANEL AST 55 U/L 10-35 high Not Available [address], [address], 09/15/2022 19:55:32 09/13/20 22 09/15/2022 COMPR EHENS ANALY METAB OLIC PANEL ALT 62 U/L 6-29 high Not Available [address], [address], 09/15/2022 19:55:32 09/13/20 22 09/15/2022 LIPID PANEL , STAND KELLE cholesterol, total 163 mg/dL <200 normal Not Available [address], [address], 09/15/2022 19:55:32 09/13/20 22 09/15/2022 LIPID PANEL , STAND KELLE HDL cholesterol 44 mg/dL > or = 50 low Not Available [address], [address], 09/15/2022 19:55:32 09/13/20 22 09/15/2022 LIPID PANEL , STAND KELLE triglyceride s 138 mg/dL <150 normal Not Available [facility] [address] [place] [address], [address], 09/15/2022 19:55:32 09/13/20 22 09/15/2022 LIPID PANEL [...] 9): 2061- 2068 (http ://ed ucati on.Qu jaymeEat In Chef. com/f aq/FA Q164) Not Available [facility] [address] [place], [address], 09/15/2022 19:55:32 09/13/20 22 09/15/2022 LIPID PANEL , STAND KELLE chol/HDLC ratio 3.7 (calc ) <5.0 normal Not Available [facility] [address] [place], [address], 09/15/2022 19:55:32 09/13/20 22 09/15/2022 LIPID PANEL , STAND KELLE non HDL cholesterol 119 mg/dL _(carol c) <130 normal For patie nts with diabe natalia plus 1 major ASCVD risk facto r, treat ing to a non-H DL-C goal of <100 mg/dL (LDL- C of <70 mg/dL ) is consi dered a thera peuti c optio n. Not Available [facility] [address] [place], [address], 09/15/2022 19:55:32 09/13/20 22 09/15/2022 TESTO STERO NE, FREE, BIOAV AILAB LE AND TOTAL , MS albumin 4.4 g/dL 3.6-5. 1 Not Available [address], [address], 09/15/2022 19:55:31 09/13/20 22 09/15/2022 TESTO STERO NE, FREE, BIOAV AILAB LE AND TOTAL , MS sex hormone binding globulin 25.0 nmol/ L 14-73 Not Available [address], [address], 09/15/2022 19:55:31 09/13/20 22 09/15/2022 TESTO STERO NE, FREE, BIOAV AILAB LE AND TOTAL , MS testosterone , free 2.6 pg/mL 0.2-5. 0 Not Available [address], [address], 09/15/2022 19:55:31 09/13/20 22 09/15/2022 TESTO STERO NE, FREE, BIOAV AILAB LE AND TOTAL , MS testosterone ,bioavailabl e 5.2 NG/dL 0.5-8. 5 Not Available [address], [address], 09/15/2022 19:55:31 09/13/20 22 09/15/2022 TESTO STERO NE, FREE, BIOAV AILAB LE AND TOTAL , MS testosterone , total, MS 18 NG/dL 2-45 For addit ional camila farmer e refer to https ://ed ucati on.qu aki food.des. com/f aq/FA Q165 (This link is being provi ded for infor massiel nal/e ducat ional purpo ses only. ) (Note ) This test was devel oped and its dylan tical perfo rmanc e laura cteri stics have been deter mined by [employer]. It has not been clear ed or appro arnoldo by the FDA. This assay has been valid ated pursu ant to the CLIA regul ation s and is used for clini carol purpo ses. MDF med fusio n [address] [facility] [address] [place] [address] [phone] Ervin morales MD Not Available [facility] [address] [address] [place], [address], 09/15/2022 19:55:31 09/13/20 22 09/15/2022 IRON, TIBC AND ROCCO TIN PANEL iron, total 67 mcg/d L 45-160 normal Not Available [facility] [address] [address] [place], [address], 09/15/2022 19:55:31 09/13/20 22 09/15/2022 IRON, TIBC AND ROCCO TIN PANEL iron binding capacity 357 mcg/d L_(ca lc) 250-45 0 normal Not Available [facility] [address] [address] [place], [address], 09/15/2022 19:55:31 09/13/20 22 09/15/2022 IRON, TIBC AND ROCCO TIN PANEL % saturation 19 %_(ca lc) 16-45 normal Not Available [facility] [address] [address] [place], [address], 09/15/2022 19:55:31 09/13/20 22 09/15/2022 IRON, TIBC AND ROCCO TIN PANEL ferritin 55 NG/mL 16-232 normal Not Available [facility] [address] [address] [place], [address], 09/15/2022 19:55:31 04/13/20 23 04/16/2023 LIPID PANEL , STAND KELLE cholesterol, total 150 mg/dL <200 normal Not Available [facility] [address] [address] [place], [address], 04/16/2023 08:50:21 04/13/20 23 04/16/2023 LIPID PANEL , STAND KELLE HDL cholesterol 44 mg/dL > or = 50 low Not Available [facility] [address] [place], [address], 04/16/2023 08:50:21 04/13/20 23 04/16/2023 LIPID PANEL , STAND KELLE triglyceride s 128 mg/dL <150 normal Not Available [facility] [address] [place], [address], 04/16/2023 08:50:21 04/13/20 23 04/16/2023 LIPID PANEL [...] 2061- 2068 (http ://ed ucati on.Qu Aki Revolver. com/f aq/FA Q164) Not Available [facility] [address], [address], 04/16/2023 08:50:21 04/13/20 23 04/16/2023 LIPID PANEL , STAND KELLE chol/HDLC ratio 3.4 (calc ) <5.0 normal Not Available [facility] [address] [place] [address], [address], 04/16/2023 08:50:21 04/13/20 23 04/16/2023 LIPID PANEL , STAND KELLE non HDL cholesterol 106 mg/dL _(carol c) <130 normal For patie nts with diabe natalia plus 1 major ASCVD risk facto r, treat ing to a non-H DL-C goal of <100 mg/dL (LDL- C of <70 mg/dL ) is fabiola biggs optio n. Not Available [address] [address] [place], [address], 04/16/2023 08:50:21 04/13/20 23 04/16/2023 COMPR EHENS ANALY METAB OLIC PANEL glucose 91 mg/dL 65-99 normal Fasti ng refer ence inter mckenna Not Available [facility] [address] [address] [place], [address], 04/16/2023 08:50:21 04/13/20 23 04/16/2023 COMPR EHENS ANALY METAB OLIC PANEL urea nitrogen (BUN) 18 mg/dL 7-25 normal Not Available [address] [address] [place], [address], 04/16/2023 08:50:21 04/13/20 23 04/16/2023 COMPR EHENS ANALY METAB OLIC PANEL creatinine 0.66 mg/dL 0.50-1 .05 normal Not Available [address] [address] [place], [address], 04/16/2023 08:50:21 04/13/20 23 04/16/2023 COMPR EHENS [...] kdoqi /gfr% 5Fcal culat or Not Available [address] [address] [place], [address], 04/16/2023 08:50:21 04/13/20 23 04/16/2023 COMPR EHENS ANALY METAB OLIC PANEL BUN/creatini ne ratio NOT APPLIC ABLE (calc ) 6-22 Not Available [address], [address], 04/16/2023 08:50:21 04/13/20 23 04/16/2023 COMPR EHENS ANALY METAB OLIC PANEL sodium 142 mmol/ L 135-14 6 normal Not Available [address], [address], 04/16/2023 08:50:21 04/13/20 23 04/16/2023 COMPR EHENS ANALY METAB OLIC PANEL potassium 4.4 mmol/ L 3.5-5. 3 normal Not Available [address], [address], 04/16/2023 08:50:21 04/13/20 23 04/16/2023 COMPR EHENS ANALY METAB OLIC PANEL chloride 104 mmol/ L 98-110 normal Not Available [address], [address], 04/16/2023 08:50:21 04/13/20 23 04/16/2023 COMPR EHENS ANALY METAB OLIC PANEL carbon dioxide 30 mmol/ L 20-32 normal Not Available [address], [address], 04/16/2023 08:50:21 04/13/20 23 04/16/2023 COMPR EHENS ANALY METAB OLIC PANEL calcium 9.9 mg/dL 8.6-10 .4 normal Not Available [address], [address], 04/16/2023 08:50:21 04/13/20 23 04/16/2023 COMPR EHENS ANALY METAB OLIC PANEL protein, total 7.2 g/dL 6.1-8. 1 normal Not Available [address], [address], 04/16/2023 08:50:21 04/13/20 23 04/16/2023 COMPR EHENS ANALY METAB OLIC PANEL albumin 4.3 g/dL 3.6-5. 1 normal Not Available [address], [address], 04/16/2023 08:50:21 04/13/20 23 04/16/2023 COMPR EHENS ANALY METAB OLIC PANEL globulin 2.9 g/dL_ (calc ) 1.9-3. 7 normal Not Available [address], [address], 04/16/2023 08:50:21 04/13/20 23 04/16/2023 COMPR EHENS ANALY METAB OLIC PANEL albumin/glob ulin ratio 1.5 (calc ) 1.0-2. 5 normal Not Available [address], [address], 04/16/2023 08:50:21 04/13/20 23 04/16/2023 COMPR EHENS ANALY METAB OLIC PANEL bilirubin, total 0.5 mg/dL 0.2-1. 2 normal Not Available [address], [address], 04/16/2023 08:50:21 04/13/20 23 04/16/2023 COMPR EHENS ANALY METAB OLIC PANEL alkaline phosphatase 90 U/L 37-153 normal Not Available [address] [address] [place], [address], 04/16/2023 08:50:21 04/13/20 23 04/16/2023 COMPR EHENS ANALY METAB OLIC PANEL AST 46 U/L 10-35 high Not Available [address] [place], [address], 04/16/2023 08:50:21 06/0904/16/2023 COMPR EHENS ANALY METAB OLIC PANEL ALT 39 U/L 6-29 high Not Available [facility] [address], [address], 04/16/2023 08:50:21 04/13/2004/16/2023 THYRO ID PEROX IDASE ANTIB ODIES thyroid peroxidase antibodies 93 IU/mL <9 high Not Available [facility] [address], [address], 04/16/2023 08:50:22 04/13/2004/16/2023 INSUL IN insulin 39.0 [...] Diagn ostic s in 2021. Not Available [facility] [address], [address], 04/16/2023 08:50:23 04/13/2004/16/2023 T3, FREE T3, free 3.3 pg/mL 2.3-4. 2 normal Not Available [facility] [address], [address], 04/16/2023 08:50:23 04/13/2004/16/2023 TSH+F REE T4 TSH 3.12 mIU/L 0.40-4 .50 normal Not Available [facility] [address], [address], 04/16/2023 08:50:24 04/13/2004/16/2023 TSH+F REE T4 T4, free 1.1 NG/dL 0.8-1. 8 normal Not Available [facility] [address], [address], 04/16/2023 08:50:24 04/13/20 23 04/16/2023 HEMOG LOBIN [...] Care in Diabe natalia(A DA). Not Available [facility] [address] [address] [place], [address], 04/16/2023 08:50:25 10/12/20 23 10/13/2023 CBC (INCL UDES DIFF/ PLT) white blood cell count 6.1 thous and/u L 3.8-10 .8 normal Not Available [facility] [address] [address] [place], [address], 10/13/2023 07:17:31 10/12/20 23 10/13/2023 CBC (INCL UDES DIFF/ PLT) red blood cell count 5.18 catherine on/uL 3.80-5 .10 high Not Available [facility] [address] [place], [address], 10/13/2023 07:17:31 10/12/20 23 10/13/2023 CBC (INCL UDES DIFF/ PLT) hemoglobin 15.0 g/dL 11.7-1 5.5 normal Not Available [address], [address], 10/13/2023 07:17:31 10/12/20 23 10/13/2023 CBC (INCL UDES DIFF/ PLT) hematocrit 45.6 % 35.0-4 5.0 high Not Available [address], [address], 10/13/2023 07:17:31 10/12/20 23 10/13/2023 CBC (INCL UDES DIFF/ PLT) MCV 88.0 fL 80.0-1 00.0 normal Not Available [address], [address], 10/13/2023 07:17:31 10/12/20 23 10/13/2023 CBC (INCL UDES DIFF/ PLT) MCH 29.0 pg 27.0-3 3.0 normal Not Available [address], [address], 10/13/2023 07:17:31 10/12/20 23 10/13/2023 CBC (INCL UDES DIFF/ PLT) MCHC 32.9 g/dL 32.0-3 6.0 normal Not Available [address], [address], 10/13/2023 07:17:31 10/12/20 23 10/13/2023 CBC (INCL UDES DIFF/ PLT) RDW 13.7 % 11.0-1 5.0 normal Not Available [address], [address], 10/13/2023 07:17:31 10/12/20 23 10/13/2023 CBC (INCL UDES DIFF/ PLT) platelet count 212 thous and/u L 140-40 0 normal Not Available [address], [address], 10/13/2023 07:17:31 10/12/20 23 10/13/2023 CBC (INCL UDES DIFF/ PLT) MPV 11.0 fL 7.5-12 .5 normal Not Available [address], [address], 10/13/2023 07:17:31 10/12/20 23 10/13/2023 CBC (INCL UDES DIFF/ PLT) absolute neutrophils 3343 cells /uL 1500-7 800 normal Not Available [address], [address], 10/13/2023 07:17:31 10/12/20 23 10/13/2023 CBC (INCL UDES DIFF/ PLT) absolute lymphocytes 1915 cells /uL 850-39 00 normal Not Available [address], [address], 10/13/2023 07:17:31 10/12/20 23 10/13/2023 CBC (INCL UDES DIFF/ PLT) absolute monocytes 433 cells /uL 200-95 0 normal Not Available [address], [address], 10/13/2023 07:17:31 10/12/20 23 10/13/2023 CBC (INCL UDES DIFF/ PLT) absolute eosinophils 329 cells /uL 15-500 normal Not Available [address], [address], 10/13/2023 07:17:31 10/12/20 23 10/13/2023 CBC (INCL UDES DIFF/ PLT) absolute basophils 79 cells /uL 0-200 normal Not Available [address], [address], 10/13/2023 07:17:31 10/12/20 23 10/13/2023 CBC (INCL UDES DIFF/ PLT) neutrophils 54.8 % normal Not Available [address] [place], [address], 10/13/2023 07:17:31 10/12/20 23 10/13/2023 CBC (INCL UDES DIFF/ PLT) lymphocytes 31.4 % normal Not Available [facility] [address], [address], 10/13/2023 07:17:31 10/12/20 23 10/13/2023 CBC (INCL UDES DIFF/ PLT) monocytes 7.1 % normal Not Available [facility] [address], [address], 10/13/2023 07:17:31 10/12/20 23 10/13/2023 CBC (INCL UDES DIFF/ PLT) eosinophils 5.4 % normal Not Available [facility] [address], [address], 10/13/2023 07:17:31 10/12/20 23 10/13/2023 CBC (INCL UDES DIFF/ PLT) basophils 1.3 % normal Not Available [facility] [address], [address], 10/13/2023 07:17:31 08/18/20 24 08/19/2024 TSH+F REE T4 TSH 1.17 mIU/L 0.40-4 .50 normal Not Available [facility] [address], [address], 08/19/2024 07:36:24 08/18/20 24 08/19/2024 TSH+F REE T4 T4, free 1.1 NG/dL 0.8-1. 8 normal Not Available [facility] [address], [address], 08/19/2024 07:36:24 08/18/20 24 08/19/2024 LIPID PANEL WITH RATIO S cholesterol, total 124 mg/dL <200 normal Not Available [address], [address], 08/19/2024 07:36:26 08/18/20 24 08/19/2024 LIPID PANEL WITH RATIO S HDL cholesterol 40 mg/dL > or = 50 low Not Available [facility] [address] [place] [address], [address], 08/19/2024 07:36:26 08/18/20 24 08/19/2024 LIPID PANEL WITH RATIO S triglyceride s 127 mg/dL <150 normal Not Available [address] [address] [place], [address], 08/19/2024 07:36:26 08/18/2008/19/2024 LIPID PANEL WITH RATIO [...] on.Christine sandss. com/f aq/FA Q164) Not Available [address] [address] [place], [address], 08/19/2024 07:36:26 08/18/20 24 08/19/2024 LIPID PANEL WITH RATIO S chol/HDLC ratio 3.1 (calc ) <5.0 normal Not Available [address] [address] [place], [address], 08/19/2024 07:36:26 08/18/20 24 08/19/2024 LIPID PANEL WITH RATIO S LDL/HDL ratio 1.6 (calc ) Below avera ge Risk: <2.34 [place] ge Risk: 2.35- 4.12 Moder ate Risk: 4.13- 5.56 High Risk: >5.57 Not Available [address], [address], 08/19/2024 07:36:26 08/18/20 24 08/19/2024 LIPID PANEL WITH RATIO S non HDL cholesterol 84 mg/dL _(carol c) <130 normal For patie nts with diabe natalia plus 1 major ASCVD risk facto r, treat ing to a non-H DL-C goal of <100 mg/dL (LDL- C of <70 mg/dL ) is thangi toshia a ward peuti c optio n. Not Available [address] [address] [place], [address], 08/19/2024 07:36:26 08/18/20 24 08/19/2024 COMPR EHENS ANALY METAB OLIC PANEL glucose 81 mg/dL 65-99 normal Fasti ng refer ence inter mckenna Not Available [address] [address] [place], [address], 08/19/2024 07:36:27 08/18/20 24 08/19/2024 COMPR EHENS ANALY METAB OLIC PANEL urea nitrogen (BUN) 13 mg/dL 7-25 normal Not Available [address] [address] [place], [address], 08/19/2024 07:36:27 08/18/20 24 08/19/2024 COMPR EHENS ANALY METAB OLIC PANEL creatinine 0.56 mg/dL 0.50-1 .05 normal Not Available [address], [address], 08/19/2024 07:36:27 08/18/20 24 08/19/2024 COMPR EHENS ANALY METAB OLIC PANEL eGFR 104 mL/mi n/1.7 3m2 > or = 60 normal Not Available [address] [place], [address], 08/19/2024 07:36:27 08/18/2008/19/2024 COMPR EHENS ANALY METAB OLIC PANEL BUN/creatini ne ratio SEE NOTE: (calc ) 6-22 Not Repor villa: BUN and Creat inine are withi n refer ence range . Not Available [address] [address] [place], [address], 08/19/2024 07:36:27 08/18/2008/19/2024 COMPR EHENS ANALY METAB OLIC PANEL sodium 143 mmol/ L 135-14 6 normal Not Available [address], [address], 08/19/2024 07:36:27 08/18/2008/19/2024 COMPR EHENS ANALY METAB OLIC PANEL potassium 3.8 mmol/ L 3.5-5. 3 normal Not Available [address] [address] [place], [address], 08/19/2024 07:36:27 08/18/2008/19/2024 COMPR EHENS ANALY METAB OLIC PANEL chloride 103 mmol/ L 98-110 normal Not Available [address] [address] [place], [address], 08/19/2024 07:36:27 08/18/2008/19/2024 COMPR EHENS ANALY METAB OLIC PANEL carbon dioxide 33 mmol/ L 20-32 high Not Available [address] [address] [place], [address], 08/19/2024 07:36:27 08/18/2008/19/2024 COMPR EHENS ANALY METAB OLIC PANEL calcium 9.7 mg/dL 8.6-10 .4 normal Not Available [address] [address] [place], [address], 08/19/2024 07:36:27 08/18/20 24 08/19/2024 COMPR EHENS ANALY METAB OLIC PANEL protein, total 6.8 g/dL 6.1-8. 1 normal Not Available [address], [address], 08/19/2024 07:36:27 08/18/20 24 08/19/2024 COMPR EHENS ANALY METAB OLIC PANEL albumin 4.3 g/dL 3.6-5. 1 normal Not Available [address], [address], 08/19/2024 07:36:27 08/18/2008/19/2024 COMPR EHENS ANALY METAB OLIC PANEL globulin 2.5 g/dL_ (calc ) 1.9-3. 7 normal Not Available [address], [address], 08/19/2024 07:36:27 08/18/20 24 08/19/2024 COMPR EHENS ANALY METAB OLIC PANEL albumin/glob ulin ratio 1.7 (calc ) 1.0-2. 5 normal Not Available [address], [address], 08/19/2024 07:36:27 08/18/20 24 08/19/2024 COMPR EHENS ANALY METAB OLIC PANEL bilirubin, total 0.5 mg/dL 0.2-1. 2 normal Not Available [address], [address], 08/19/2024 07:36:27 08/18/20 24 08/19/2024 COMPR EHENS ANALY METAB OLIC PANEL alkaline phosphatase 101 U/L 37-153 normal Not Available [address], [address], 08/19/2024 07:36:27 10/14/20 24 08/19/2024 COMPR EHENS ANALY METAB OLIC PANEL AST 20 U/L 10-35 normal Not Available [facility] [address] [address], [place], [address], 08/19/2024 07:36:27 08/18/20 24 08/19/2024 COMPR EHENS ANALY METAB OLIC PANEL ALT 21 U/L 6-29 normal Not Available [facility] [address] [address], [place], [address], 08/19/2024 07:36:27 08/18/20 24 08/19/2024 HEMOG LOBIN [...] Diabe natalia(A DA). Not Available [facility] [address] [address], [place], [address], 08/19/2024 07:36:27 07/21/20 22 07/20/2022 XR, chest , 2 view No observ ation record ed. [id number] [facility] [address] [place] [address] [address], [place], [address], 01/03/2023 05:06:32 08/09/20 22 08/04/2022 US, echoc ardio gram, trans thora cic, compl ete, w/ color flow No observ ation record ed. [id number] [facility] [address], [place], [address], 01/03/2023 05:06:32 09/14/20 22 08/21/2022 sandie r monit or No observ ation record ed. [id number] [facility] [address], [place], [address], 01/03/2023 05:06:32 10/27/20 22 09/13/2022 sandie r monit or No observ ation record ed. [id number] Not Available 01/03/2023 05:06:32 11/12/19 24 11/06/2023 MAMMO , scree frank, digit al, bilat eral No observ ation record ed. [email or web address] [facility] [address], [place], [address], 11/13/2023 12:16:10 Result Notes None recorded. Problems Name Problem SNOMED Code Status Onset Date Resolution Date Notes Provider Name and Address Organization Details Recorded Time Gastroesop hageal reflux disease without esophagiti s 702117947 Active 2022 KARLOS Sevilla [address], [email or web address], [place], [address] , [employer] 3 12:36:00 Acute upper respirator y infection 60339440 Active 2022 KARLOS Sevilla [address], [place], [address] , [employer] 3 13:14:15 Impaired fasting glycemia 558020540 Active 2022 KARLOS Sevilla [email or web address], [address], [place], [address] , [employer] 3 11:26:20 Mixed hyperlipid emia 044574503 Active 2022 KARLOS Sevilla [address] [facility], [address] [address], [place], [address] , [facility] 3 11:26:31 Decreased hearing 372213958 Active 2021 Not Available [employer] 3 04:52:46 Acute bronchitis 08712600 Active 2021 Not Available [employer] 3 04:52:46 Disorder of left tympanic membrane 1177338067311 105 Active 2021 Not Available [facility] 3 04:52:46 Pre-surger y evaluation Active 2021 Not Available [facility] 3 04:52:46 Benign essential hypertensi on 1534300 Active 2021 Not Available [facility] 3 04:52:47 Fluttering heart 368744846 Active 2021 Not Available [facility] 3 04:52:47 Abnormal urinalysis 713913912 Active 2021 Not Available [employer] 3 04:52:47 Mixed anxiety and depressive disorder 300915775 Active 2018 Not Available [employer] 3 04:52:47 Acute fungal otitis externa 466900438 Active 2021 Not Available [facility] 3 04:52:47 Hypothyroi dism due to Stephanie' s thyroiditi s 651362236 Active 2018 Not Available [employer] 3 04:52:47 Ventricula r premature complex 587257994 Active 2021 Not Available [facility] 3 04:52:47 Premature atrial contractio n 015767129 Active 2021 Not Available [facility] 3 04:52:47 Otitis externa 5010100 Active 2021 Not Available [facility] 3 04:52:47 Vitamin D deficiency 91961453 Active 2019 Not Available [facility] 3 04:52:47 Diastolic dysfunctio n 4001145 Active 2021 Not Available [facility] 3 04:52:48 Depressive disorder 74559513 Active 2019 Not Available [facility] 3 04:52:48 Migraine 16051432 Active 2019 Not Available [facility] 3 04:52:48 Hypertensi ve disorder 51143033 Active 2019 Not Available [facility] 3 04:52:48 Left ventricula r diastolic dysfunctio n 847213218 Active 2021 Not Available [facility] 3 04:52:48 Hypothyroi dism 63195060 Active 2019 Not Available [facility] 3 04:52:48 Postviral cough 226243317 Active 2021 Not Available [facility] 3 04:52:48 Anxiety 95456729 Active 2019 Not Available [facility] 3 04:52:48 Parkinson' s disease 20576025 Active 2019 Not Available [facility] 3 04:52:48 Cough 72144402 Active 2021 Not Available [facility] 3 04:52:49 Upper respirator y infection 07113135 Active 2021 Not Available [facility] 3 04:52:49 Hyperlipid emia 22371058 Active 2019 Not Available [facility] 3 04:52:49 Essential hypertensi on 88776302 Active 2019 Not Available [facility] 3 04:52:49 Obstructiv e sleep apnea syndrome 55699963 Active 2018 Not Available [facility] 3 04:52:49 COVID-19 788553819 Active 2021 Not Available [facility] 3 04:52:49 Heart murmur 12213983 Active 2021 Not Available [facility] 3 04:52:50 Problem Notes None recorded. Procedures Surgical History Date Name Laterality Status Provider Name and Address Organization Details Recorded Time 01/04/20 Knee Replacement completed Not Available [facility] 01/03/2023 04:43:13 09/27/20 20 Most Recent Bone Density completed Not Available [facility] 01/03/2023 04:43:09 09/21/20 20 Date of Last Colonoscopy completed Not Available [facility] 01/03/2023 04:43:09 09/21/20 20 colonoscopy completed Not Available [facility] 01/03/2023 04:43:13 Knee Surgery completed Not Available [facility] 01/03/2023 04:43:13 Tonsillectomy completed Not Available [facility] 01/03/2023 04:43:13 Cholecystectomy completed Not Available [facility] 01/03/2023 04:43:13 Sinus Surgery completed Not Available [facility] 01/03/2023 04:43:13 Imaging Results None recorded. Procedure Notes None recorded. Medical Equipment None Reported. Allergies Allergen ID Allergen Name Allergen Category Reaction Reaction Severity Criticality Documentation Date Start Date Code Code System Note Provider Name and Address Organization Details Recorded Time 8636 Substance with sulfonami de structure and antibacte rial mechanism of action (substanc e) medicatio n Not available Not available Not available 01/03/2023 69159 8003 SNOMED Not Available [facility] 3 05:06:02 8638 Product containin g penicilli n (product) medicatio n Not available Not available Not available 01/03/2023 19496 8001 SNOMED Not Available [facility] 3 05:06:02 8639 codeine medicatio n Not available Not available Not available 01/03/2023 2670 RxNorm Not Available [facility] 3 05:06:02 Medications Name Sig Start Date [...] HOURS NEEDED FOR PAIN FOR 7 DAYS 03/04 completed Not Available Not Available Not [...] Available Not Available Not Available [employer]ix Quad 0985-6651 (PF) 60 mcg (15 mcg x 4)/0.5 [...] Available No t Available Vitals Date Recorded Systolic blood pressure Diastolic blood pressure Provider Name and Address Organization Details Last Updated DateTime 04/25/2023 110 mm[Hg] 80 mm[Hg] KARLOS Sevilla [address] [place] [address], [facility] [address], [place], [address], [facility] [employer] [facility] 04/25/2023 12:54:07 Date Recorded Body height Body temperature Body mass index (BMI) Body weight Respiratory rate Oxygen saturation Oxygen saturation in Arterial blood by Pulse oximetry Heart rate Systolic blood pressure Diastolic blood pressure Provider Name and Address Organization Details Last Updated DateTime 3 170.18 cm 96.5 [degF] 41 kg/m2 558907. 2 g 16 /min 97 % 97 % 63 /min 122 mm[Hg] 80 mm[Hg] JONATAN Cash [facility] [employer] [facility] 3 12:30:19 Date Recorded Body height Oxygen saturation Oxygen saturation in Arterial blood by Pulse oximetry Heart rate Respiratory rate Body temperature Systolic blood pressure Diastolic blood pressure Provider Name and Address Organization Details Last Updated DateTime 2 170.18 cm 96 % 96 % 69 /min 16 /min 97.4 [degF] 132 mm[Hg] 88 mm[Hg] Not Available [facility] 3 04:49:54 Date Recorded Body height Oxygen saturation Oxygen saturation in Arterial blood by Pulse oximetry Heart rate Body temperature Systolic blood pressure Diastolic blood pressure Provider Name and Address Organization Details Last Updated DateTime 2 170.18 cm 98 % 98 % 68 /min 96.9 [degF] 126 mm[Hg] 86 mm[Hg] Not Available [facility] 3 04:49:54 Date Recorded Body mass index (BMI) Body height Oxygen saturation Oxygen saturation in Arterial blood by Pulse oximetry Heart rate Body temperature Body weight Systolic blood pressure Diastolic blood pressure Provider Name and Address Organization Details Last Updated DateTime 2 41.3 kg/m2 170.18 cm 96 % 96 % 69 /min 97.4 [degF] 253036. 39 g 140 mm[Hg] 90 mm[Hg] Not Available [facility] 3 04:49:55 Date Recorded Body height Body mass index (BMI) Body weight Respiratory rate Heart rate Systolic blood pressure Diastolic blood pressure Provider Name and Address Organization Details Last Updated DateTime 3 170.18 cm 40.7 kg/m2 276292. 02 g 16 /min 69 /min 120 mm[Hg] 72 mm[Hg] JONATAN Cash [place] [facility] [place] [employer] [facility] 3 11:00:29 Social History Question Answer Notes LastModified by Barnacleizat ion Details LastModified Time Tobacco Smoking Status Never Smoker Not Available [facility] 01/03/2023 04:41:59 Do You Have An Advance Directive? No [id number] Information not available 01/03/2023 What Is Your Level Of Caffeine Consumption? Occasional MIGRATION.[id number] 0125 Information not available 01/03/2023 How Much Tobacco Do You Chew? None MIGRATION.594880 9887 Information not available 01/03/2023 In The 14 Days Before Symptom Onset, Have You Had Close Contact With A Laboratory-confirm ed COVID-19 While That Case Was Ill? No MIGRATION.563264 8441 Information not available 01/03/2023 In The 14 Days Before Symptom Onset, Have You Had Close Contact With A Person Who Is Under Investigation For COVID-19 While That Person Was Ill? No MIGRATION.471149 4918 Information not available 01/03/2023 What Type Of Diet Are You Following? REGULAR MIGRATION.921273 7590 Information not available 01/03/2023 Which Illicit Or Recreational Drugs Have You Used? None MIGRATION.790662 3259 Information not available 01/03/2023 Have There Been Any Changes To Your Family Or Social Situation? No MIGRATION.250319 5426 Information not available 01/03/2023 Do You Use Insect Repellent Routinely? No MIGRATION.257550 5296 Information not available 01/03/2023 Do You Have A Medical Power Of Potline Monitor? No MIGRATION.848596 6182 Information not available 01/03/2023 What Is Your Relationship Status? MIGRATION.047051 7360 Information not available 01/03/2023 Do You Use Your Seat Belt Or Car Seat Routinely? Yes MIGRATION.730036 1431 Information not available 01/03/2023 Do You Have Smoke And Carbon Monoxide Detectors In Your Home? Yes MIGRATION.929262 0363 Information not available 01/03/2023 How Much Tobacco Do You Smoke? No MIGRATION.670356 6452 Information not available 01/03/2023 Do You Use Sunscreen Routinely? Yes MIGRATION.360969 8379 Information not available 01/03/2023 Have You Recently Traveled Abroad? No MIGRATION.705120 3106 Information not available 01/03/2023 Do You Have Any Dietary Restrictions? No MIGRATION.112546 7138 Information not available 01/03/2023 Sex: Female Functional Status Question Answer Note LastModified by Organizat ion Details LastModified Time Do you use any illicit or recreational drugs? No MIGRATION.964250 4165 Information not available 01/03/2023 Do you or have you ever used any other forms of tobacco or nicotine? No MIGRATION.078465 4283 Information not available 01/03/2023 What is your level of alcohol consumption? None MIGRATION.954491 5998 Information not available 01/03/2023 Do you or have you ever used smokeless tobacco? Never used smokeless tobacco MIGRATION.467058 5849 Information not available 01/03/2023 Do you or have you ever used e-cigarettes or vape? Never used electronic cigarettes MIGRATION.917460 6185 Information not available 01/03/2023 What is your exercise level? Moderate MIGRATION.263138 0521 Information not available 01/03/2023 Mental Status None recorded. Family History Relationship Description Onset Age of this Age Resolved Age Notes LastModified by Organization Details LastModified Time Father Hypothyroidi sm [email or web address] Not available 2022 10:53:03 Father Chronic obstructive pulmonary disease [email or web address] Not available 2022 10:53:03 Father Hypertensive disorder MIGRATION.277 [id number] Not available 01/03/2023 04:43:21 Father Heart disease MIGRATION.376 1933143 Not available 01/03/2023 04:43:21 Mother Hypothyroidi sm [email or web address] Not available 2022 10:53:03 Mother Hypertensive disorder MIGRATION.970 [id number] Not available 01/03/2023 04:43:21 Paternal Grandfather Diabetes mellitus MIGRATION.749 [id number] Not available 01/03/2023 04:43:21 Medical History Condition Response HIGH CHOLESTEROL / HYPERLIPIDEMIA Y HAVE YOU BEEN HOSPITALIZED OR SEEN IN [facility] ER IN THE PAST YEAR ? Y THYROID DISEASE Y SLEEP DISORDER Y HEADACHES/MIGRAINES Y DIZZINESS Y HYPERTENSION Y ANXIETY DISORDER Y Gynecological History Statement/Question Response Date of [...] dose or 50 mcg/0.25mL dose 3 completed AVI [place], [facility] [employer] 08/21/2023 09:20:46 influenza, unspecified formulation 3 completed Soledad Andujar MA null, [employer] [facility] [employer] 08/21/2023 12:48:17 Influenza, split virus, quadrivalent, preservative 9 completed Not Available [facility] 01/03/2023 05:05:52 Influenza, split virus, quadrivalent, preservative 0 completed Not Available [facility] 01/03/2023 05:05:52 Past Encounters Encounter ID Performer Location Encounter Start Date Encounter Closed Date Diagnosis/Indication Diagnosis SNOMED-CT Code Diagnosis ICD10 Code Diagnosis Note [id number] Shahla Smith MD [facility] [place] [address] [place] [address] 03/04/2021 00:00:00 03/04/2021 11:36:08 [id number] KARLOS Sevilla [facility] [place] [address] [place] [address] 03/22/2021 00:00:00 04/01/2021 19:08:50 [id number] Shahla Smith MD [facility] [place] [address] [place] [address] 08/23/2021 00:00:00 08/23/2021 12:38:33 [id number] KARLOS Sevilla [facility] [place] [address] [place] [address] 09/27/2021 00:00:00 10/02/2021 14:09:09 [id number] KARLOS Sevilla [facility] [place] [address] [place] [address] 12/30/2021 00:00:00 12/30/2021 16:20:09 [id number] Shahla Smith MD [facility] [place] [address] [place] [address] 03/13/2022 00:00:00 03/13/2022 11:26:11 [id number] Adrien Salazar MD [facility] [place] [address] [place] [address] 03/28/2022 00:00:00 04/03/2022 16:18:48 [id number] KARLOS Sevilla [facility] [place] [address] [place] [address] 07/18/2022 00:00:00 08/03/2022 20:10:40 [id number] KARLOS Sevilla [facility] [place] [address] [place] [address] 08/15/2022 00:00:00 09/03/2022 14:51:28 [id number] KARLOS Sevilla [facility] [place] [address] [place] [address] 09/26/2022 00:00:00 10/03/2022 21:16:08 [id number] [address] Smith [address] [facility] [place] [address] [place] [address] 10/19/2022 00:00:00 10/19/2022 13:39:[id number] [facility] [place] [address] [place] [address] 04/25/2023 12:21:43 04/25/2023 12:57:10 Adult health examination 370371388 Z00.01 annual wellness completed Hyperlipidemia 29207580 E78.5 stable on crestor 20mg daily. Mixed anxi ety and depressive disorder 779906313 F41.8 stable on sertraline 200mg daily. 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 follows with Endo Benign ess ential hypertension 8704601 I10 stable on medication s Parkinson's disease 4904 9000 G20 stable on recent adjustment s by Neurology on her carbidopa levodopa Long-term drug therapy 131846175 Z79.899 CBC needed on next lab draw Gastroesop hageal reflux disease without esophagitis 609510130 K21.9 stable on PPI therapy Diastolic dysfunction 35 09051 I51.9 on Diltiazem CD 240mg daily. [id number] KARLOS Sevilla [facility] [place] [address] [place] [address] 10/25/2023 10:52:31 10/25/2023 11:29:36 Hyperlipidemia 20328863 E78.5 stable on crestor 20mg daily. Mixed anxi ety and depressive disorder 749529455 F41.8 stable on sertraline 200mg daily. 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 follows with Endo in past. this office will take over management since her Endocrine left. due for TFTs Benign ess ential hypertension 9436374 I10 stable on medication s Parkinson's disease 4904 9000 G20.A1 stable on recent adjustment s by Neurology on her carbidopa levodopa Diastolic dysfunction 35 29168 I51.9 on Diltiazem CD 240mg daily. Gastroesop hageal reflux disease without esophagitis 695330440 K21.9 stable on PPI therapy Long-term drug therapy 056973730 Z79.899 cmp lab due Impaired f asting glycemia 612420091 R73.01 routine a1c and insulin Mixed hyperlipidemia 267 905515 E78.2 fasting lipids due and refill omega 3 fish oil Health Concerns Section Related Observation LastModified by Organization Detai ls LastModified Time None Recorded Concern Status LastModified by Organization Details LastModified Time None Recorded Advance Directives Directive N: Payers Encounter Date Sequence Insurance Name Policy Number Policy Haynes Covered Member ID Haynes Member ID Guarantor Name 04/25/2023 1 [place] [id number] Jeff Mosley [id number] Jaimie Mosley 10/25/2023 1 [place] [id number] Jeff Mosley [id number] Jaimie Mosley Notes Date Note Type Note Provider Name and Address Organization Details Recorded Time 022 text/h tml HypertensionReported bypatient.Duration:has noted for years; getting worse over the past week Onset/Timing:worse Alleviating Factors:medication Self Care:under emotional stress Associated Symptoms:no fatigue; no decline in exercise capacity; no snoring;shortness of breath;palpitationsNotes:Pt is here for a f/u. Not Available [facility] [employer] 09/03/2022 14:51:28 022 text/h tml Anxiety/DepressionReported bypatient.Severity:denies suicidal ideations; able to maintain [...] appetite good; energy good; no apathy; maintaining functionalityHyperlipidemiaReported bypatient.Duration:chronic Control:usually well controlled; improving; at goal Compliance:compliant; exercises;noncompliant with diet Complications:no coronary artery disease; no peripheral artery disease; no cardiovascular disease Risk Factors:hypertensionHypertensionRepor villa bypatient.Duration:has noted for years Onset/Timing:better Alleviating Factors:medication [...] work performace; no nasal congestion Not Available [facility] 10/03/2022 21:16:08 023 text/h tml Anxiety/DepressionReported bypatient.Quality:doesnt matter time of day Severity:denies [...] peripheral artery disease; no cardiovascular disease Risk Factors:hypertensionHypertensionRepor villa bypatient.Duration:has noted for years Onset/Timing:better Alleviating Factors:medication [...] performace; no nasal congestion Wellness KARLOS Sevilla [address] [place] [address], [address], [facility] 05/04/2023 19:04:34 023 text/h tml Anxiety/DepressionReported bypatient.Quality:doesnt matter time of day Severity:denies [...] peripheral artery disease; no cardiovascular disease Risk Factors:hypertensionHypertensionRepor villa bypatient.Duration:has noted for years Onset/Timing:better Alleviating Factors:medication [...] work performace; no nasal congestion KARLOS Sevilla [address] [facility], [facility] [address], [place], [address], [place] [facility] 10/30/2023 17:45:09 OBGyn Episode No OBEpisode recorded.
--- OUTSIDE RECORDS SUMMARY | 2025-04-15 16:53 | XMS_ITS | Patient Health Record ---
Author Organization [facility] Address [address] [place], [place] [id number] Care Team Providers Care Clean Room Technician Name Role Phone Debra Villanueva Unavailable Unavailable Allergies Allergen (clinical drug ingredient) Drug/Non Drug Allergy documented on EMR Reaction Allergy Type Onset Date Status codeine Codeine Unknown Drug Allergy Active Penicillin Unknown Drug Allergy Active sulfacetamide Sulfacetamide Unknown Drug Allergy Active Reason For Referral No Information Medications Medication SIG (Take, Route, Frequency, Duration) Notes Start Date End Date Status Diltiazem CD Active Crestor Active hydroCHLOROthiazide 25 MG 1 tablet in th e morning Orally Once a day Active Flonase Active Rasagiline Mesylate 1 MG 1 tablet Orally Once a day Active Vitamin D Active Meloxicam 15 MG 1 tablet Orally Once a day for 30 day(s) Active Rogerson 3 Active Omeprazole 20 MG 1 capsule 30 minutes before morning meal Orally Once a day Active Levothyroxine Sodium Active Zoloft Active Carbidopa-Levodopa ER 50-200 MG 1 tablet as needed Orally Two times a Week Active Carbidopa-Levodopa A ctive Social History Tobacco Use: Social History Observation Description Date Details (start date - stop date) Never Smoker NA - NA Tobacco Use/Smoking Question Answer Notes Tobacco use: nonsmoker Plan Of Treatment No Information Insurance Providers Payer Name Payer Address Payer Phone Subscriber Number Group Number Insured Name Patient Relationship to Insured Coverage Start Date Coverage End Date [facility] ([facility] ATTN CLAIMS [address] [place] [address] [id number] [employer], RIRI Self - patient is the insured Medical (General) History Medical History History ICD Code artificial joint GERD Leg/Feet cramps Sleep apnea Thyroid Disease Psychiatric Disorder hypertension Surgical History Surgery Date(Month/Year) Gallbladder 2010 Knee repair, left 2019 Knee repair, left 2020 Knee replacement, left 01/2022
--- OUTSIDE RECORDS SUMMARY | 2025-04-15 16:53 | XMS_ITS | Data Portability ---
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 Reyna Eye exam UTD. [facility] Dental exam: UTD: [facility] Pap smear Oct 2023, Dr. Ritesh Not available 04/22/2024 11:38:38 10/16/2024 10/16/2024 Mammogram november 2023 all clear colonoscopy due in 2024, Dr. Reyna Eye exam UTD. [facility] Dental exam: UTD: [facility] Pap smear Oct 2023, Dr. Ritesh Not available 10/16/2024 11:35:59 03/10/2025 03/10/2025 Mammogram November 2024. colonoscopy due in 2024, Dr. Reyna last one scheduled for july 2025. Eye exam UTD. [facility] Dental exam: UTD: [facility] Pap smear Oct 2023, Dr. Ritesh [email or web address] Not available 03/10/2025 11:29:22 Plan of Treatment Reminders Order Date Submit Date Provider Last Modified By Organization Details Last Modified Time Details Appointments ANY 15 2024 10:00A M KARLOS Seivlla Not available Not available Not available Lab vitamin D, 25-hydro xy, total, serum 2024 025 [email or web address] [facility], [address], [place], [address], 03/10/2025 11:33:47 HbA1c (hemoglo bin A1c), blood 2024 025 [email or web address] [facility], [address], [address], [place], [address], 03/10/2025 11:33:47 vitamin B12 + folate, serum or blood 2024 025 [email or web address] [facility], [address], [address], [place], [address], 03/10/2025 11:33:47 CBC w/ auto diff 2024 025 [email or web address] [facility], [address], [address], [place], [address], 03/10/2025 11:33:47 CMP, serum or plasma 2024 025 [email or web address] [facility], [address], [address], [place], [address], 03/10/2025 11:33:47 lipid panel, serum 2024 025 [email or web address] [facility], [address], [address], [place], [address], 03/10/2025 11:33:47 TSH + free T4, serum 2024 025 [email or web address] [facility], [address], [address], [place], [address], 03/10/2025 11:33:47 vitamin D, 25-hydro xy, total, serum 2023 025 [email or web address] [facility], [address], [address], [place], [address], 03/11/2025 09:17:51 HbA1c (hemoglo bin A1c), blood 2023 025 ÁNGEL [employer] [facility], [address], [address], [place], [address], 03/11/2025 09:17:24 vitamin B12 + folate, serum or blood 2023 025 [employer] [facility], [address], [address], [place], [address], 03/11/2025 09:17:33 CBC w/ auto diff 2023 025 [employer] [facility], [address], [place], [address], 03/11/2025 09:17:39 CMP, serum or plasma 2023 025 [employer] [facility], [address], [address], [place], [address], 03/11/2025 09:17:45 lipid panel, serum 2023 025 [employer] [facility], [address], [address], [place], [address], 03/11/2025 09:18:03 TSH + free T4, serum 2023 025 [employer] [facility], [address], [address], [place], [address], 03/11/2025 09:17:57 vitamin D, 25-hydro xy, total, serum 2023 024 [employer] [facility], [address], [place], [address], 05/16/2024 15:52:57 HbA1c (hemoglo bin A1c), blood 2023 024 [employer] [facility], [address], [place], [address], 05/16/2024 15:52:57 HbA1c (hemoglo bin A1c), blood 2023 024 [facility] [employer] [facility], [address], [address], [place], [address], 12/03/2024 12:16:28 vitamin B12 + folate, serum or blood 2023 024 [facility], [address], [address], [place], [address], 05/16/2024 15:52:57 CBC w/ auto diff 2023 024 [facility], [address], [address], [place], [address], 05/16/2024 15:52:57 CMP, serum or plasma 2023 024 [facility], [address], [address], [place], [address], 05/16/2024 15:52:57 CMP, serum or plasma 2023 024 [employer] [facility], [address], [address], [place], [address], 09/15/2024 08:52:22 TSH + free T4, serum 2023 024 [facility], [address], [address], [place], [address], 05/16/2024 15:52:57 TSH + free T4, serum 2023 024 [employer] [facility], [address], [address] [place], [place], [address], 09/15/2024 08:52:22 lipid panel, serum 2023 024 [employer] [facility], [address], [place], [address], 05/16/2024 15:52:56 lipid panel, serum 2023 024 [facility], [address], [place], [address], 09/15/2024 08:52:22 Referral None recorded . Procedures None recorded . Surgeries None recorded . Imaging None recorded . Medication Orders Linzess 145 mcg capsule [address] [facility] [address] [place], [address], 10/16/2024 11:45:58 Patient TargetsNo targets recorded. Patient Instructions Encounter Date Encounter Id Patient Instructions Last Modified By Organization Details Last Modified Time 04/22/2024 [id number] A healthy lifestyle: care instructions Not available 05/09/2024 12:40:53 10/16/2024 [id number] A healthy lifestyle: care instructions Not available 10/16/2024 11:37:39 03/10/2025 [id number] A healthy lifestyle: care instructions Not available 03/30/2025 00:02:52 Reason for Referral None Reported. Results Created Date Observation Date Name Description Value Unit Range Abnormal Flag Note LastModifiedBy Organization Detail LastModifiedTime 08/18/2008/19/2024 Hemog lobin A1c/H emogl obin. total in Blood hemoglobin A1C/hemoglob in.total in blood text: <5.7 hemog lobin A1C Not Available Not Available 03/11/2025 09:39:19 08/18/20 24 08/19/2024 Compr ehens mima metab olic 2000 panel - Serum or Plasm a glucose [mass/volume ] in serum or plasma text: 65-99 gluco se Not Available Not Available 03/11/2025 09:39:19 08/18/20 24 08/19/2024 Compr ehens mima metab olic 2000 panel - Serum or Plasm a urea nitrogen [mass/volume ] in serum or plasma text: 7-25 urea nitro gen (BUN) Not Available Not Available 03/11/2025 09:39:19 08/18/2008/19/2024 Compr [employer] mima metab olic 1999 panel - Serum or Plasm a creatinine [mass/volume ] in serum or plasma text: 0.50-1 .05 creat inine Not Available Not Available 03/11/2025 09:39:19 08/18/2008/19/2024 Compr [employer] mima metab olic 2000 panel - Serum or Plasm a glomerular filtration rate [volume rate/area] in serum, plasma or blood by creatinine-b ased formula (CKD-epi 2020)/1.73 sq M text: > or = 60 eGFR Not Available Not Available 03/11/2025 09:39:19 08/18/2008/19/2024 Compr [employer] mima metab olic 2000 panel - Serum or Plasm a urea nitrogen/cre atinine [mass ratio] in serum or plasma SEE NOTE: text: 6-22 BUN/c reati nine ratio Not Available Not Available 03/11/2025 09:39:19 08/18/2008/19/2024 Compr [employer] mima metab olic 2000 panel - Serum or Plasm a sodium [moles/volum e] in serum or plasma text: 135-14 6 sodiu m Not Available Not Available 03/11/2025 09:39:19 08/18/2008/19/2024 Compr [employer] mima metab olic 2000 panel - Serum or Plasm a potassium [moles/volum e] in serum or plasma text: 3.5-5. 3 potas sium Not Available Not Available 03/11/2025 09:39:19 08/18/2008/19/2024 Compr [employer] mima metab olic 2000 panel - Serum or Plasm a chloride [moles/volum e] in serum or plasma text: 98-110 chlor [place] Not Available Not Available 03/11/2025 09:39:19 08/18/2008/19/2024 Compr [employer] mima metab olic 2000 panel - Serum or Plasm a carbon dioxide, total [moles/volum e] in serum or plasma text: 20-32 high carbo n dioxi de Not Available Not Available 03/11/2025 09:39:19 08/18/2008/19/2024 [facility] [employer] mima [employer] olic 1999 panel - Serum or Plasm a calcium [mass/volume ] in serum or plasma text: 8.6-10 .4 calci um Not Available Not Available 03/11/2025 09:39:19 08/18/2008/19/2024 [facility] [employer] mima [employer] 1999 panel - Serum or Plasm a protein [mass/volume ] in serum or plasma text: 6.1-8. 1 prote in, total Not Available Not Available 03/11/2025 09:39:19 08/18/2008/19/2024 [facility] [employer] mima [employer] 1999 panel - Serum or Plasm a albumin [mass/volume ] in serum or plasma text: 3.6-5. 1 album in Not Available Not Available 03/11/2025 09:39:19 08/18/2008/19/2024 [facility] [employer] 1999 panel - Serum or Plasm a globulin [mass/volume ] in serum by calculation text: 1.9-3. 7 globu harjit Not Available Not Available 03/11/2025 09:39:19 08/18/2008/19/2024 [facility] [employer] mima [employer] 1999 panel - Serum or Plasm a albumin/glob ulin [mass ratio] in serum or plasma text: 1.0-2. 5 album in/gl obuli n ratio Not Available Not Available 03/11/2025 09:39:19 08/18/2008/19/2024 [facility] [employer] mima [employer] olic 1999 panel - Serum or Plasm a bilirubin.to kobe [mass/volume ] in serum or plasma text: 0.2-1. 2 bilir ubin, total Not Available Not Available 03/11/2025 09:39:19 08/18/2008/19/2024 [facility] [employer]pri[employer] olic 1999 panel - Serum or Plasm a alkaline phosphatase [enzymatic activity/vol ume] in serum or plasma text: 37-153 alkal ine phosp hatas e Not Available Not Available 03/11/2025 09:39:19 08/18/20 24 08/19/2024 [facility] [employer] mima [employer] olic 1999 panel - Serum or Plasm a aspartate aminotransfe rase [enzymatic activity/vol ume] in serum or plasma text: 10-35 AST Not Available Not Available 03/11/2025 09:39:19 08/18/2008/19/2024 Compr ehens mima metab olic 1999 panel - Serum or Plasm a alanine aminotransfe rase [enzymatic activity/vol ume] in serum or plasma text: 6-29 ALT Not Available Not Available 03/11/2025 09:39:19 08/18/2008/19/2024 [employer] 1995 panel - Serum or Plasm a cholesterol [mass/volume ] in serum or plasma text: <200 natalie stero l, total Not Available Not Available 03/11/2025 09:39:19 08/18/2008/19/2024 Lipid 1996 panel - Serum or Plasm a cholesterol in HDL [mass/volume ] in serum or plasma text: > or = 50 low HDL natalie stero l Not Available Not Available 03/11/2025 09:39:19 08/18/2008/19/2024 Lipid 1996 panel - Serum or Plasm a triglyceride [mass/volume ] in serum or plasma text: <150 trigl yceri lilia Not Available Not Available 03/11/2025 09:39:19 08/18/2008/19/2024 Lipid 1996 panel - Serum or Plasm a cholesterol in LDL [mass/volume ] in serum or plasma by calculation LDL-c holes terol Not Available Not Available 03/11/2025 09:39:19 08/18/2008/19/2024 Lipid 1996 panel - Serum or Plasm a cholesterol. total/choles terol in HDL [mass ratio] in serum or plasma text: <5.0 chol/ HDLC ratio Not Available Not Available 03/11/2025 09:39:19 08/18/2008/19/2024 Lipid 1996 panel - Serum or Plasm a cholesterol in LDL/choleste rol in HDL [mass ratio] in serum or plasma LDL/H DL ratio Not Available Not Available 03/11/2025 09:39:19 08/18/2008/19/2024 Lipid 1996 panel - Serum or Plasm a cholesterol non HDL [mass/volume ] in serum or plasma text: <130 non HDL natalie stero l Not Available Not Available 03/11/2025 09:39:19 08/18/2008/19/2024 Free T4 and TSH panel - Serum or Plasm a thyrotropin [units/volum e] in serum or plasma text: 0.40-4 .50 TSH Not Available Not Available 03/11/2025 09:39:19 08/18/20 24 08/19/2024 Free T4 and TSH panel - Serum or Plasm a thyroxine (T4) free [mass/volume ] in serum or plasma text: 0.8-1. 8 T4, free Not Available Not Available 03/11/2025 09:39:19 01/21/2001/22/2025 Skin Patho logy biops y repor t pathology report.secti on heading Dermat opatho logy Report Case: [id number] Author hua Chi er: Mirian Whiting DO Collec villa: 2024 10:55 AM Orderi ng Locati on: [facility] - Receiv ed: 2024 06:36 AM DermPa th Lab Pathol ogist: Lauren Philip MD Specim en: Skin, left upper arm Case Repor t [place] topat holog y Repor t Case: [id number] Autho daquan schneider Provi diane: Carlos Tinoco DO Colle cted: 01/20 10:55 AM Order ing Locat ion: [facility] - Recei arnoldo: 01/21 06:36 AM DermP ath Lab Patho logis t: Yudelka Philip in [place] MD Speci men: Skin, left upper arm 01/22 4:25 PM CDT [facility] Not Available Not Available 02/02/2025 12:03:08 01/21/20 25 01/22/2025 Skin Patho logy biops y repor t pathology report final diagnosis narrative Specim en A. 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 SKIN, left upper arm: PSORI ASIFO RM DERMA TITIS (L44. 8) (see micro scopi c descr iptio n and comme nt) 01/22 4:25 PM CDT [facility] Elect kiko monroy edd d by Yudelka Philip in [place] MD on 2024 at 4:25 PM Not Available Not Available 02/02/2025 12:03:08 01/21/20 25 01/22/2025 Skin Patho logy biops y repor t pathology report relevant history narrative ISK vs SCC Clini carol Histo ry ISK vs SCC 01/22 4:25 PM CDT [facility] Not Available Not Available 02/02/2025 12:03:08 01/21/20 25 01/22/2025 Skin Patho logy biops y repor t pathology report gross observation narrative Specim en A: Receiv ed is one formal in filled contai ner labele d with the patien t's name and design ated left upper arm. The specim en consis ts of a shave biopsy measur ing 7x6x1 mm. Jar 0. Gross Descr iptio n Speci men A: Recei arnoldo is one forma harjit fille d conta iner label ed with the patie nt's name and desig nated left upper arm. The speci men consi sts of a shave biops y measu ring 7x6x1 mm. Jar 0. 01/22 4:25 PM CDT [facility] Not Available Not Available 02/02/2025 12:03:08 01/21/20 25 01/22/2025 Skin Patho logy biops y repor t pathology report microscopic observation narrative other stain Specim en A. SKIN, left upper arm: There is psoria siform hyperp lasia of the epider mis with focal parake ratosi s and spongi osis. Intrae piderm al neutro phils are seen. There is a superf icial, mainly lympho histio cytic inflam matory infilt rate. Grocot t's methen amine silver (GMS) stain is negati ve for fungal elemen ts in the sectio ns examin ed. [place]-36 immuno stain demons trate focall y strong staini ng in the superf icial aspect of the epider mis. COMMEN T: If these histol ogic featur es repres ent a more locali zed proces s, the findin gs are consis tent with a psoria siform kerato sis. If they repres ent a more diffus e proces s, the histol ogical differ ential diagno sis includ es early / partia lly treate d psoria sis and less likely a chroni c eczema tous dermat itis. Micro scopi c Descr iptio n Speci men A. SKIN, left upper arm: There is psori asifo rm hyper plasi a of the epide rmis with focal parak erato sis and spong iosis . Intra epide rmal neutr ophil s are seen. There is a super ficia l, mainl y lymph ohist iocyt ic infla mmato ry infil trate . Groco tt's methe namin e silve r (GMS) stain is negat mima for funga l eleme nts in the secti ons exami emre. [place]-36 immun ostai n demon strat e focal ly stron g stain ing in the super ficia l aspec t of the epide rmis. COMME NT: If these histo logic featu res repre sent a more local ized proce ss, the findi ngs are consi stent with a psori asifo rm kerat osis. If they repre sent a more diffu se proce ss, the histo logic al diffe renti al diagn osis inclu lilia early / parti ally treat ed psori asis and less likel y a chron ic eczem atous derma titis . 01/22 4:25 PM CDT [facility] Not Available Not Available 02/02/2025 12:03:08 01/21/20 25 01/22/2025 Skin Patho logy biops y repor t service comment An news correspondent al and supply chain intern al positi ve and negati ve contro ls are approp riate for the histoc hemica l, immuno histoc hemica l and immuno fluore scence stain( s) in this case (if any), except where stated explic itly. The perfor shakir charac terist ics of the stain( s) cited in this report were develo ped and its perfor shakir charac terist ic determ ined by the Dermat opatho logy Elizabeth yang at [facility] sit, direct ed by Dr. Quan Mann . These tests need not be, and theref ore are not, approv ed by the [place] Food and Drug Admini strati on. The tests are used for clinic al purpos es. Billin g Codes Specim en Charge s Stain Charge s [id number] 1 1 Discl aimer An exter nal and inter nal posit mima and negat mima contr ols are appro priat e for the histo chemi carol, immun ohist ochem ical and immun ofluo resce nce stain (s) in this case (if any), excep t where state d expli citly . The perfo rmanc e laura cteri stics of the stain (s) cited in this repor t were devel oped and its perfo rmanc e laura cteri stic deter mined by the [place] [facility] at [facility] , direc villa by Dr. Quan Zelaya. These tests need not be, and there fore are not, appro arnoldo by the [facility] Food and Drug Admin istra tion. The tests are used for clini carol purpo ses. Rachid ng Codes Speci men Charg [place] St[place] Charg [place] [id number] 1 1 01/22 4:25 PM CDT [facility] Not Available Not Available 02/02/2025 12:03:08 01/21/20 25 01/22/2025 Skin Patho logy biops y repor t embedded images Embed ded Image s 01/22 4:25 PM CDT [facility] Not Available Not Available 02/02/2025 12:03:08 11/04/20 24 09/21/2020 colon oscop y scree [...] diane No observ ation record ed. [email or web address] [facility] [address], [place], [address], 11/25/2024 09:28:26 03/12/20 MAMMO , scree frank, digit al, bilat eral No observ ation record ed. [email or web address] Not Available 2024 16:55:15 Result Notes None recorded. Problems Name Problem SNOMED Code Status Onset Date Resolution Date Notes Provider Name and Address Organization Details Recorded Time Benign essential hypertension 5971086 Active 2023 KARLOS Sevilla Attn: Ubaldo g,[address] [facility], [place], [address], [facility] 4 12:35:45 Parkinson's disease 32636861 Active 2023 KARLOS Sevilla Attn: Accountin g,[address] [facility], [place], [address], [place] - [facility] 4 12:35:45 Hyperlipidemia 59512680 Active 2023 KARLOS Sevilla Attn: Accountin g,[address] [facility], [place], [address], [place] - [facility] 4 12:35:46 Hypothyroidism 08353244 Active 2023 KARLOS Sevilla Attn: Kevin g,[address] [facility], [place], [address], [place] - [facility] 4 12:35:48 Prediabetes 785956056 Active 2023 KARLOS Sevilla Attn: Accountin g,[address] [facility], [place], [address], [place] - [facility] 4 12:35:49 Vitamin D deficiency 76957454 Active 2023 KARLOS Sevilla Attn: Accountin g,[address] [facility], [place], [address], [place] - [facility] 4 12:35:50 Long-term drug therapy Active 2023 KARLOS Sevilla Attn: Accountin g,[address] [facility], [place], [address], [place] - [facility] 4 12:35:51 Mixed anxiety and depressive disorder 751407650 Active 2023 KARLOS Sevilla Attn: Accountin g,[address] [facility], [place], [address], [place] - [facility] 4 12:40:14 Obesity 353493112 Active 2023 KARLOS Sevilla Attn: Accountin g,[address] [facility], [place], [address], [place] - [facility] 4 12:40:51 Chronic constipation 808584840 Active 2023 KARLOS Sevilla Attn: Accountin g,[address] [facility], [place], [address], [place] - [facility] 4 11:46:20 Body mass index 30+ - obesity 681111437 Active 2024 Johnna Blood MA null, [place] - [facility] 5 11:10:47 Problem Notes None recorded. Procedures Surgical History Date Name Laterality Status Provider Name and Address Organization Details Recorded Time Joint Replacement completed Johnna Blood MA [place] [facility] 04/22/2024 11:44:45 Knee Surgery completed Johnna Blood [place] [facility] 04/22/2024 11:44:50 Tonsillectomy completed Johnna Blood MA [facility] 04/22/2024 11:44:55 Imaging Results None recorded. Procedure Notes None recorded. Medical Equipment None Reported. Allergies Allergen ID Allergen Name Allergen Category Reaction Reaction Severity Criticality Documentation Date Start Date Code Code System Note Provider Name and Address Organization Details Recorded Time 376647 Substance with sulfonami de structure and antibacte rial mechanism of action (substanc e) medicatio n Not available Not available Not available 04/22/2024 70709 8003 SNOMED ASHLEY Ward, [facility] 4 11:07:07 817837 Product containin g penicilli n (product) medicatio n Not available Not available Not available 04/22/2024 15997 [facility]001 [facility] Ward, [facility] 4 11:07:11 275862 codeine medicatio n Not available Not available Not available 04/22/2024 2670 RxNorm ASHLEY Ward, [facility] 4 11:07:17 Medications Name Sig Start Date Stop Date [...] Not Available doxycycline hyclate 50 mg capsule TAKE 1 CAPSULE BY MOUTH ONCE DAILY 03/10 completed Not Available Not Available Not Available carbidopa ER 50 mg-levodopa 200 mg [...] completed Not Available Not Available Not Available ropinirole 0.5 mg tablet TAKE 1 TABLET BY MOUTH AT BEDTIME active Not Available Not Available No t Available omeprazole 20 mg capsule,del ayed release [...] ailable Not Available rasagiline 1 mg tablet Take 1 tablet every day by oral route. active Not Available Not Available No t Available Tirosint 137 mcg capsule TAKE 1 CAPSULE BY MOUTH ONCE DAILY IN THE EVENING 04/22 completed Not Available Not Available Not Available Linzess 145 mcg capsule TAKE 1 CAPSULE BY MOUTH ONCE DAILY active Not Available Not Available No t Available Flonase Allergy Relief 50 mcg/actuati on nasal spray,suspe nsion [place] 1 spray every day by intranasa l route. active otc Not Available Not Available No t Available Vitals Date Recorded Systolic blood pressure Diastolic blood pressure Provider Name and Address Organization Details Last Updated DateTime 03/10/2025 130 mm[Hg] 80 mm[Hg] KARLOS Sevilla Attn: Accounting,[address] [facility], [place], [address], [place] - [facility] 03/10/2025 11:34:32 Date Recorded Body height Body mass index (BMI) Body weight Oxygen saturation Oxygen saturation in Arterial blood by Pulse oximetry Heart rate Respiratory rate Systolic blood pressure Diastolic blood pressure Provider Name and Address Organization Details Last Updated DateTime 170.18 cm 32.6 kg/m2 67646.2 1 g 98 % 98 % 60 /min 20 /min 140 mm[Hg] 80 mm[Hg] Johnna Blood MA [facility] 5 11:08:58 Date Recorded Systolic blood pressure Diastolic blood pressure Provider Name and Address Organization Details Last Updated DateTime 04/22/2024 140 mm[Hg] 80 mm[Hg] KARLOS Sevilla Attn: Accounting,[address] [place], [address], [facility] 04/22/2024 11:38:46 Date Recorded Body height Respiratory rate Body mass index (BMI) Body weight Oxygen saturation Oxygen saturation in Arterial blood by Pulse oximetry Heart rate Systolic blood pressure Diastolic blood pressure Systolic blood pressure Diastolic blood pressure Provider Name and Address Organization Details Last Updated DateTime 4 170.18 cm 20 /min 41.1 kg/m2 401548. 92 g 98 % 98 % 68 /min 142 mm[Hg] 88 mm[Hg] 132 mm[Hg] 78 mm[Hg] Johnna Blood MA [facility] 11:16:24 Date Recorded Systolic blood pressure Diastolic blood pressure Provider Name and Address Organization Details Last Updated DateTime 10/16/2024 130 mm[Hg] 82 mm[Hg] KARLOS Sevilla Attn: Accounting,[address] [place], [address], [facility] 10/16/2024 11:43:07 Date Recorded Body height Body mass index (BMI) Body weight Respiratory rate Oxygen saturation Oxygen saturation in Arterial blood by Pulse oximetry Heart rate Systolic blood pressure Diastolic blood pressure Provider Name and Address Organization Details Last Updated DateTime 4 170.18 cm 33 kg/m2 13520.9 9 g 20 /min 100 % 100 % 57 /min 130 mm[Hg] 82 mm[Hg] Johnna Blood MA [facility] 11:02:00 Social History Question Answer Notes LastModified by Organizat ion Details LastModified Time Tobacco Smoking Status Never Smoker Johnna Blood MA null, [facility] 04/22/2024 11:09:52 Do You Have An Advance Directive? Yes Information not available 04/22/2024 Are You Blind [...] Date Of Your Most Recent Tobacco Screening? 03/10/2025 Information not available 03/10/2025 Do You Use Your Seat Belt Or Car Seat Routinely? Yes Information not available 04/22/2024 Do You Have Smoke And Carbon Monoxide Detectors In Your Home? Yes Information not available 04/22/2024 Do You Use Sunscreen Routinely? Yes Information not available 04/22/2024 Has Tobacco Cessation Counseling Been Provided? Yes Information not available 04/22/2024 On What Date Was Tobacco Cessation Counseling Provided? 03/10/2025 Information not available 03/10/2025 Sex: Female Functional Status Question Answer Note LastModified by Organizat ion Details LastModified Time Do you use any illicit or recreational drugs? No Information not available 04/22/2024 Do you or have you ever used any other forms of tobacco or nicotine? No Information not available 04/22/2024 What is your level of alcohol consumption? None Information not available 04/22/2024 Are you able to care for yourself? Yes Information n ot available 04/22/2024 What is your exercise level? Occasional Information not available 04/22/2024 Mental Status None recorded. Family History Relationship Description Onset Age of this Age Resolved Age Notes LastModified by Organization Details LastModified Time Brother Harmful pattern of use of alcohol tcarterma Not available 2023 11:45:04 Brother Disorder [...] Atrial Fibrillation N High Blood Pressure Y Thyroid Problems Y Kidney or Bladder Problems N Depression Y COPD N Blood Clots N GI Problems N Skin Problems N Anemia N Heart Attack ([place]) N Diabetes N Anxiety Disorder Y Muscle, Joint, or Bone Problems N Seizures/Epilepsy N Acid Reflux (GERD) Y Cancer N Stroke N Allergies N Asthma N High Cholesterol Y Hepatitis N Liver Disease Y Headaches Y Osteoporosis N Heart Failure N Gynecological History Statement/Question Response Menses Monthly N Current Control Method Other Obstetrics History GPAL:G 2 P 2 0 0 2 Type Value Full Term 2 Induced 0 Spontaneous 0 Premature 0 Living 2 Total 2 Immunizations Vaccine Type Date Status Note Provider Nam e and Address Organization Details Recorded Time Influenza, recombinant, quadrivalent, PF 0 completed Johnna Blood [place], [place] [facility] 08/27/2024 08:58:47 Influenza, recombinant, [...] - [facility] 08/27/2024 08:58:47 Tdap 6 completed ASHLEY Ward[place] [facility] 08/27/2024 08:58:47 zoster live 8 completed A[place] [facility] 08/27/2024 08:58:47 Influenza, split virus, trivalent, preservative 8 completed A[place] [facility] 08/27/2024 08:58:47 Influenza, split virus, trivalent, PF 4 completed [place] [facility] 08/27/2024 08:58:47 Influenza, split virus, quadrivalent, PF 2 completed [place] [facility] 08/27/2024 08:58:47 Influenza, split virus, quadrivalent, PF 1 completed [place] [facility] 08/27/2024 08:58:47 Influenza, split virus, quadrivalent, PF 9 completed [place] [facility] 08/27/2024 08:58:47 COVID-19, mRNA, LNP-S, PF, 50 mcg/0.5 mL 4 completed ASHLEY [place] [facility] 08/27/2024 09:02:04 Influenza, recombinant, trivalent, PF 4 completed ASHLEY [place] [facility] 08/27/2024 09:03:50 Past Encounters Encounter ID Performer Location Encounter Start Date Encounter Closed Date Diagnosis/Indication Diagnosis SNOMED-CT Code Diagnosis ICD10 Code Diagnosis Note [id number] Adrien Salazar MD [facility] [place] [address] [place] [address] 04/22/2024 10:59:33 04/22/2024 12:29:01 Benign essential hypertension 1454586 I10 Borderline today but stable. continue medication s. Hyperlipidemia 94771467 E78.5 stable on statin therapy. due for fasting labs now and in aug. Hypothyroidism 03079514 E03.9 stable on thyroid supplement . due for labs now and in aug. Parkinson's disease 4904 9000 G20.A1 stable. following with specialist , on medication s. Long-term drug therapy 790561657 Z79.899 routine labs are due now and then August. Prediabetes 798000344 R7 3.03 mild a1c elevation today. following. discussed healthy diet, exercise, controllin g carbohydra natalia and added sugars in the diet. check a1c now and in Aug. Vitamin D deficiency 347 50423 E55.9 on high dose vitamin D supplement . check updated lab Mixed anxi ety and depressive disorder 786927014 F41.8 stable on sertraline therapy. no changes. Body mass index 40+ - severely obese 503987472 Z68.41 Obesity 266918780 E66.8 [id number] Adrien Salazar MD [facility] [address] [place] [address] 10/16/2024 10:52:06 10/16/2024 12:00:44 Benign essential hypertension 5126661 I10 Blood pressure is well-contr olled today, continue medication s. Diltiazem CD 240 mg daily hydrochlor othiazide 25 mg daily Parkinson's disease 4904 9000 G20.A1 stable. following with specialist , on medication s. Carbidopa levodopa combinatio n Hyperlipidemia 43590507 E78.5 stable on statin therapy. due for fasting labs again in February. On rosuvastat in 20 mg daily Hypothyroidism 26045594 E03.9 stable on thyroid supplement . Synthroid 137 mcg daily. Due for repeat thyroid function panel in February Prediabetes 270188846 R7 3.03 5.4% A1c. Patient has had terrific response to diet modificati ons and weight loss and exercise. Mixed anxi ety and depressive disorder 218015628 F41.8 stable on sertraline therapy. no changes. Vitamin D deficiency 347 24053 E55.9 on high dose vitamin D supplement . check updated lab in February Long-term drug therapy 014272660 Z79.899 cmp, cbc and b12, folate labs are due Obesity 646203270 E66.9 Chronic constipation 236 789944 K59.09 related to her parkinson' s diagnosis. Body mass index 30+ - obesity 354727922 Z68.33 BMI is decreased to 33 with terrific dietary modificati ons and continued exercise. [id number] Adrien Salazar MD [facility] [place] [address] [place] [address] 03/10/2025 10:49:02 03/10/2025 11:35:16 Benign essential hypertension 8933971 I10 Blood pressure is well-contr olled today, continue medication s. Diltiazem CD 240 mg daily hydrochlor othiazide 25 mg daily Parkinson's disease 4904 9000 G20.A1 stable. following with specialist , on medication s. Carbidopa levodopa combinatio n Hyperlipidemia 57308569 E78.5 stable on statin therapy. On rosuvastat in 20 mg daily, next fasting lipids will be ordered on August labs. Hypothyroidism 25647143 E03.9 stable on thyroid supplement . Synthroid 137 mcg daily. Next labs due in August Prediabetes 973512020 R7 3.03 5.2% A1c. Patient has had terrific response to diet modificati ons and weight loss and exercise. Repeat A1c August Mixed anxi ety and depressive disorder 458954944 F41.8 stable on sertraline therapy. no changes. Chronic constipation 236 308388 K59.09 related to her parkinson' s diagnosis. Vitamin D deficiency 347 58727 E55.9 on high dose vitamin D supplement . check updated lab in February Long-term drug therapy 253951031 Z79.899 cmp, cbc and b12, folate labs are due Adult [facility] th examination 577028251 Z00.00 Annual wellness exam completed. Patient has lost weight with diet modificati ons and continued exercise and is doing terrific. Obese class I [id number] 74899 E66.811 BMI is decreased to 32.6 with terrific dietary modificati ons and continued exercise. Health Concerns Section Related Observation LastModified by Organization Detai ls LastModified Time None Recorded Concern Status LastModified by Organization Details LastModified Time None Recorded Advance Directives Directive Y: Payers Encounter Date Sequence Insurance Name Policy Number Policy Haynes Covered Member ID Haynes Member ID Guarantor Name 04/22/2024 1 [place] [id number] Jeff Mosley [id number] Jaimie Mosley 10/16/2024 1 [place] [id number] Jeff Mosley [id number] Jaimie Pintodouglasedgio 03/10/2025 1 [place] [id number] Jeff Mosley [id number] Jaimie Mosley Notes Date Note Type [...] from specialist KARLOS Sevilla Attn: Accounting[address] [place], [address], [facility] [place] 05/09/2024 12:40:58 10/16/2024 text/html Anxiety/Depressi on Reported bypatient.Notes:st able on sertraline 100mg two daily.Hyperlipidem iaReported bypatient.Notes:st able on rosuvastatin 20mg daily.Hypertension Reported bypatient.Notes:st able on diltiazem CD 240mg daily and hctz 25mg daily andReflux/GERDRepo rted bypatient.Notes:st able on omeprazole 20mg daily.ThyroidRepor villa bypatient.Notes:st able on Unithroid 137mcg daily. Parkinson's disease. pt is stable on medications from specialist KARLOS Sevilla Attn: Accounting[address] [place], [address], [facility] [place] 11/02/2024 21:50:21 03/10/2025 text/html Anxiety/Depressi on Reported bypatient.Notes:st able on sertraline 100mg two daily.Hyperlipidem iaReported bypatient.Notes:st able on rosuvastatin 20mg daily.Hypertension Reported bypatient.Notes:st able on diltiazem CD 240mg daily and hctz 25mg daily andReflux/GERDRepo rted bypatient.Notes:st able on omeprazole 20mg daily.ThyroidRepor villa bypatient.Notes:st able on Unithroid 137mcg daily. Parkinson's disease. pt is stable on medications from specialist KARLOS Sevilla Attn: Accounting[address] [facility], [place], [address], [facility] 03/30/2025 00:03:28 OBGyn Episode No OBEpisode recorded.
--- OUTSIDE RECORDS SUMMARY | 2025-04-15 16:54 | XMS_ITS | Referral Summary ---
Author Organization [facility] Office Center Address [address] [place] [address] Care Team Providers Care Fish Worm Grower Name Role Phone Debra Villanueva Primary Care Pr ovider Simin Gunter MD Unavailable [phone] Allergies Active Allergy Reactions Criticality Noted Date Comments Codeine Nausea And Vomiting Low 02/10/2007 Penicillins Swelling Medium 02/10/2007 Lip swelling Sulfa (Sulfonamide Antibiotics) Rash Medium 02/10/2007 Medications amLODIPine (NORVASC) 5 mg tablet Take 5 mg by mouth nightly 020 Active carbidopa-levod opa CR (SINEMET CR) 50-200 mg per CR tablet carbidopa ER 50 mg-levodopa 200 mg tablet,extended release TAKE 1 TABLET BY MOUTH AT BEDTIME Active cetirizine (ZyrTEC) 10 mg tablet Take 10 mg by mouth daily Active rosuvastatin (CRESTOR) 20 mg tablet Take 20 mg by mouth nightly Active hydroCHLOROthia zide (HYDRODIURIL) 25 mg tablet hydrochlorothiazide 25 mg tablet Active levothyroxine (SYNTHROID) 137 mcg tablet levothyroxine 137 mcg tablet 019 Active sertraline (ZOLOFT) 100 mg tablet sertraline 100 mg tablet Take 2 tablets by mouth daily. 016 Active cholecalciferol , vitamin D3, 50 mcg/drop (2, 000 unit/drop) drops Take 200 mg by mouth daily Active rasagiline (AZILECT) 1 mg tablet rasagiline 1 mg tablet 04/05 020 Active calcium carbonate-vitam in D3 1,250mg (500mg elemental) - 5 mcg (200 units) per tablet daily 007 Active fluticasone propionate (FLONASE) 50 mcg/actuation nasal spray daily 008 Active pediatric multivitamin tablet,chewable Take by mouth Active omega-3 fatty acids-fish oil 300-1,000 mg capsule Take by mouth Active sodium, potassium & mag sulfates (SUPREP BOWEL KIT) 17.5-3.13-1.6 gram recon soln Suprep Bowel Prep Kit 17.5 gram-3.13 gram-1.6 gram oral solution USE DIRECTED Active cholecalciferol (VITAMIN D-3) 400 unit capsule Vitamin D3 Active amitriptyline (ELAVIL) 10 mg tablet TAKE THREE TABLETS BY MOUTH AT BEDTIME 011 Active azithromycin (ZITHROMAX) 250 mg tablet Active busPIRone (BUSPAR) 5 mg tablet every 12 hours Activ e cephalexin (KEFLEX) 500 mg capsule cephalexin 500 mg capsule TAKE 1 CAPSULE BY MOUTH EVERY 6 HOURS FOR 7 DAYS Active glucose 4 gram chewable tablet Take 4 g by mouth as needed Active doxycycline (VIBRAMYCIN) 100 mg capsule doxycycline hyclate 100 mg capsule Active doxycycline hyclate 100 mg capsule 022 Active eletriptan (RELPAX) 40 mg tablet FF - TAKE 1 TABLET AT ONSET OF MIGRAINE, MAY REPEAT ONCE AFTER 2 HOURS. MAX DOSE OF 2 TABS/24 HOURS. 007 Active etonogestreL-et hinyl estradioL (NUVARING, ELURYNG) 0.12-0.015 mg/24 hr vaginal ring Insert into the vagina 02/11 Active influenza quadrivalent 1111-3633 (Fluzone Quad 4658-1317, PF,) 60 mcg (15 mcg x 4)/0.5 mL syringe Fluzone Quad (PF) 60 mcg (15 mcg x 4)/0.5 mL IM syringe Acti ve fluoride, sodium, 1.1 % gel SF 5000 Plus 1.1 % dental cream USE TO BRUSH TEETH ONCE DAILY AT BEDTIME Act mima SF 5000 Plus 1.1 % cream USE TO BRUSH TEETH ONCE DAILY AT BEDTIME Active HYDROcodone-daron taminophen (NORCO) 7.5-325 mg per tablet hydrocodone 7.5 mg-acetaminophen 325 mg tablet TAKE 1 TABLET BY MOUTH EVERY 6 HOURS NEEDED FOR 7 DAYS Active acetic acid-hydrocorti sone otic solution hydrocortisone-acetic acid 1 %-2 % ear drops Ac tive HYDROmorphone (DILAUDID) 4 mg tablet hydromorphone 4 mg tablet TK 1 T PO Q 6 H PRN Activ e icosapent ethyL (VASCEPA) 1 gram capsule every 12 hours Ac tive levoFLOXacin (LEVAQUIN) 500 mg tablet daily Active levoFLOXacin (LEVAQUIN) 500 mg tablet Take 500 mg by mouth Active meclizine (ANTIVERT) 12.5 mg tablet meclizine 12.5 mg tablet Active metoprolol XL (TOPROL-XL) 50 mg extended release tablet 2 times daily A ctive metroNIDAZOLE (METROGEL) 0.75 % gel Active rosuvastatin (CRESTOR) 20 mg tablet rosuvastatin 20 mg tablet TAKE 1 TABLET BY MOUTH ONCE DAILY IN THE EVENING Active Tirosint 137 mcg capsule Active levothyroxine sodium (TIROSINT) 137 mcg capsule Tirosint 137 mcg capsule TAKE 1 CAPSULE BY MOUTH ONCE DAILY IN THE EVENING Active levothyroxine (SYNTHROID) 75 mcg tablet Active levothyroxine (SYNTHROID) 125 mcg tablet levothyroxine 125 mcg tablet Active cholecalciferol , vitamin D3, 50 mcg/drop (2, 000 unit/drop) drops Dfk-T-Eleuffo Forte 50 mcg/drop (2,000 unit/drop) oral drops TAKES 2 DROPLETTS PO DAILY Active cetirizine (ZyrTEC) 10 mg capsule Zyrtec 10 mg capsule Take by oral route. Activ e carbidopa-levod opa (SINEMET) 25-100 mg per tablet Take 1 tablet by mouth 3 (three) times a day Active carbidopa-levod opa (SINEMET) 25-100 mg per tablet carbidopa 25 mg-levodopa 100 mg tablet Active amLODIPine (NORVASC) 5 mg tablet amlodipine 5 mg tablet TAKE 1 TABLET BY MOUTH ONCE DAILY IN THE EVENING Active amLODIPine (NORVASC) 2.5 mg tablet amlodipine 2.5 mg tablet Active spironolactone (ALDACTONE) 50 mg tablet spironolactone 50 mg tablet Active naratriptan (AMERGE) 2.5 mg tablet TAKE ONE TABLET BY MOUTH AT ONSET OF HEADACHE. MAY REPEAT ONCE IN 4 HOURS. Active Paxlovid, EUA, tablets,dose pack tablets in a dose pack (EUA) as directed Active omega-3 fatty acids (LOVAZA) 1 gram capsule omega-3 acid ethyl esters 1 gram capsule Active omega-3 fatty acids (LOVAZA) 1 gram capsule Active predniSONE (DELTASONE) 50 mg tablet prednisone 50 mg tablet Active predniSONE (DELTASONE) 5 mg tablet Active Active Problems No known active problems Social History Tobacco Use Types Packs/Day Years Used Date Smoking Tobacco: Never Smokeless Tobacco: Never Alcohol Use Standard Drinks/Week Comments Yes 0 (1 standard drink = 0.6 oz pur e alcohol) Comments Unknown Sex and Gender Information Value Date Recorded Sex Assigned at Not on file Legal Sex Female 2:06 AM YOUTH PROBATION OFFICER Gender Identity Not on file Sexual Orientation Not on file Occupation Industry Job Start Date Job End Date retired Not on file Not on file Not on file Last Filed Vital Signs Vital Sign Reading Time Taken Comments Blood Pressure 139/82 07/13/2022 9:27 AM CDT Pulse 75 07/13/2022 9:27 AM CDT Temperature 36.7 C (98.1 F) 12/13/2019 1:22 PM YOU[employer]OBATION OFFICER Respiratory Rate - - Oxygen Saturation 99% 12/13/2019 1:22 PM [employer]ATION OFFICER Inhaled Oxygen Concentration - - Weight 117.5 kg (259 lb) 07/13/2022 9:27 AM CDT Height 170.2 cm (5' 7) 07/13/2022 9:27 AM CDT Body Mass Index 40.57 07/13/2022 9:27 AM CDT Plan of Treatment Not on file Insurance DR CARRIE PERDOMO[place] [id number] [place]RIE PERDOMO, [place] [id number] Care Teams Fish Worm Grower Relationship Specialty Start Date End Date Debra Villanueva PA PCP - General 12/13/19 Simin Gunter MD 12/13/19
--- OUTSIDE RECORDS SUMMARY | 2025-04-15 16:54 | XMS_ITS | Encounter Summary ---
Author Organization [facility] Address [address] [place] [address] Care Team Providers Care Installation & Maintenance Executive Name Role Phone Simin Gunter MD Primary Care Provider [phone] Debra Veliz Primary Care Pr ovider Encounter Details Date Type Department Care Team (Late Contact Info) Description 10/08/2018 Lab Requisition [facility] [address] [place] [id number] Rosie Munoz MD [address] [place] [address] [address] [place] [address] Social History Tobacco Use Types Packs/Day Years Used Date Smoking Tobacco: Never Smokeless Tobacco: Never Alcohol Use Standard Drinks/Week Comments No 0 (1 standard drink = 0.6 oz pur e alcohol) Comments No Sex and Gender Information Value Date Recorded Sex Assigned at Female 12/27/2023 4:35 PM BAG PRINTER Legal Sex Female 6:13 AM BAG PRINTER Gender Identity Female 12/27/2023 4:35 PM BAG PRINTER Sexual Orientation Straight 12/27/2023 4: 35 PM BAG PRINTER documented as of this encounter Plan of Treatment Upcoming Encounters Date Type Department Care Team (Late Contact Info) Description 05/19/2025 3:30 PM CDT Video Visit [facility] - Neurology [address] [place] [address] Anjum Mendoza MD [address] [place] [address] [place] [address] documented as of this encounter Procedures Procedure Name Priority Date/Time Associated Diagnosis Comments DERMATOPATH TECHNICAL REPORT Routine 10/04/2018 12:00 AM BAG PRINTER documented in this encounter Results * DERMATOPATH TECHNICAL REPORT (10/04/2018 12:00 AM BAG PRINTER) Case Report Dermatopathology Report Case: [id number] Authorizing Provider: Rosie Munoz MD Collected: 10/04/2018 12:00 AM Pathologist: Eric Mann MD Received: 10/08/2018 06:45 AM Specimen: Skin, left inner thigh 4:42 PM BAG PRINTER DERMATOPATHOLOGY LABORATORY Clinical History R/O nevus, growing, irritated. 4:42 PM [facility] DERMATOPATHOLOGY LABORATORY Gross Description Specimen A: Received is one formalin filled container labeled with the patient's name and designated left inner thigh. The specimen consists of a shave measuring [id number], bisected. Jar 0. [facility] Dermatopathology Laboratory performed the technical component only. 4:42 PM [facility] DERMATOPATHOLOGY LABORATORY Embedded Images 4:42 PM [facility] DERMATOPATHOLOGY LABORATORY DISCLAIMER An external and internal positive and negative controls are appropriate for the histochemical, immunohistochemical and immunofluorescence stain(s) in this case (if any), except where stated explicitly. The performance characteristics of the stain(s) cited in this report were developed and its performance characteristic determined by the Dermatopathology Laboratory at [facility]. These tests need not be, and therefore are not, approved by the [place] Food and Drug Administration. The tests are used for clinical purposes. 4:42 PM [facility] DERMATOPATHOLOGY LABORATORY at [address] BAG PRINTER Pathology/Cytolog y TISSUE SPECIMEN FROM SKIN / Unknown 10/04/2018 10/08/2018 6:45 AM BAG PRINTER us Rosie Munoz MD LAB - PATHOLOGY/CYTOLOGY ORD ERABLES Final Result DERMATOPATHOLOGY LABORATORY [facility] - Department of Dermatology [address] [facility] [facility], [address] [place] [address], [facility] [phone] documented in this encounter Visit Diagnoses Not on filedocumented in this encounter Care Teams Installation & Maintenance Executive Relationship Specialty Start Date End Date Simin Gunter MD [address] [place] [address] PCP - General 02/26/18 04/27/20 Debra Veliz PA [address] [place] [address] PCP - General 04/28/20 documented as of this encounter
--- OUTSIDE RECORDS SUMMARY | 2025-04-15 16:54 | XMS_ITS | Encounter Summary ---
Author Organization [facility] Address [address] [facility] [place] [address] Care Team Providers Care Chef Name Role Phone Debra Veliz Primary Care Pr ovider Encounter Details Date Type Department Care Team (Late st Contact Info) Description 01/20/2025 Lab Requisition [facility] D[facility] Lab [address] [place] [phone] Mirian Whiting DO [address] [place] [address] [address] [place] [address] Social History Tobacco Use Types Packs/Day Years Used Date Smoking Tobacco: Never Smokeless Tobacco: Never Alcohol Use Standard Drinks/Week Comments No 0 (1 standard drink = 0.6 oz pur e alcohol) Comments No Sex and Gender Information Value Date Recorded Sex Assigned at Female 12/27/2023 4:35 PM WORKERS COMPENSATION CLAIMS ANALYST Legal Sex Female 6:13 AM WORKERS COMPENSATION CLAIMS ANALYST Gender Identity Female 12/27/2023 4:35 PM WORKERS COMPENSATION CLAIMS ANALYST Sexual Orientation Straight 12/27/2023 4: 35 PM WORKERS COMPENSATION CLAIMS ANALYST documented as of this encounter Plan of Treatment Upcoming Encounters Date Type Department Care Team (Late Contact Info) Description 05/19/2025 3:30 PM CDT Video Visit [facility] - Neurology [address] [facility], [place] [phone] Anjum Mendoza MD [address] [place] [address] [place] [address] documented as of this encounter Procedures Procedure Name Priority Date/Time Associated Diagnosis Comments DERMATOPATHOLOGY Routine 01/20/2025 10:5 5 AM CDT documented in this encounter Results * DERMATOPATHOLOGY (01/20/2025 10:55 AM CDT) Case Report Dermatopathology Report Case: [id number] Authorizing Provider: Mirian Whiting DO Collected: 01/20/2025 10:55 AM Ordering Location: [facility] - Received: 01/21/2025 06:36 AM DermPath Lab Pathologist: Flor Philip MD Specimen: Skin, left upper arm 4:25 PM CDT DERMATOPATHOLOGY LABORATORY Final Diagnosis Specimen A. SKIN, left upper arm: PSORIASIFORM DERMATITIS (L44.8) (see microscopic description and comment) 4:25 PM CDT DERMATOPATHOLOGY LABORATORY at 1625 CDT Clinical History ISK vs SCC 4:25 PM CDT DERMATOPATHOLOGY LABORATORY Gross Description Specimen A: Received is one formalin filled container labeled with the patient's name and designated left upper arm. The specimen consists of a shave biopsy measuring 7x6x1 mm. Jar 0. 4:25 PM CDT DERMATOPATHOLOGY LABORATORY Microscopic Description Specimen A. SKIN, left upper arm: There is psoriasiform hyperplasia of the epidermis with focal parakeratosis and spongiosis. Intraepidermal neutrophils are seen. There is a superficial, mainly lymphohistiocytic inflammatory infiltrate. Grocott's methenamine silver (GMS) stain is negative for fungal elements in the sections examined. IL-36 immunostain demonstrate focally strong staining in the superficial aspect of the epidermis. COMMENT: If these histologic features represent a more localized process, the findings are consistent with a psoriasiform keratosis. If they represent a more diffuse process, the histological differential diagnosis includes early / partially treated psoriasis and less likely a chronic eczematous dermatitis. 4:25 PM CDT DERMATOPATHOLOGY LABORATORY Disclaimer An external and internal positive and negative controls are appropriate for the histochemical, immunohistochemical and immunofluorescence stain(s) in this case (if any), except where stated explicitly. The performance characteristics of the stain(s) cited in this report were developed and its performance characteristic determined by the Dermatopathology Laboratory at [facility], directed by Dr. Quan Mann. These tests need not be, and therefore are not, approved by the [place] Food and Drug Administration. The tests are used for clinical purposes. Billing Codes Specimen Charges Stain Charges 36036 1 62805 18486 1 1 5 4:25 PM CDT DERMATOPATHOLOGY LABORATORY Embedded Images 5 4:25 PM CDT DERMATOPATHOLOGY LABORATORY Pathology/Cytolo gy TISSUE SPECIMEN FROM SKIN / Unknown 01/20/2025 10:55 AM CDT 01/21/2025 6:36 AM CDT us Mirian Whiting DO LAB - PATHOLOGY/CYTOLOGY ORDERABLES Final Result DERMATOPATHOLOGY LABORATORY [facility] - Department of Dermatology [facility] Specialized Medicine [address] [place] [address], [address] [phone] documented in this encounter Visit Diagnoses Not on filedocumented in this encounter Care Teams Chef Relationship Specialty Start Date End Date Debra Veliz PA [address] [place] [phone] PCP - General 04/28/20 documented as of this encounter
--- OUTSIDE RECORDS SUMMARY | 2025-04-15 16:54 | XMS_ITS | Clinical Summary ---
Author Organization [facility] Address [address] [place] [address] Care Team Providers Care Parquet Floor Layer'S Helper Name Role Phone Debra Villanueva Primary Care Pr ovider Simin Gunter MD Unavailable [phone] Allergies Active Allergy Reactions Criticality Noted [...] into the vagina 02/11 Active influenza quadrivalent 8319-7108 (Fluzone Quad 3161-9112, PF,) 60 mcg (15 mcg x 4)/0.5 [...] D3, 50 mcg/drop (2, 000 unit/drop) drops Ztq-[id number]-Vqtfvuv Forte 50 mcg/drop (2,000 unit/drop) oral drops [...] HEADACHE. MAY REPEAT ONCE IN 4 HOURS. 012 Active Paxlovid, EUA, tablets,dose pack tablets in a dose pack (EUA) as directed Active omega-3 fatty acids (LOVAZA) 1 gram capsule omega-3 acid ethyl esters 1 gram capsule Active omega-3 fatty acids (LOVAZA) 1 gram capsule 022 Active predniSONE (DELTASONE) 50 mg tablet prednisone 50 mg tablet Active predniSONE (DELTASONE) 5 mg tablet 022 Active Active Problems No known active problems Surgical History Surgery Date Site/Laterality Comments [place] TONSILLECTOMY PRIMARY/SEC ONDARY <AGE 12 Tonsillectomy - (Added by Conv) BLADDER SURGERY TONSILLECTOMY SINUS SURGERY CHOLECYSTECTOMY KNEE ARTHROSCOPY Medical History Medical History Date Comments Hypertension Hypercholesteremia Thyroid disease Depression Migraines Family History Medical History Relation Name Comments Rheum arthritis Other 1 Rheumatoid A rthritis - MGF (Added by Conv) Depression Other 2 Depression - si ster, MGM,2 children (Added by Conv) Migraines Other 3 Migraine Headac he - MGM (Added by Conv) Arthritis Other 4 Heart disease Other 4 Hypertension Other 4 Lung disease Other 4 Sleep apnea Other 4 Obstructive Sle ep Apnea - brother and father (Added by Conv) Thyroid disease Other 4 Relation Name Status Comments Other 1 Other 2 Other 3 Other 4 Social History Tobacco Use Types Packs/Day Years Used Date Smoking Tobacco: Never Smokeless Tobacco: Never Alcohol Use Standard Drinks/Week Comments Yes 0 (1 standard drink = 0.6 oz pur e alcohol) Comments Unknown Sex and Gender Information Value Date Recorded Sex Assigned at Not on file Legal Sex Female 2:06 AM EMD SPECIAL EDUCATION TEACHER Gender Identity Not on file Sexual Orientation Not on file Occupation Industry Job Start Date Job End Date retired Not on file Not on file Not on file Obstetrics History Last Filed Vital Signs Vital Sign Reading Time Taken Comments Blood Pressure 139/82 07/13/2022 9:27 AM CDT Pulse 75 07/13/2022 9:27 AM CDT Temperature 36.7 C (98.1 F) 12/13/2019 1:22 PM EMD SPECIAL EDUCATION TEACHER Respiratory Rate - - Oxygen Saturation 99% 12/13/2019 1:22 PM EMD SPECIAL EDUCATION TEACHER Inhaled Oxygen Concentration - - Weight 117.5 kg (259 lb) 07/13/2022 9:27 AM CDT Height 170.2 cm (5' 7) 07/13/2022 9:27 AM CDT Body Mass Index 40.57 07/13/2022 9:27 AM CDT Plan of Treatment Health Maintenance Due Date Last Done Comments Breast Cancer Screening-Mammogram 1963 Cervical Cancer Screening 1963 Colon Cancer Screening-Colonoscopy 1963 Depression Screening 1963 Hepatitis C Screening 1963 Hepatitis B Screening 1981 Regular Well Visit/Exam 18-64 1981 Influenza Vaccine (Season Ended) 2025 08/13/2020, 09/07/2019, 07/04/2018, Additional history exists DTaP/Tdap/Td Vaccine (2 - Td or Tdap) 09/28/2026 09/28/2016 Zoster Vaccine Completed 07/04/2018, 03/06, 12/17/2017 Pneumococcal vaccine <65 Aged Out No longer eligible based on patient's age to complete this [place] [address] [place] [address] Care Teams Parquet Floor Layer'S Helper Relationship Specialty Start Date End Date Debra Villanueva PA PCP - General 12/13/19 Simin Gunter MD 12/13/19
--- OUTSIDE RECORDS SUMMARY | 2025-04-15 16:54 | XMS_ITS | Encounter Summary ---
Author Organization [facility] Address [address] [facility] [place] [address] Care Team Providers Care Surface Grinding Machine Hand Name Role Phone Simin Gunter MD Primary Care Provider [phone] Debra Veliz Primary Care Pr ovider Reason for Visit * Reason Onset Date Comments MEDICATION REFILL 03/10/2019 Encounter Details Date Type Department Care Team (Late Contact Info) Description 03/10/2019 Refill [facility] [address] [place] [address] Jessica Benitez APRN-[address] [phone] MEDICATION REFILL Social History Tobacco Use Types Packs/Day Years Used Date Smoking Tobacco: Never Smokeless Tobacco: Never Alcohol Use Standard Drinks/Week Comments No 0 (1 standard drink = 0.6 oz pur e alcohol) Comments No Sex and Gender Information Value Date Recorded Sex Assigned at Female 12/27/2023 4:35 PM DIRECTOR OF VOCATIONAL GUIDANCE Legal Sex Female 6:13 AM DIRECTOR OF VOCATIONAL GUIDANCE Gender Identity Female 12/27/2023 4:35 PM DIRECTOR OF VOCATIONAL GUIDANCE Sexual Orientation Straight 12/27/2023 4: 35 PM DIRECTOR OF VOCATIONAL GUIDANCE documented as of this encounter Plan of Treatment Upcoming Encounters Date Type Department Care Team (Late Contact Info) Description 05/19/2025 3:30 PM CDT Video Visit [facility]rology [address] [place] [phone] Anjum Mendoza MD [address] [place] [phone] documented as of this encounter Visit Diagnoses Diagnosis Parkinson's disease (HCC) documented in this encounter Care Teams Surface Grinding Machine Hand Relationship Specialty Start Date End Date Simin Gunter MD [address] [place], [place] [phone] PCP - General 02/26/18 04/27/20 Debra Veliz PA [address] [place] [address] PCP - General 04/28/20 documented as of this encounter
--- OUTSIDE RECORDS SUMMARY | 2025-04-15 16:54 | XMS_ITS | Encounter Summary ---
Author Organization [facility] Address [address] [facility] [place] [address] Care Team Providers Care Scada Technician Name Role Phone Debra Veliz Primary Care Pr ovider Reason for Visit * Reason Onset Date Comments MEDICATION REFILL 12/27/2023 Encounter Details Date Type Department Care Team (Late st Contact Info) Description 12/27/2023 Refill [facility] - Neurology [address] [place] [address], [place] [address] Jessica Benitez APRN-CHIROPRACTOR SOLE PRACTITIONER [address] [place] [phone] MEDICATION REFILL Social History Tobacco Use Types Packs/Day Years Used Date Smoking Tobacco: Never Smokeless Tobacco: Never Alcohol Use Standard Drinks/Week Comments No 0 (1 standard drink = 0.6 oz pur e alcohol) Comments No Sex and Gender Information Value Date Recorded Sex Assigned at Female 12/27/2023 4:35 PM PORTFOLIO LEAD Legal Sex Female 6:13 AM PORTFOLIO LEAD Gender Identity Female 12/27/2023 4:35 PM PORTFOLIO LEAD Sexual Orientation Straight 12/27/2023 4: 35 PM PORTFOLIO LEAD documented as of this encounter Miscellaneous Notes * Telephone Encounter - Ivan Flower MA - 12/28/2023 7:39 AM CST Refill Request Jaimie Mosley LIZZY: 09/19/2023Sep due: 6 month follow up NOV date: 03/19/2024 Carbidopa-levodopa CR 50-200 MG tablet LRF: 12/21/2022 Quantity dispensed: 90 tablets # refills: 4 Allergies: Allergies Allergen Reactions ??? Sulfa Drugs Rash ??? Codeine Nausea and/or Vomiting ??? Penicillins Swelling Lip swelling Pended Medication Order: Requested Prescriptions Pending Prescriptions Disp Refills ??? carbidopa-levodopa CR (Sinemet CR) 50-200 MG tablet 90 tablet 4 Sig: Take 1 (one) tablet by mouth at bedtime FOLIO LEAD documented in this encounter Plan of Treatment Upcoming Encounters Date Type Department Care Team (Late st Contact Info) Description 05/19/2025 3:30 PM CDT Video Visit [facility] - Neurology [address] [place] [address], [facility] [place] [phone] Anjum Mendoza MD [address] [place] [address] [place] [phone] documented as of this encounter Visit Diagnoses Diagnosis Idiopathic Parkinson's disease (HCC)- Primary Paralysis agitans documented in this encounter Care Teams Scada Technician Relationship Specialty Start Date End Date Debra Veliz PA [address] [place] [phone] PCP - General 04/28/20 documented as of this encounter
--- OUTSIDE RECORDS SUMMARY | 2025-04-15 16:54 | XMS_ITS | Encounter Summary ---
Author Organization [facility] Address [address] [place] [address] Care Team Providers Care Java Android Developer Name Role Phone Debra Veliz Primary Care Pr ovider Reason for Visit * Reason Onset Date Comments MEDICATION REFILL 12/25/2023 Encounter Details Date Type Department Care Team (Late st Contact Info) Description 12/25/2023 Refill [facility] [address] [place] [phone] Diana Hardwick MD MEDICATION REFILL Social History Tobacco Use Types Packs/Day Years Used Date Smoking Tobacco: Never Smokeless Tobacco: Never Alcohol Use Standard Drinks/Week Comments No 0 (1 standard drink = 0.6 oz pur e alcohol) Comments No Sex and Gender Information Value Date Recorded Sex Assigned at Female 12/27/2023 4:35 PM CASTING AND PASTING SUPERVISOR Legal Sex Female 6:13 AM CASTING AND PASTING SUPERVISOR Gender Identity Female 12/27/2023 4:35 PM CASTING AND PASTING SUPERVISOR Sexual Orientation Straight 12/27/2023 4: 35 PM CASTING AND PASTING SUPERVISOR documented as of this encounter Miscellaneous Notes * Telephone Encounter - Ivan Flower MA - 12/27/2023 9:35 AM CST Refill Request Jaimie Mosley LIZZY: 09/19/2023Sep due: 6 month follow up NOV date: 03/19/2024 (with Dr. Mendoza) Carbidopa-levodopa CR 50-200 MG tablet LRF: 12/21/2022 Quantity dispensed: 90 tablets # refills: 4 Allergies: Allergies Allergen Reactions ??? Sulfa Drugs Rash ??? Codeine Nausea and/or Vomiting ??? Penicillins Swelling Lip swelling Pended Medication Order: Requested Prescriptions Pending Prescriptions Disp Refills ??? carbidopa-levodopa CR (Sinemet CR) 50-200 MG tablet 90 tablet 4 Sig: Take 1 (one) tablet by mouth at bedtime ING AND PASTING SUPERVISOR documented in this encounter Plan of Treatment Upcoming Encounters Date Type Department Care Team (Late st Contact Info) Description 05/19/2025 3:30 PM CDT Video Visit [facility] - Neurology [address] [place] [address], [facility] [place] [address] Anjum Mendoza MD [address] [place] [phone] documented as of this encounter Visit Diagnoses Diagnosis Parkinson's disease (HCC) documented in this encounter Care Teams Java Android Developer Relationship Specialty Start Date End Date Debra Veliz PA [address] [place] [address] PCP - General 04/28/20 documented as of this encounter
--- OUTSIDE RECORDS SUMMARY | 2025-04-15 16:54 | XMS_ITS | Clinical Summary ---
Author Organization [facility] [employer] Address [address] [place] [address] Care Team Providers Care Machine Bobbin Winder Name Role Phone Debra Veliz Primary Care Pr ovider Source Comments [facility],non-owned Affiliates and Associated Physician Practices is amultiple site organization consisting of ambulatory clinics and hospital sitesin [place], [place], [place] and [place]. This disclosure is being madepursuant to the Care Everywhere program and may not contain all information available regarding this patient. Last updated 18.[facility] [employer] Allergies Active Allergy Reactions Criticality Noted Date Comments Codeine Nausea and/or Vomiting Low 09/15/2016 Penicillins Swelling Low 09/15/2016 Lip swelling Sulfa Drugs Rash Medium 09/15/2016 Medications * Be aware that medications may not be up to date on this document. Alwaysverify current medications with the patient. sertraline (ZOLOFT) 100 MG tabletIndicat ions:Hashimot o's thyroiditis,A cquired hypothyroidis m,Goiter,Thyr oid nodule Take 2 (two) tablets by mouth 08/31/20 16 Active cetirizine (ZYRTEC) 10 MG tablet Take 10 mg by mouth once daily Active Cholecalcifer ol (UAT-S-WSSEEQ N FORTE PO) Take 200 mg by mouth once daily Active Multiple Vitamins-Mine rals (MULTI COMPLETE PO) Active levothyroxine (SYNTHROID) 137 MCG tablet Take 1 tablet by mouth once daily 90 tablet 4 09/01/20 19 Active hydroCHLOROth iazide (HYDRODIURIL) 25 MG tablet hydrochlorothiazide 25 mg tablet Active amLODIPine (NORVASC) 2.5 MG tablet TAKE 1 TABLET BY MOUTH ONCE DAILY IN THE EVENING 12/17/19 20 Active cholecalcifer ol 25 MCG (1000 UNITS)/0.03ML liquid Ehu-S-Khceemc Forte 50 mcg/drop (2,000 unit/drop) oral drops TAKES 2 DROPLETTS PO DAILY Active glucose (DEX4) 4 g chew tablet Take 4 g by mouth as needed for Other Active [place]-3 Fatty Acids (FISH OIL PO) Active rosuvastatin (CRESTOR) 20 MG tablet TAKE 1 TABLET BY MOUTH ONCE DAILY IN THE EVENING 03/16/20 21 Active busPIRone (BUSPAR) 5 MG tablet buspirone 5 mg tablet Take 1 tablet twice a day by oral route. Active dilTIAZem SR 24hr (Dilacor XR) 240 MG capsule Take 1 (one) capsule by mouth once daily Activ e omeprazole (PriLOSEC) 20 MG capsule Take 1 (one) capsule by mouth daily before breakfast Active carbidopa-lev odopa (Sinemet) 25-100 MG tabletIndicat ions:Idiopath ic Parkinson's disease (HCC) Take 2 (two) tablets by mouth 3 times daily 540 tablet 3 06/25/20 24 Active carbidopa-lev odopa CR (Sinemet CR) 50-200 MG tabletIndicat ions:Parkinso n's Disease Take 1 (one) tablet by mouth at bedtime Reasons: Parkinson's Disease 90 tablet 3 06/25/20 24 Active rasagiline (Azilect) 1 MG tabletIndicat ions:Parkinso n's Disease Take 1 (one) tablet by mouth once daily Reasons: Parkinson's Disease 90 tablet 3 06/25/20 24 Active Additional Information Patient not taking.Reported on 11/19/2024 propranolol ER 24hr (Inderal LA) 60 MG capsuleIndica tions:Tremor Take 1 (one) capsule by mouth once daily Reasons: Involuntary Quivering 90 capsule 3 06/25/20 24 Active Additional Information Patient not taking.Reported on 11/19/2024 rOPINIRole (Requip) 1 MG tabletIndicat ions:Restless Leg Syndrome Take 1 (one) tablet by mouth at bedtime Reasons: Restless Leg Syndrome 90 tablet 3 03/20/20 25 2025 Active rOPINIRole (Requip) 0.5 MG tabletIndicat ions:Restless Leg Syndrome Take 1 (one) tablet by mouth at bedtime for 90 days Reasons: Restless Leg Syndrome 90 tablet 3 11/22/19 25 2024 Disconti nued(Cli nical Decision ) Active Problems Problem Noted Date Diagnosed Date Acute bronchitis 02/26/2019 Acute suppurative otitis med ia of left ear without spontaneous rupture of tympanic membrane 02/26/2019 Elevated alkaline phosphatase level 02/26/2019 Elevated liver enzymes 02/26/2019 Essential hypertension 02/26/2019 Hypertriglyceridemia 02/26/2019 Hypoglycemia 02/26/2019 Left hand paresthesia 02/26/2019 Lower respiratory tract infection 02/26/2019 Sinusitis chronic, ethmoidal 02/26/2019 Tinnitus, bilateral 02/26/2019 Unilateral hearing loss, right 02/26/2019 Vitamin D deficiency 02/26/2019 Body mass index (bmi) 36.0-36.9, adult 9 Parkinson's disease 10/23/2018 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 [place] [address] Anjum Mendoza MD RLS (restless legs syndrome) 01/20/2025 Lab Requisition [facility] - DermPath Lab [address], [place] [address] Mirian Whiting DO from Last 3 Months Immunizations Immunization Administration Dates Next Due INFLUENZA VACCINE, TRIV. (AF LURIA, FLUZONE TRIVALENT; 6MO+) (IIV3) 07/04/2018,08/13/2017 FLU VACCINE TRI IIV3 SPLIT PF IM (FLUVIRIN) 11/05 INFLUENZA VACCINE, QUADR. (F LUZONE; FLULAVAL; FLUARIX; AFLURIA QUADRIVALENT; 6MO+), 0.5 ML (IIV4) 09/07/2019 TDAP (7yrs+) 09/28/2016 Zoster Hzv Vacc Recombinant Inj Im 07/04/2018, Family History Medical History Relation Name Comments COPD - Chronic Obstructive Pulmonary Disease Brother Depression Brother Sleep Disorder - Narcolepsy Brother Thyroid Disease Brother COPD - Chronic Obstructive Pulmonary Disease Father Hypertension Father Sleep Disorder - Narcolepsy Father Thyroid Disease Father Hypertension Maternal Grandmother Migraine Maternal Grandmother Hypertension Mother Osteoporosis Mother Thyroid Disease Mother Cancer - Other Paternal Grandmother Diabetes - Type 2 Paternal Grandmother Depression Sister Hypertension Sister Sleep Disorder - Narcolepsy Sister Thyroid Disease Sister Relation Name Status Comments Brother Father Maternal Grandmother Mother Paternal Grandmother Sister Social History Tobacco Use Types Packs/Day Years Used Date Smoking Tobacco: Never Smokeless Tobacco: Never Tobacco Cessation:Counseling Given: Not Answered Alcohol Use Standard Drinks/Week Comments No 0 (1 standard drink = 0.6 oz pur e alcohol) Comments No Sex and Gender Information Value Date Recorded Sex Assigned at Female 12/27/2023 4:35 PM GRADES 9 THROUGH 12 TEACHER Legal Sex Female 6:13 AM GRADES 9 THROUGH 12 TEACHER Gender Identity Female 12/27/2023 4:35 PM GRADES 9 THROUGH 12 TEACHER Sexual Orientation Straight 12/27/2023 4: 35 PM GRADES 9 THROUGH 12 TEACHER Last Filed Vital Signs Vital Sign Reading Time Taken Comments Blood Pressure 139/76 11/19/2024 3:35 PM GRADES 9 THROUGH 12 TEACHER Pulse 60 11/19/2024 3:35 PM GRADES 9 THROUGH 12 TEACHER Temperature 36.1 C (97 F) 09/19/2023 10:04 AM GRADES 9 THROUGH 12 TEACHER Respiratory Rate 16 02/26/2019 2:13 PM CDT Oxygen Saturation 97% 11/19/2024 3:35 PM GRADES 9 THROUGH 12 TEACHER Inhaled Oxygen Concentration - - Weight 96.2 kg (212 lb) 11/19/2024 3:35 PM GRADES 9 THROUGH 12 TEACHER Height 170.2 cm (5' 7) 12/24/2019 11:11 AM GRADES 9 THROUGH 12 TEACHER Body Mass Index 33.2 12/24/2019 11:11 AM GRADES 9 THROUGH 12 TEACHER Plan of Treatment Upcoming Encounters Date Type Department Care Team (Late st Contact Info) Description 05/19/2025 3:30 PM CDT Video Visit [facility] - Neurology [facility], [place] [phone] Anjum Mendoza MD [facility] [place] [phone] Health Maintenance Due Date Last Done Comments COLOGUARD (AGES 45-75) - COLON CA SCREENING 1965 COLON MONITORING 1965 COLONOSCOPY - COLON CA SCREENING 1965 CT COLONOGRAPHY - COLON CA SCREENING 1965 Colorectal Cancer Screening 1965 FIT - COLON CA SCREENING 1965 FLEX SIG - COLON CA SCREENING 1965 MAMMOGRAM 1965 HIV SCREENING 1978 HEPATITIS C SCREENING 01/20/1981 PAP SMEAR 01/26/1984 PAP with HPV 1993 PNEUMOCOCCAL VACCINE 50+ (1 of 1 - PCV) 2013 COVID-19 VACCINE ( season) 2024 08/20/2023, 08/31/2021, 01/29/2021, Additional history exists DEPRESSION SCREENING 11/05/2024 DTAP/TDAP/TD VACCINES (2 - Td or Tdap) 09/28/2026 09/28/2016 Respiratory Syncytial Virus (RSV) Vaccine Pt: or over 60 yrs (1 - 1-dose 75+ series) 2038 ZOSTER VACCINE Completed 07/04/2018, 03/29/2018 INFLUENZA VACCINE Completed 08/16/2024, , 08/26/2021, Additional history exists HEPATITIS B VACCINE Aged Out No longe r eligible based on patient's age to complete this topic HIB VACCINE Aged Out No longer eligi ble based on patient's age to complete this topic HPV VACCINE Aged Out No longer eligi ble based on patient's age to complete this topic MENINGOCOCCAL (Group B) VACCINE SHARED DECISION-MAKING Aged Out No longer eligible based on patient's age to complete this topic MENINGOCOCCAL GROUPS A/C/Y/W VACCINE Aged Out No longer eligible based on patient's age to complete this topic Procedures Procedure Name Priority Date/Time Associated Diagnosis Comments DERMATOPATHOLOGY Routine 01/20/2025 10:5 5 AM CDT from Last 3 Months Results * DERMATOPATHOLOGY (01/20/2025 10:55 AM CDT) Case Report Dermatopathology Report Case: [id number] Authorizing Provider: Mirian Whiting DO Collected: 01/20/2025 10:55 AM Ordering Location: [facility] - Received: 01/21/2025 06:36 AM [...] characteristic determined by the Dermatopathology Laboratory at [facility], directed by Dr. Quan Mann. These tests need not be, and therefore are not, approved by the [place] Food and Drug Administration. The tests are used for clinical purposes. Billing Codes Specimen Charges Stain Charges 48847 1 16567 86411 1 1 5 4:25 PM CDT DERMATOPATHOLOGY LABORATORY Embedded Images 5 4:25 PM CDT DERMATOPATHOLOGY LABORATORY Pathology/Cytolo gy TISSUE SPECIMEN FROM SKIN / Unknown 01/20/2025 10:55 AM CDT 01/21/2025 6:36 AM CDT Mirian Whiting DO LAB - PATHOLOGY/CYTOLOGY ORDERABLES Final Result DERMATOPATHOLOGY LABORATORY [facility] - Department of Dermatology [address], [address] [phone] from Last 3 Months Insurance [employer]TH [place] [employer] [id number] ANTHEM Care Teams Machine Bobbin Winder Relationship Specialty Start Date End Date Debra Veliz PA [address] [place] [address] [place] [phone] PCP - General 04/28/20
--- OUTSIDE RECORDS SUMMARY | 2025-04-15 16:54 | XMS_ITS | Data Portability ---
Author Organization [place] [facility] [employer] - [facility] [place] Address [address] [place] [address] Assessment Encounter Date Assessment Date Assessment LastModified by Organization Details LastModified Time 10/24/2024 10/24/2024 Pt here with below diagnosis - pt here for evaluation for their condition, evaluation of their medication use, and discussion for alternative treatments. The documentation details a telehealth encounter with the patient on this date of service. Audio and video communications were used during this encounter to provide a rthv-iu-ipin interactive encounter. Components of this encounter are a culmination of visual and patient-assisted findings. [email or web address] Not available 10/24/2024 13:59:45 10/31/2024 10/31/2024 Pt here with below diagnosis - pt here for evaluation for their condition, evaluation of their medication use, and discussion for alternative treatments. The documentation details a telehealth encounter with the patient on this date of service. Audio and video communications were used during this encounter to provide a jwlz-ox-gyke interactive encounter. Components of this encounter are a culmination of visual and patient-assisted findings. [email or web address] Not available 10/31/2024 13:09:48 Plan of Treatment Reminders Order Date Submit Date Provider Last Modified By Organization Details Last Modified Time Details Appointments None record ed. Lab None record ed. Referral None record ed. Procedures None record ed. Surgeries None record ed. Imaging None record ed. Medication Orders None record ed. Patient TargetsNo targets recorded. Patient Instructions Encounter Date Encounter Id Patient Instructions Last Modified By Organization Details Last Modified Time 10/24/2024 [id number] I have discussed the risks and benefits of Medical Marijuana. Pt understands I am not prescribing this medication. I am certifying that this patient has a condition that is recognized by the state as qualifying for medical marijuana and this recommendation does not constitute a prescription for medical cannabis. Pt understands that my physician written certification form does not guarantee Medical Marijuana certification nor does it endorse the patient as needing medical marijuana. Patient understands that Medical Marijuana is a drug that the federal government has classified cannabis as a Schedule I controlled substance. Schedule 1 substances are defined, in part, as having (1) a high potential for abuse; (2) no currently accepted medical use in treatment in the [place]; and (3) a lack of accepted Safety for use under medical supervision. Federal law prohibits the manufacture, distribution and possession of cannabis even in states, which have modified their state laws to treat cannabis as a medicine. Pt also agrees that me, and the [facility] Team are my treating physicians and that we are in charge of treating the patient's conditions and that the patient will make a good rachele effort to remain under my treatment plan and acknowledge there will be follow up visits from this date forward to monitor the patient's condition. Discussed risks and benefits of Medical Marijuana. I have spent a total of 35 mins discussing the patient's condition, pain/medical management of the patient given their debilitating condition, the risks and benefits of this medication, a history and physical, gathering old medical records to look at the disease processes being evaluated, and answering of all questions. carlie Not available 10/24/2024 13:59:45 10/31/2024 [id number] I have discussed the risks and benefits of Medical Marijuana. Pt understands I am not prescribing this medication. I am certifying that this patient has a condition that is recognized by the state as qualifying for medical marijuana and this recommendation does not constitute a prescription for medical cannabis. Pt understands that my physician written certification form does not guarantee Medical Marijuana certification nor does it endorse the patient as needing medical marijuana. Patient understands that Medical Marijuana is a drug that the federal government has classified cannabis as a Schedule I controlled substance. Schedule 1 substances are defined, in part, as having (1) a high potential for abuse; (2) no currently accepted medical use in treatment in the [place]; and (3) a lack of accepted Safety for use under medical supervision. Federal law prohibits the manufacture, distribution and possession of cannabis even in states, which have modified their state laws to treat cannabis as a medicine. Pt also agrees that me, and the [facility] are my treating physicians and that we are in charge of treating the patient's conditions and that the patient will make a good rachele effort to remain under my treatment plan and acknowledge there will be follow up visits from this date forward to monitor the patient's condition. Discussed risks and benefits of Medical Marijuana. I have spent a total of 35 mins discussing the patient's condition, pain/medical management of the patient given their debilitating condition, the risks and benefits of this medication, a history and physical, gathering old medical records to look at the disease processes being evaluated, and answering of all questions. [email or web address] Not available 10/31/2024 13:09:48 Reason for Referral None Reported. Medical Equipment None Reported. Medications Name Sig Start Date Stop Date Status Note LastModified by Organization Details LastModified Time diltiazem CD 240 mg capsule,extend ed release 24 hr TAKE 1 CAPSULE BY MOUTH ONCE DAILY active Not Available Not Available No t Available propranolol ER 60 mg capsule,24 hr,extended release active Not Available Not Available Not Available doxycycline hyclate 50 mg capsule TAKE 1 CAPSULE BY MOUTH ONCE DAILY active Not Available Not Available No t Available carbidopa ER 50 mg-levodopa 200 mg tablet,extende d release TAKE 1 TABLET BY MOUTH AT BEDTIME FOR 90 DAYS active Not Available Not Available No t Available sertraline 100 mg tablet TAKE 2 TABLETS BY MOUTH ONCE DAILY active Not Available Not Available No t Available omeprazole 20 mg capsule,delaye d release TAKE 1 CAPSULE BY MOUTH ONCE DAILY active Not Available Not Available No t Available hydrochlorothi azide 25 mg tablet TAKE 1 TABLET BY MOUTH ONCE DAILY active Not Available Not Available No t Available carbidopa 25 mg-levodopa 100 mg tablet TAKE 2 TABLETS BY MOUTH THREE TIMES DAILY active Not Available Not Available No t Available metronidazole 0.75 % topical gel APPLY TO FACE TWICE DAILY. active Not Available Not Available No t Available Synthroid 137 mcg tablet TAKE 1 TABLET BY MOUTH ONCE DAILY active Not Available Not Available No t Available rosuvastatin 20 mg tablet TAKE 1 TABLET BY MOUTH ONCE DAILY active Not Available Not Available No t Available omega-3 acid ethyl esters 1 gram capsule TAKE 2 CAPSULES BY MOUTH TWICE DAILY active Not Available Not Available No t Available rasagiline 1 mg tablet TAKE 1 TABLET BY MOUTH ONCE DAILY FOR 90 DAYS active Not Available Not Available No t Available Linzess 145 mcg capsule TAKE 1 CAPSULE BY MOUTH ONCE DAILY active Not Available Not Available No t Available Vitals None Recorded Social History None recorded. Functional Status None recorded. Mental Status None recorded. Family History Nothing Reported. Medical History No medical history recorded. Gynecological HistoryNo gynecological history recorded. Obstetrics History GPAL:G 0 P 0 0 0 0 Past Encounters Encounter ID Performer Location Encounter Start Date Encounter Closed Date Diagnosis/Indication Diagnosis SNOMED-CT Code Diagnosis ICD10 Code Diagnosis Note [id number] Shahla Carbone MD [facility] [address] [place] [address] 10/24/2024 13:50:14 10/24/2024 14:39:21 Parkinson's disease 42582687 G20.A1 [id number] [facility] [address] [place] [address] 10/31/2024 13:09:30 10/31/2024 13:22:21 Parkinson's disease 47042484 G20.A1 Health Concerns Section Related Observation LastModified by Organization Detai ls LastModified Time None Recorded Concern Status LastModified by Organization Details LastModified Time None Recorded Advance Directives Directive None Recorded Payers Insurance Date Sequence Insurance Name Policy Number Policy Haynes Covered Member ID Haynes Member ID Guarantor Name 10/28/2024 1 [facility] [facility] [id number] Jeff Mosley [id number] Jaimie Mosley Notes Date Note Type Note Provider Name and Address Organization Details Recorded Time 10/24/2024 text/html The patient woul d like to discuss medications, the disease, and how to handle it. Pt would also like to discuss alternative treatments to this condition. Pt was referred here for further evaluation and treatment if necessary. Patient has a diagnosis of qualifying condition -PARKINSONS DISEASE Shahla Carbone MD [address], [place], [address], [facility] - [facility] 10/24/2024 14:01:20 10/31/2024 text/html The patient woul d like to discuss medications, the disease, and how to handle it. Pt would also like to discuss alternative treatments to this condition. Pt was referred here for further evaluation and treatment if necessary. Patient has a diagnosis of qualifying condition -PARKINSON'S DISEASE Shahla Carbone MD [address], [place], [address], [facility] - [facility] 10/31/2024 13:10:14 OBGyn Episode No OBEpisode recorded.
== END 2025-04-15 13:58 | disposition home or self-care (01) ==
LOC: ANHIMG 14:01
PROVIDERS: PCP Physician Assistant; Visit Provider Nurse Practitioner
DX: Z78.0 Asymptomatic menopausal state (principal); M85.88 Other specified disorders of bone density and structure, other site
CPT/HCPCS: 77080

== ENCOUNTER 2025-10-06 03:25 | Day surgery (SDC) | payer BC, SELFPAY ==
[2025-09-17 11:03] VITALS: BMI 34.5
--- OUTSIDE RECORDS SUMMARY | 2025-10-06 03:27 | XMS_ITS | Encounter Summary ---
Author Organization [facility] Address [address] [place] [address] Care Team Providers Care Parole Or Probation Officer Name Role Phone Simin Gunter MD Primary Care Provider [phone] Debra Veliz Primary Care Pr ovider Reason for Visit * Reason Onset Date Comments MEDICATION REFILL 03/10/2019 Encounter Details Date Type Department Care Team (Late Contact Info) Description 03/10/2019 Refill [facility] [address] [place] [address] Jessica Benitez APRN-[address] [phone] MEDICATION REFILL Social History Tobacco Use Types Packs/Day Years Used Date Smoking Tobacco: Never Smokeless Tobacco: Never Alcohol Use Standard Drinks/Week Comments No 0 (1 standard drink = 0.6 oz pur e alcohol) Comments No Sex and Gender Information Value Date Recorded Sex Assigned at Female 12/27/2023 4:35 PM REHABILITATION THERAPY TECHNICIAN Legal Sex Female 6:13 AM REHABILITATION THERAPY TECHNICIAN Gender Identity Female 12/27/2023 4:35 PM REHABILITATION THERAPY TECHNICIAN Sexual Orientation Straight 12/27/2023 4: 35 PM REHABILITATION THERAPY TECHNICIAN documented as of this encounter Plan of Treatment Upcoming Encounters Date Type Department Care Team (Late Contact Info) Description 11/11/2025 2:30 PM REHABILITATION THERAPY TECHNICIAN Office Visit [facility] [address] [place] [phone] Anjum Mendoza MD [address] [phone] documented as of this encounter Visit Diagnoses Diagnosis Parkinson's disease (HCC) documented in this encounter Care Teams Parole Or Probation Officer Relationship Specialty Start Date End Date Simin Gunter MD [address] [place], [place] [phone] PCP - General 02/26/18 04/27/20 Debra Veliz PA [address] [place] [address] PCP - General 04/28/20 documented as of this encounter
--- OUTSIDE RECORDS SUMMARY | 2025-10-06 03:27 | XMS_ITS | Data Portability ---
Author Organization [facility]/K[facility] (11) Address [address] [facility] [address] [place] [address] Care Team Providers Care Orthodontic Laboratory Technician Name Role Phone IV & RESPIRATORY CARE [...] 11/08/19 17 Sleep Study completed Dipesh Graff [facility] 11/09/2016 11:52:26 Adenoid Surgery completed MAVERICK ARTEAGA MD, Shagufta CANDELARIO.C.C.P. [facility] [address], [address], [facility] 10/06/2016 14:16:33 Cholecystectomy completed MAVERICK ARTEAGA MD, ANDREE F.C.C.P. [facility] [address], [address], [facility]/KV/SMS 10/06/2016 14:16:40 Nsl/sins ndsc frnt tiss rmvl completed MAVERICK DILLARD MD, Shagufta CANDELARIO.C.C.P. [facility] [address], [address], [place] - [facility] 10/06/2016 14:16:56 Imaging Results None recorded. Procedure Notes None recorded. Medical Equipment None Reported. Allergies Allergen ID Allergen Name Allergen Category Reaction Reaction Severity Criticality Documentation Date Start Date Code Code System Note Provider Name and Address Organization Details Recorded Time 6739 Product containin g penicilli n (product) medicatio n Not available Not available Not available 10/06/2016 71833 8001 ODETET DILLARD MD, ANDREE F.C.C.P. NPI [id number] [address], [address] [place] [address] 2, [place] - [facility] 6 14:14:01 6740 Substance with sulfonami de structure and antibacte rial mechanism of action (substanc e) medicatio n Not available Not available Not available 10/06/2016 10571 8003 ODETTE DILLARD MD, Shagufta CANDELARIO.C.C.P. NPI [id number] [address], [address] [place] [address] 2, [place] - [facility] 6 14:14:16 6741 codeine medicatio n Not available Not available Not available 10/06/2016 2670 RxNorm MAVERICK DILLARD MD, ANDREE F.C.C.P. NPI [id number] [address] [place] [address], [address] [place] [address], [place] - [facility] 6 14:14:52 Medications [...] Available Not Available Not Available Fluzone Quad 4998-2399 (PF) 60 mcg (15 mcg x 4)/0.5 mL IM suspension active Not Available Not Available N ot Available Vitals None Recorded Social History Question Answer Notes LastModified by Organizat ion Details LastModified Time Tobacco Smoking Status Never Smoker MAVERICK DILLARD MD, ANDREE, F.C.C.P. I [id number] [address] [place] [address], [phone], [facility] - I/[facility] 10/06/2016 14:15:51 Marital Status marianela Informatio n not available 10/06/2016 How Many [...] Diagnosis SNOMED-CT Code Diagnosis ICD10 Code Diagnosis IMO Codes Diagnosis Note [id number] MAVERICK DILLARD MD, DABLos AGUILAR [facility] (88) [address] [place] [address] 10/06/2016 14:00:18 10/06/2016 14:48:23 Obstructive sleep apnea of adult [id number] 103 G47.33 [address] [facility] [place], [facility] (11) [address] [place] [address] 11/08/2016 09:39:11 11/09/2016 11:31:23 Obstructive sleep apnea of adult [id number] 103 G47.33 11894 [facility] (11) [address] [facility] [address] [place] [address] 11/13/2016 12:27:10 11/13/2016 15:20:12 [address]272 [facility] (11) [address] [facility] [address] [place] [address] 11/20/2016 09:59:00 11/20/2016 10:19:26 24594 [facility] (11) [address] [facility] [address] [place] [address] 11/27/2016 09:55:05 11/27/2016 11:25:17 89394 [facility] (11) [address] [facility] [address] [place] [address] 11/30/2016 10:12:42 11/30/2016 10:20:50 36169 [facility] (11) [address] [facility] [address] [place] [address] 12/07/2016 11:09:21 12/07/2016 11:26:44 25945 [facility] (11) [address] [facility] [address] [place] [address] 01/10/2017 09:15:32 01/10/2017 09:27:08 [address] [facility] (11) [address] [facility] [address] [place] [address] 2017 09:41:55 2017 09:48:50 Health Concerns Section Related Observation LastModified by Organization Detai ls LastModified Time None Recorded Concern Status LastModified by Organization Details LastModified Time None Recorded Advance Directives Directive None Recorded Payers Insurance Date Sequence Insurance Name Policy Number Policy Haynes Covered Member ID Haynes Member ID Guarantor Name 06/26/2017 1 [place] [id number] Jeff Mosley [id number] Jaimie Mosley 08/24/2017 1 [place] [id number] Jeff Mosley [id number] Jaimie Mosley 06/21/2017 2 [place] [id number] Jaimie Mosley [id number] Jaimie Mosley Notes Date Note Type Note Provider Name and Address Organization Details Recorded Time 11/27/2016 text/html PAP SetupReporte d by PatientPAP therapyFor the patient states that the interface is, patient reportsthe patient has worn cpap in the past. orginally set up 2008but reportscomfortable and not experiencing leaks.,patient verbalizes understanding that there were other options for dme companies and has selected [employer]cleaning instructions were reviewed and provided to the patient.,patient acknowledged understanding of their financial responsibility.,patient verbalized understanding importance to use pap therapy when ever sleeping (including naps) and failure to maintain miniumum adherence requirements of (70% usage/min 4 hours nightly) may result in increased financial responsibility.,the patients has made a follow up appointment with their doctor.,authorization #[id number],authorizatio n expires02/24/2017, andpatient registered and entered into Zapproved. For the patient was [facility] sn# [id number] apap with a pressure setting of,6-16 (on 8cm @ home cm h2o,the patient was fit with nasal mask, andper patient request(pt has pillows at home but they leak a lot. wanted the dreamwear. great fit during set up).Great set up , went over data cost cleaning and ahi. jennifer jaimes, [place] - [facility] 11/27/2016 11:22:28 11/30/2016 text/html CPAP f/upReporte d by PatientHPIFor cpap, patient reportsthe patient reports feeling better with cpap,the patient reports no new medical problems.,no surgeries or hospitalizations reported since last visit.,the patient does not notice mask leaking.,snoring is not observed when cpap is used.,patient is using cpap regularly..,patient estimates 6 hours of pap use nightly.,does not remove cpap mask during the night,wakes up rested,no headache,no problems with sleep maintenance,no ear pain,no ear pressure, andno trouble with sleep initiation.DOING VERY WELL. She is getting up to use the restroom. She staes she drinks a lot of water. THe frequency is decreasing however . She also will increase her CALEB and use the (warmup button) I went over her download with her as well. Very happy. jennifer Ayaka MARIA VICTORIA Eddy [facility] 11/30/2016 10:17:58 12/07/2016 text/html I called pt at our time today to discuss her progress after 2 weeks. I had to leave a message on her voice mail to please call me back with her progress. MARIA VICTORIA Jonas [facility] 12/07/2016 11:10:49 01/10/2017 text/html I called pt today to be sure my suggestions have worked [...] with her progress and or problmes. rowdy MARIA VICTORIA Menon [facility] 01/10/2017 09:24:57 2017 text/html called pt today [...] cm with an AHI=.6/hr.. MARIA VICTORIA Jonas [facility] 2017 09:47:18 OBGyn Episode No OBEpisode recorded.
--- OUTSIDE RECORDS SUMMARY | 2025-10-06 03:27 | XMS_ITS | Clinical Summary ---
Author Organization [facility] Ludia Address [address] [place] [address] Care Team Providers Care Supervisor Plasma Name Role Phone Debra Veliz Primary Care Pr ovider Source Comments [facility],non-owned Affiliates and Associated Physician Practices is amultiple site organization consisting of ambulatory clinics and hospital sitesin [place], [place], [place] and [place]. This disclosure is being madepursuant to the Care Everywhere program and may not contain all information available regarding this patient. Last updated 18.[facility] Allergies Active Allergy Reactions Criticality Noted Date [...] by mouth once daily Active Cholecalcifer ol (ZFJ-I-YRUXML N FORTE PO) Take 200 mg by mouth once daily Active levothyroxine (SYNTHROID) 137 MCG tablet Take 1 tablet by mouth once daily 90 tablet 4 09/01/20 19 Active hydroCHLOROth iazide (HYDRODIURIL) 25 MG tablet hydrochlorothiazide 25 mg tablet Active cholecalcifer ol 25 MCG (1000 UNITS)/0.03ML liquid Crv-U-Dkxwvis Forte 50 mcg/drop (2,000 unit/drop) oral drops TAKES 2 DROPLETTS PO DAILY Active glucose (DEX4) 4 g chew tablet Take 4 g by mouth as needed for Other Active Tangent-3 Fatty Acids (FISH OIL PO) Active rosuvastatin (CRESTOR) 20 MG tablet TAKE 1 TABLET BY MOUTH ONCE DAILY IN THE EVENING 03/16/20 21 Active dilTIAZem SR 24hr (Dilacor XR) 240 MG capsule Take 1 (one) capsule by mouth once daily Activ e carbidopa-lev odopa (Sinemet) 25-100 MG tabletIndicat ions:Idiopath ic Parkinson's disease (HCC) Take 2 (two) tablets by mouth 3 times daily 540 tablet 3 09/22/20 25 Active carbidopa-lev odopa CR (Sinemet CR) 50-200 MG tabletIndicat ions:Parkinso n's Disease Take 1 (one) tablet by mouth at bedtime Reasons: Parkinson's Disease 90 tablet 3 09/22/20 25 Active rasagiline (Azilect) 1 MG tabletIndicat ions:Parkinso n's Disease Take 1 (one) tablet by mouth once daily Reasons: Parkinson's Disease 90 tablet 3 09/22/20 25 Active rOPINIRole (Requip) 1 MG tabletIndicat ions:Restless Leg Syndrome Take 1 (one) tablet by mouth at bedtime Reasons: Restless Leg Syndrome 90 tablet 3 09/22/20 25 2025 Active Multiple Vitamins-Mine rals (MULTI COMPLETE PO) 2024 Disconti nued(Tx Complete ) amLODIPine (NORVASC) 2.5 MG tablet TAKE 1 TABLET BY MOUTH ONCE DAILY IN THE EVENING 12/17/19 20 2024 Disconti nued(Lis t Clean-Up ) busPIRone (BUSPAR) 5 MG tablet buspirone 5 mg tablet Take 1 tablet twice a day by oral route. 2024 Disconti nued(Lis t Clean-Up ) omeprazole (PriLOSEC) 20 MG capsule Take 1 (one) capsule by mouth daily before breakfast 2024 Disconti nued(Lis t Clean-Up ) propranolol ER 24hr (Inderal LA) 60 MG capsuleIndica tions:Tremor Take 1 (one) capsule by mouth once daily Reasons: Involuntary Quivering 90 capsule 3 06/25/202024 Disconti nued(Tx Complete ) carbidopa-lev odopa CR (Sinemet CR) 50-200 MG tabletIndicat ions:Parkinso n's Disease Take 1 (one) tablet by mouth at bedtime Reasons: Parkinson's Disease 90 tablet 3 05/19/202024 Disconti nued(Reo rder) carbidopa-lev odopa (Sinemet) 25-100 MG tabletIndicat ions:Idiopath ic Parkinson's disease (HCC) Take 2 (two) tablets by mouth 3 times daily 540 tablet 3 05/19/202024 Disconti nued(Reo rder) rasagiline (Azilect) 1 MG tabletIndicat ions:Parkinso n's Disease Take 1 (one) tablet by mouth once daily Reasons: Parkinson's Disease 90 tablet 3 05/19/202024 Disconti nued(Reo rder) rOPINIRole (Requip) 1 MG tabletIndicat ions:Restless Leg Syndrome Take 1 (one) tablet by mouth at bedtime Reasons: Restless Leg Syndrome 90 tablet 3 05/19/202024 Disconti nued(Reo rder) Active Problems Problem Noted Date Diagnosed Date [...] 9 Parkinson's disease 10/23/2018 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 JHONY on CPAP 05/07/2017 S/P FESS (functional endoscopic sinus surgery) 0 05/07/2017 Sensorineural hearing loss (SNHL) of both ears 0 05/07/2017 Tremor 05/07/2017 Dizziness 05/07/2017 Hypothyroidism 03/16/2017 Goiter 03/16/2017 Thyroid nodule 03/16/2017 Acute upper respiratory infection, unspecified 0 01/18/2016 Resolved Problems Problem Noted Date Diagnosed Date Resolved Date Upper respiratory tract infection 01/02/2019 03/12/2019 Encounters Date Type Department Care Team Description 09/22/2025 Refill [facility] [address] [place] [address], [place] [address] Anjum Mendoza MD MEDICATION REFILL 08/04/2025 Refill [facility] [address] [place] [address], [place] [address] Anjum Mendoza MD Refill Request from Last 3 Months Immunizations Immunization Administration [...] Sex Assigned at Female 12/27/2023 4:35 PM SENIOR CLINICAL STUDY MANAGER Legal Sex Female 6:13 AM SENIOR CLINICAL STUDY MANAGER Gender Identity Female 12/27/2023 4:35 PM SENIOR CLINICAL STUDY MANAGER Sexual Orientation Straight 12/27/2023 4: 35 PM SENIOR CLINICAL STUDY MANAGER Last Filed Vital Signs Vital Sign Reading Time Taken Comments Blood Pressure 139/76 11/19/2024 3:35 PM SENIOR CLINICAL STUDY MANAGER Pulse 60 11/19/2024 3:35 PM SENIOR CLINICAL STUDY MANAGER Temperature 36.1 C (97 F) 09/19/2023 10:04 AM SENIOR CLINICAL STUDY MANAGER Respiratory Rate 16 02/26/2019 2:13 PM CDT Oxygen Saturation 97% 11/19/2024 3:35 PM SENIOR CLINICAL STUDY MANAGER Inhaled Oxygen Concentration - - Weight 96.2 kg (212 lb) 11/19/2024 3:35 PM SENIOR CLINICAL STUDY MANAGER Height 170.2 cm (5' 7) 12/24/2019 11:11 AM SENIOR CLINICAL STUDY MANAGER Body Mass Index 33.2 12/24/2019 11:11 AM SENIOR CLINICAL STUDY MANAGER Plan of Treatment Upcoming Encounters Date Type Department Care Team (Late st Contact Info) Description 11/11/2025 2:30 PM SENIOR CLINICAL STUDY MANAGER Office Visit [facility] - Neurology [address] [place] [address], [facility] [place] [phone] Anjum Mendoza MD [address] [place] [address] [place] [phone] Health Maintenance Due Date Last Done Comments COLOGUARD (AGES 45-75) - COLON CA SCREENING 1963 COLON MONITORING 1963 COLONOSCOPY - COLON CA SCREENING 1963 CT COLONOGRAPHY - COLON CA SCREENING 1963 Colorectal Cancer Screening 1963 FIT - COLON CA SCREENING 1963 FLEX SIG - COLON CA SCREENING 1963 MAMMOGRAM 1963 HIV SCREENING 1978 HEPATITIS C SCREENING 01/20/1981 Cervical Cancer Screening 01/26/1984 PAP SMEAR 01/26/1984 PAP with HPV 1993 PNEUMOCOCCAL VACCINE 50+ (1 of 1 - PCV) 2013 DEPRESSION SCREENING 11/05/2024 COVID-19 VACCINE ( season) 2025 08/20/2023, 08/31/2021, 01/29/2021, Additional history exists INFLUENZA VACCINE (#1) 2025 , 08/20/2023, 08/26/2021, Additional history exists DTAP/TDAP/TD VACCINES (2 - Td or Tdap) 09/28/2026 09/28/2016 Respiratory Syncytial Virus (RSV) Vaccine Pt: or over 60 yrs (1 - 1-dose 75+ series) 2038 ZOSTER VACCINE Completed 07/04/2018, 03/29/2018 HEPATITIS B VACCINE Aged Out No longe [...] patient's age to complete this topic Insurance [employer] [employer]ILDS [id number] [place]EE [place] [employer]DS [id number] ANTHEM Care Teams Supervisor Plasma Relationship Specialty Start Date End Date Debra Veliz PA [address] [place] [address] PCP - General 04/28/20
--- OUTSIDE RECORDS SUMMARY | 2025-10-06 03:27 | XMS_ITS | Encounter Summary ---
Author Organization [facility] Address [address] [facility] [place] [address] Care Team Providers Care Cloth Doffer Name Role Phone Debra Veliz Primary Care Pr ovider Encounter Details Date Type Department Care Team (Late st Contact Info) Description 05/25/2025 Lab Requisition [facility] [address] [place] [phone] Mirian Whiting DO [address] [place] [address] [address] [place] [address] Social History Tobacco Use Types Packs/Day Years Used Date Smoking Tobacco: Never Smokeless Tobacco: Never Alcohol Use Standard Drinks/Week Comments No 0 (1 standard drink = 0.6 oz pur e alcohol) Comments No Sex and Gender Information Value Date Recorded Sex Assigned at Female 12/27/2023 4:35 PM SUPERVISOR SPEECH Legal Sex Female 6:13 AM SUPERVISOR SPEECH Gender Identity Female 12/27/2023 4:35 PM SUPERVISOR SPEECH Sexual Orientation Straight 12/27/2023 4: 35 PM SUPERVISOR SPEECH documented as of this encounter Plan of Treatment Upcoming Encounters Date Type Department Care Team (Late Contact Info) Description 11/11/2025 2:30 PM SUPERVISOR SPEECH Office Visit [facility] - Neurology [address] [place] [phone] Anjum Mendoza MD [address] [place] [address] [place] [address] documented as of this encounter Procedures Procedure Name Priority Date/Time Associated Diagnosis Comments DERMATOPATHOLOGY Routine 05/25/2025 1:23 PM CDT documented in this encounter Results * DERMATOPATHOLOGY (05/25/2025 1:23 PM CDT) Case Report Dermatopathology Report Case: [id number] Authorizing Provider: Mirian Whiting DO Collected: 05/25/2025 01:23 PM Ordering Location: [facility] - Received: 05/26/2025 06:40 AM DermPath Lab Pathologist: Carmen Walker MD Specimen: Skin, left lower buttock 4:35 PM CDT DERMATOPATHOLOGY LABORATORY Final Diagnosis Specimen A. SKIN, left lower buttock: EPIDERMOID CYST WITH EVIDENCE OF RUPTURE (L72.0) DERMAL FIBROSIS (L90.5) 4:35 PM CDT DERMATOPATHOLOGY LABORATORY at 1635 CDT Clinical History R/O Cyst; Growing 4:35 PM CDT DERMATOPATHOLOGY LABORATORY Gross Description Specimen A: Received is one formalin filled container labeled with the patient's name and designated left lower buttock. The specimen consists of a 35u20q9 mm piece of skin. The specimen is serially sectioned and a community engagement representative section is submitted in cassette 1. Jar 1. 4:35 PM CDT DERMATOPATHOLOGY LABORATORY Microscopic Description Specimen A. SKIN, left lower buttock: Within the dermis, there is a space lined by epithelium that resembles normal epidermis and the infundibular portion of the hair follicle. Surrounding this is an infiltrate with neutrophils, histiocytes, and multinucleated giant cells. There is also surrounding dermal fibrosis. 4:35 PM CDT DERMATOPATHOLOGY LABORATORY Disclaimer An external and internal positive and negative controls are appropriate for the histochemical, immunohistochemical and immunofluorescence stain(s) in this case (if any), except where stated explicitly. The performance characteristics of the stain(s) cited in this report were developed and its performance characteristic determined by the Dermatopathology Laboratory at [facility], directed by Dr. Quan Mann. These tests need not be, and therefore are not, approved by the [place] Food and Drug Administration. The tests are used for clinical purposes. Billing Codes Specimen Charges Stain Charges 02303 1 5 4:35 PM CDT DERMATOPATHOLOGY LABORATORY Embedded Images 5 4:35 PM CDT DERMATOPATHOLOGY LABORATORY Pathology/Cytolo gy TISSUE SPECIMEN FROM SKIN / Unknown 05/25/2025 1:23 PM CDT 05/26/2025 6:40 AM CDT us Miiran Whiting DO LAB - PATHOLOGY/CYTOLOGY ORDERABLES Final Result DERMATOPATHOLOGY LABORATORY [facility] - Department of Dermatology [facility] Medicine [address] [place] [address], [address] [phone] documented in this encounter Visit Diagnoses Not on filedocumented in this encounter Care Teams Cloth Doffer Relationship Specialty Start Date End Date Debra Veliz PA [address] [place] [phone] PCP - General 04/28/20 documented as of this encounter
--- OUTSIDE RECORDS SUMMARY | 2025-10-06 03:27 | XMS_ITS | Clinical Summary ---
Author Organization [facility] Address [address] [place] [address] Care Team Providers Care Senior Radiation Therapist Name Role Phone Simin Gunter MD Primary Care Provider [phone] Social History Tobacco Use Types Packs/Day Years Used Date Smoking Tobacco: Never Assessed Comments Unknown Sex and Gender Information Value Date Recorded Sex Assigned at Not on file Legal Sex Female 7:56 PM CDT Gender Identity Not on file Sexual Orientation Not on file Plan of Treatment Health Maintenance Due Date Last Done Comments Cervical Cancer Screening Pa p Smear (Age 30 to 64) Every 3 Years 1963 Colorectal Cancer Screening Colonoscopy (10 Years) 1963 Annual Physical 1966 Hepatitis C 1981 DTaP, Tdap and Td Vaccines ( 1 - Tdap) 1982 Cervical Cancer Screening Pa p with HPV Testing (Age 30 to 64) Every 5 Years 1993 Cervical Cancer Screening with HPV 1993 Mammogram Screening 2003 Pneumococcal Vaccine: 50+ Ye ars (1 of 1 - PCV) 2013 Zoster Vaccines (1 of 2) 2013 COVID-19 Vaccine ( - 2024-2 6 season) 2025 Influenza Adult (#1) 2025 RSV Immunization or 60+ Years (1 - 1-dose 75+ series) 2038 Hepatitis A Vaccines Aged Out No long er eligible based on patient's age to complete this topic Meningococcal B Vaccine Aged Out No l onger eligible based on patient's age to complete this topic Meningococcal Vaccine Aged Out No zander kristofer eligible based on patient's age to complete this topic RSV Immunizations Under 20 Months Aged Out No longer eligible based on patient's age to complete this topic Care Teams Senior Radiation Therapist Relationship Specialty Start Date End Date Simin Gunter MD PCP - General 11/24/11
--- OUTSIDE RECORDS SUMMARY | 2025-10-06 03:27 | XMS_ITS | Clinical Summary ---
Author Organization [facility] Office Center Address [address] [place] [address] Care Team Providers Care Director Post Name Role Phone Debra Villanueva Primary Care Pr ovider Simin Gunter MD Unavailable [phone] Allergies Active Allergy Reactions Criticality Noted Date [...] into the vagina 02/11 Active influenza quadrivalent 5070-9599 (Fluzone Quad 6852-3384, PF,) 60 mcg (15 mcg x 4)/0.5 [...] D3, 50 mcg/drop (2, 000 unit/drop) drops [id number]-Z-Anjcirp Forte 50 mcg/drop (2,000 unit/drop) oral drops [...] omega-3 acid ethyl esters 1 gram capsule 022 Active omega-3 fatty acids (LOVAZA) 1 gram capsule 022 Active predniSONE (DELTASONE) 50 mg tablet prednisone 50 mg tablet Active predniSONE (DELTASONE) 5 mg tablet 022 Active Active Problems No known active problems Surgical History Surgery Date Site/Laterality Comments DC TONSILLECTOMY PRIMARY/SEC ONDARY <AGE 10 Tonsillectomy - [...] on file Legal Sex Female 2:06 AM HEALTHCARE INSURANCE SALES AGENT Gender Identity Not on file Sexual Orientation Not on file Occupation Industry Job Start Date Job End Date retired Not on file Not on file Not on file Last Filed Vital Signs Vital Sign Reading Time Taken Comments Blood Pressure 139/82 07/13/2022 9:27 AM CDT Pulse 75 07/13/2022 9:27 AM CDT Temperature 36.7 C (98.1 F) 12/13/2019 1:22 PM HEALTHCARE INSURANCE SALES AGENT Respiratory Rate - - Oxygen Saturation 99% 12/13/2019 1:22 PM HEALTHCARE INSURANCE SALES AGENT Inhaled Oxygen Concentration - - Weight 117.5 kg (259 lb) 07/13/2022 9:27 AM CDT Height 170.2 cm (5' 7) 07/13/2022 9:27 AM CDT Body Mass Index 40.57 07/13/2022 9:27 AM CDT Plan of Treatment Not on file Insurance [employer] P[employer] Care Teams Director Post Relationship Specialty Start Date End Date Debra Villanueva PA PCP - General 12/13/19 Simin Gunter MD 12/13/19
--- OUTSIDE RECORDS SUMMARY | 2025-10-06 03:27 | XMS_ITS | Encounter Summary ---
Author Organization [facility] Address [address] [place] [address] Care Team Providers Care Power Hammer Operator Name Role Phone Simin Gunter MD Primary Care Provider [phone] Debra Veliz Primary Care Pr ovider Encounter Details Date Type Department Care Team (Late Contact Info) Description 10/08/2018 Lab Requisition [facility] [address] [place] [phone] Rosie Munoz MD [address] [place] [address] [address] [place] [address] Social History Tobacco Use Types Packs/Day Years Used Date Smoking Tobacco: Never Smokeless Tobacco: Never Alcohol Use Standard Drinks/Week Comments No 0 (1 standard drink = 0.6 oz pur e alcohol) Comments No Sex and Gender Information Value Date Recorded Sex Assigned at Female 12/27/2023 4:35 PM CARPET INSTALLER HELPER Legal Sex Female 6:13 AM CARPET INSTALLER HELPER Gender Identity Female 12/27/2023 4:35 PM CARPET INSTALLER HELPER Sexual Orientation Straight 12/27/2023 4: 35 PM CARPET INSTALLER HELPER documented as of this encounter Plan of Treatment Upcoming Encounters Date Type Department Care Team (Late Contact Info) Description 11/11/2025 2:30 PM CARPET INSTALLER HELPER Office Visit [facility] - Neurology [address] [place] [phone] Anjum Mendoza MD [address] [place] [address] [place] [address] documented as of this encounter Procedures Procedure Name Priority Date/Time Associated Diagnosis Comments DERMATOPATH TECHNICAL REPORT Routine 10/04/2018 12:00 AM CARPET INSTALLER HELPER documented in this encounter Results * DERMATOPATH TECHNICAL REPORT (10/04/2018 12:00 AM CARPET INSTALLER HELPER) Case Report Dermatopathology Report Case: [id number] Authorizing Provider: Rosie Munoz MD Collected: 10/04/2018 12:00 AM Pathologist: Eric Mnan MD Received: 10/08/2018 06:45 AM Specimen: Skin, left inner thigh 4:42 PM CARPET INSTALLER HELPER DERMATOPATHOLOGY LABORATORY Clinical History R/O nevus, growing, irritated. 4:42 PM [facility] DERMATOPATHOLOGY LABORATORY Gross Description Specimen A: Received is one formalin filled container labeled with the patient's name and designated left inner thigh. The specimen consists of a shave measuring [id number], bisected. Jar 0. [facility] Dermatopathology Laboratory performed the technical component only. 8 4:42 PM [facility] DERMATOPATHOLOGY LABORATORY Embedded Images 4:42 PM [facility] DERMATOPATHOLOGY LABORATORY DISCLAIMER An external and internal positive and negative controls are appropriate for the histochemical, immunohistochemical and immunofluorescence stain(s) in this case (if any), except where stated explicitly. The performance characteristics of the stain(s) cited in this report were developed and its performance characteristic determined by the Dermatopathology Laboratory at [facility]. These tests need not be, and therefore are not, approved by the [place] Food and Drug Administration. The tests are used for clinical purposes. 4:42 PM [facility] DERMATOPATHOLOGY LABORATORY at [address] CARPET INSTALLER HELPER Pathology/Cytolog y TISSUE SPECIMEN FROM SKIN / Unknown 10/04/2018 10/08/2018 6:45 AM CARPET INSTALLER HELPER us Rosie Munoz MD LAB - PATHOLOGY/CYTOLOGY ORD ERABLES Final Result DERMATOPATHOLOGY LABORATORY [facility] - Department of Dermatology [address] [facility], [address]th Floor Lab [address] [phone] documented in this encounter Visit Diagnoses Not on filedocumented in this encounter Care Teams Power Hammer Operator Relationship Specialty Start Date End Date Simin Gunter MD [address] [place] [address] PCP - General 02/26/18 04/27/20 Debra Veliz PA [address] [place] [phone] PCP - General 04/28/20 documented as of this encounter
--- OUTSIDE RECORDS SUMMARY | 2025-10-06 03:29 | XMS_ITS | Encounter Summary ---
Author Organization [facility] Address [address] [facility] [place] [address] Care Team Providers Care Boarder Steam Name Role Phone Debra Veliz Primary Care Pr ovider Reason for Visit * Reason Onset Date Comments MEDICATION REFILL 12/25/2023 Encounter Details Date Type Department Care Team (Late st Contact Info) Description 12/25/2023 Refill [facility] - Neurology [address] [place] [phone] Diana Hardwick MD MEDICATION REFILL Social History Tobacco Use Types Packs/Day Years Used Date Smoking Tobacco: Never Smokeless Tobacco: Never Alcohol Use Standard Drinks/Week Comments No 0 (1 standard drink = 0.6 oz pur e alcohol) Comments No Sex and Gender Information Value Date Recorded Sex Assigned at Female 12/27/2023 4:35 PM RAVELER Legal Sex Female 6:13 AM RAVELER Gender Identity Female 12/27/2023 4:35 PM RAVELER Sexual Orientation Straight 12/27/2023 4: 35 PM RAVELER documented as of this encounter Miscellaneous Notes [...] 1 (one) tablet by mouth at bedtime LER documented in this encounter Plan of Treatment Upcoming Encounters Date Type Department Care Team (Late st Contact Info) Description 11/11/2025 2:30 PM RAVELER Office Visit [facility] - Neurology [address] [place] [address], [facility] [place] [phone] Anjum Mendoza MD [address] [place] [phone] documented as of this encounter Visit Diagnoses Diagnosis Parkinson's disease (HCC) documented in this encounter Care Teams Boarder Steam Relationship Specialty Start Date End Date Debra Veliz PA [address] [place] [phone] PCP - General 04/28/20 documented as of this encounter
--- OUTSIDE RECORDS SUMMARY | 2025-10-06 03:29 | XMS_ITS | Data Portability ---
Author Organization [facility], Main Office Address [address] [place] [address] Assessment No assessment recorded. Plan of Treatment Reminders Order Date Submit Date Provider Last Modified By Organization Details Last Modified Time Details Appointments None recorded. Lab HbA1c (hemoglobi n A1c), blood 2022 023 [email or web address] [facility], [address], [address], [place], [address], 4 11:06:52 insulin, serum 2022 023 [email or web address] [facility], [address], [place], [address], 4 11:06:52 lipid panel, serum 2022 023 [email or web address] [facility], [address], [place], [address], 4 11:06:52 TSH + free T4, serum 2022 023 [email or web address] [facility], [address], [place], [address], 4 11:06:51 T3, free, serum or plasma 2022 023 [email or web address], [address], [place], [address], 4 11:06:51 CMP, serum or plasma 2022 023 [email or web address] [facility], [address], [place], [address], 4 11:06:52 CBC w/ auto diff 2022 023 [email or web address] [facility], [address], [place], [address], 3 07:17:31 Referral None recorded. Procedures None recorded. Surgeries None recorded. Imaging None recorded. Medication Orders omega-3 acid ethyl esters 1 gram capsule 2022 023 [facility] [address] [place], [address], 3 16:34:59 Unithroid 137 mcg tablet 2022 023 [email or web address] [facility] [address] [place], [address], 3 17:40:35 Patient TargetsNo targets recorded. Patient InstructionsNo instructions recorded. Reason for Referral None Reported. Results Created Date Observation Date Name Description Value Unit Range Abnormal Flag Note LastModifiedBy Organization Detail LastModifiedTime 09/13/20 22 09/15/2022 TSH+F REE T4 TSH 3.89 mIU/L 0.40-4 .50 normal Not Available [facility] [address], [address], 09/15/2022 19:55:34 09/13/20 22 09/15/2022 TSH+F REE T4 T4, free 1.1 NG/dL 0.8-1. 8 normal Not Available [facility] [address], [address], 09/15/2022 19:55:34 09/13/20 22 09/15/2022 T3, FREE T3, free 3.0 pg/mL 2.3-4. 2 normal Not Available [email or web address] [address], [address], 09/15/2022 19:55:34 09/13/20 22 09/15/2022 VITAM IN B12/F OLATE , SERUM PANEL vitamin B12 519 pg/mL 200-11 00 normal Not Available [address], [address], 09/15/2022 19:55:33 09/13/20 22 09/15/2022 VITAM IN B12/F OLATE , SERUM PANEL folate, serum 11.2 NG/mL normal Refer ence Range Low: <3.4 Borde rline : 3.4-5 .4 Almita l: >5.4 Not Available [address], [address], 09/15/2022 19:55:33 09/13/20 22 09/15/2022 DHEA SULFA TE DHEA sulfate 42 mcg/d L 5-167 normal DHEA- S value s fall with advan cing age. For refer ence, the refer ence inter vals for 31-40 year old patie nts are: Male: 93-41 5 mcg/d L Femal e: 19-23 7 mcg/d L Not Available [address], [address], 09/15/2022 19:55:33 09/13/20 22 09/15/2022 THYRO ID PEROX IDASE ANTIB ODIES thyroid peroxidase antibodies 60 IU/mL <9 high Not Available [address], [address], 09/15/2022 19:55:32 09/13/20 22 09/15/2022 COMPR EHENS ANALY METAB OLIC PANEL glucose 80 mg/dL 65-99 normal Fasti ng refer ence inter mckenna Not Available [address], [address], 09/15/2022 19:55:32 09/13/20 22 09/15/2022 COMPR EHENS ANALY METAB OLIC PANEL urea nitrogen (BUN) 16 mg/dL 7-25 normal Not Available [address] [address] [place], [address], 09/15/2022 19:55:32 09/13/20 22 09/15/2022 COMPR EHENS ANALY METAB OLIC PANEL creatinine 0.61 mg/dL 0.50-1 .03 normal Not Available [facility] [address] [place], [address], 09/15/2022 19:55:32 09/13/20 22 09/15/2022 COMPR EHENS [...] kdoqi /gfr% 5Fcal culat or Not Available [address] [address] [place], [address], 09/15/2022 19:55:32 09/13/20 22 09/15/2022 COMPR EHENS ANALY METAB OLIC PANEL BUN/creatini ne ratio not applic able (calc ) 6-22 Not Available [address] [address] [place], [address], 09/15/2022 19:55:32 09/13/20 22 09/15/2022 COMPR EHENS ANALY METAB OLIC PANEL sodium 140 mmol/ L 135-14 6 normal Not Available [facility] [address] [address] [place], [address], 09/15/2022 19:55:32 09/13/20 22 09/15/2022 COMPR EHENS ANALY METAB OLIC PANEL potassium 4.0 mmol/ L 3.5-5. 3 normal Not Available [facility] [address], [address], 09/15/2022 19:55:32 09/13/20 22 09/15/2022 COMPR EHENS ANALY METAB OLIC PANEL chloride 102 mmol/ L 98-110 normal Not Available [address], [address], 09/15/2022 19:55:32 09/13/20 22 09/15/2022 COMPR EHENS ANALY METAB OLIC PANEL carbon dioxide 28 mmol/ L 20-32 normal Not Available [address], [address], 09/15/2022 19:55:32 09/13/20 22 09/15/2022 COMPR EHENS ANALY METAB OLIC PANEL calcium 9.8 mg/dL 8.6-10 .4 normal Not Available [address], [address], 09/15/2022 19:55:32 09/13/20 22 09/15/2022 COMPR EHENS ANALY METAB OLIC PANEL protein, total 7.1 g/dL 6.1-8. 1 normal Not Available [address], [address], 09/15/2022 19:55:32 09/13/20 22 09/15/2022 COMPR EHENS ANALY METAB OLIC PANEL albumin 4.4 g/dL 3.6-5. 1 normal Not Available [address], [address], 09/15/2022 19:55:32 09/13/20 22 09/15/2022 COMPR EHENS ANALY METAB OLIC PANEL globulin 2.7 g/dL_ (calc ) 1.9-3. 7 normal Not Available [address], [address], 09/15/2022 19:55:32 09/13/20 22 09/15/2022 COMPR EHENS ANALY METAB OLIC PANEL albumin/glob ulin ratio 1.6 (calc ) 1.0-2. 5 normal Not Available [address], [address], 09/15/2022 19:55:32 09/13/20 22 09/15/2022 COMPR EHENS ANALY METAB OLIC PANEL bilirubin, total 0.6 mg/dL 0.2-1. 2 normal Not Available [address], [address], 09/15/2022 19:55:32 09/13/20 22 09/15/2022 COMPR EHENS ANALY METAB OLIC PANEL alkaline phosphatase 86 U/L 37-153 normal Not Available [facility] [employer] [address], [address], 09/15/2022 19:55:32 09/13/20 22 09/15/2022 COMPR EHENS ANALY METAB OLIC PANEL AST 55 U/L 10-35 high Not Available [address], [address], 09/15/2022 19:55:32 09/13/20 22 09/15/2022 COMPR EHENS ANALY METAB OLIC PANEL ALT 62 U/L 6-29 high Not Available [address], [address], 09/15/2022 19:55:32 09/13/20 22 09/15/2022 LIPID PANEL , STAND KELLE cholesterol, total 163 mg/dL <200 normal Not Available [address], [address], 09/15/2022 19:55:32 09/13/20 22 09/15/2022 LIPID PANEL , STAND KELLE HDL cholesterol 44 mg/dL > or = 50 low Not Available [address], [address], 09/15/2022 19:55:32 09/13/20 22 09/15/2022 LIPID PANEL , STAND KELLE triglyceride s 138 mg/dL <150 normal Not Available [facility] [address] [place] [address], [address], 09/15/2022 19:55:32 09/13/20 22 09/15/2022 LIPID PANEL [...] 9): 2061- 2068 (http ://ed ucati on.Qu estDi [facility]. com/f aq/FA Q164) Not Available [facility] [address] [place] [address], [address], 09/15/2022 19:55:32 09/13/20 22 09/15/2022 LIPID PANEL , STAND KELLE chol/HDLC ratio 3.7 (calc ) <5.0 normal Not Available [facility] [address] [place] [address], [address], 09/15/2022 19:55:32 09/13/20 22 09/15/2022 LIPID PANEL , STAND KELLE non HDL cholesterol 119 mg/dL _(carol c) <130 normal For patie nts with diabe natalia plus 1 major ASCVD risk facto r, treat ing to a non-H DL-C goal of <100 mg/dL (LDL- C of <70 mg/dL ) is consi dered a thera peuti c optio n. Not Available [facility] [address] [place], [address], 09/15/2022 19:55:32 09/13/20 22 09/15/2022 TESTO STERO NE, FREE, BIOAV AILAB LE AND TOTAL , MS albumin 4.4 g/dL 3.6-5. 1 Not Available [address], [address], 09/15/2022 19:55:31 09/13/20 22 09/15/2022 TESTO STERO NE, FREE, BIOAV AILAB LE AND TOTAL , MS sex hormone binding globulin 25.0 nmol/ L 14-73 Not Available [address], [address], 09/15/2022 19:55:31 09/13/20 22 09/15/2022 TESTO STERO NE, FREE, BIOAV AILAB LE AND TOTAL , MS testosterone , free 2.6 pg/mL 0.2-5. 0 Not Available [address], [address], 09/15/2022 19:55:31 09/13/20 22 09/15/2022 TESTO STERO NE, FREE, BIOAV AILAB LE AND TOTAL , MS testosterone ,bioavailabl e 5.2 NG/dL 0.5-8. 5 Not Available [address], [address], 09/15/2022 19:55:31 09/13/20 22 09/15/2022 TESTO STERO NE, FREE, BIOAV AILAB LE AND TOTAL , MS testosterone , total, MS 18 NG/dL 2-45 For addit ional camila farmer e refer to https ://ed ucati on.qu aki [facility]. com/f aq/FA Q165 (This link is being provi ded for infor massiel nal/e ducat ional purpo ses only. ) (Note ) This test was devel oped and its dylan tical perfo rmanc e laura cteri stics have been deter mined by [employer]. It has not been clear ed or appro arnoldo by the FDA. This assay has been valid ated pursu ant to the [place] regul ation s and is used for clini carol purpo ses. F med fusjacoby n [address] [facility] [address] [place] [address] [phone] Ervin morales MD Not Available [email or web address] [address] [address] [place], [address], 09/15/2022 19:55:31 09/13/20 22 09/15/2022 IRON, TIBC AND ROCCO TIN PANEL iron, total 67 mcg/d L 45-160 normal Not Available [facility] [address] [address] [place], [address], 09/15/2022 19:55:31 09/13/20 22 09/15/2022 IRON, TIBC AND ROCCO TIN PANEL iron binding capacity 357 mcg/d L_(ca lc) 250-45 0 normal Not Available [facility] [address] [address] [place], [address], 09/15/2022 19:55:31 09/13/20 22 09/15/2022 IRON, TIBC AND ROCCO TIN PANEL % saturation 19 %_(ca lc) 16-45 normal Not Available [facility] [address] [address] [place], [address], 09/15/2022 19:55:31 09/13/20 22 09/15/2022 IRON, TIBC AND ROCCO TIN PANEL ferritin 55 NG/mL 16-232 normal Not Available [email or web address] [address] [address] [place], [address], 09/15/2022 19:55:31 04/13/20 23 04/16/2023 LIPID PANEL , STAND KELLE cholesterol, total 150 mg/dL <200 normal Not Available [email or web address] [address] [address] [place], [address], 04/16/2023 08:50:21 04/13/20 23 04/16/2023 LIPID PANEL , STAND KELLE HDL cholesterol 44 mg/dL > or = 50 low Not Available [facility] [id number] [place] [address], [address], 04/16/2023 08:50:21 04/13/20 23 04/16/2023 LIPID PANEL , STAND KELLE triglyceride s 128 mg/dL <150 normal Not Available [address], [address], 04/16/2023 08:50:21 04/13/20 23 04/16/2023 LIPID PANEL , STAND KELLE LDL-choleste rol 84 mg/dL _(carol c) normal Refer ence range : <100 Deb able range <100 mg/dL for prima ry preve ntion ; <70 mg/dL for patie nts with CHD or diabe tic patie nts with > or = 2 CHD risk facto rs. LDL-C is now calcu lated using the Setfanie n-Hop kins calcu latjacoby n, which is a valid ated novel pat corey acdre than the Fried lyssa equat ion in the estim ation of LDL-C . Stefanie adair SS et al. EUGENIO. 2013; 310(1 9): 2061- 2068 (http ://ed ucati on.Christine Verdugo [employer]. com/f aq/FA Q164) Not Available [address], [address], 04/16/2023 08:50:21 04/13/20 23 04/16/2023 LIPID PANEL , STAND KELLE chol/HDLC ratio 3.4 (calc ) <5.0 normal Not Available [address], [address], 04/16/2023 08:50:21 04/13/20 23 04/16/2023 LIPID PANEL , STAND KELLE non HDL cholesterol 106 mg/dL _(carol c) <130 normal For patie nts with diabe natalia plus 1 major ASCVD risk facto r, treat ing to a non-H DL-C goal of <100 mg/dL (LDL- C of <70 mg/dL ) is thangi toshia biggs optio n. Not Available [address] [address] [place], [address], 04/16/2023 08:50:21 04/13/20 23 04/16/2023 COMPR EHENS ANALY METAB OLIC PANEL glucose 91 mg/dL 65-99 normal Fasti ng refer ence inter mckenna Not Available [facility] [address] [address] [place], [address], 04/16/2023 08:50:21 04/13/2004/16/2023 COMPR EHENS ANALY METAB OLIC PANEL urea nitrogen (BUN) 18 mg/dL 7-25 normal Not Available [address] [address] [place], [address], 04/16/2023 08:50:21 04/13/20 23 04/16/2023 COMPR EHENS ANALY METAB OLIC PANEL creatinine 0.66 mg/dL 0.50-1 .05 normal Not Available [address] [address] [place], [address], 04/16/2023 08:50:21 04/13/2004/16/2023 COMPR EHENS ANALY METAB OLIC PANEL eGFR 100 mL/mi n/1.7 3m2 > or = 60 normal The eGFR is based on the CKD-E PI 2020 aminahat ion. To calcu late the new eGFR from a previ ous Creat inaniyah or Tatyana ardon C clayton t, go to https ://lauren osman/jean magallon/ kdoqi /gfr% 5Fcal culat or Not Available [address] [address] [place], [address], 04/16/2023 08:50:21 04/13/20 23 04/16/2023 COMPR EHENS ANALY METAB OLIC PANEL BUN/creatini ne ratio NOT APPLIC ABLE (calc ) 6-22 Not Available [address], [address], 04/16/2023 08:50:21 04/13/20 23 04/16/2023 COMPR EHENS ANALY METAB OLIC PANEL sodium 142 mmol/ L 135-14 6 normal Not Available [address], [address], 04/16/2023 08:50:21 04/13/20 23 04/16/2023 COMPR EHENS ANALY METAB OLIC PANEL potassium 4.4 mmol/ L 3.5-5. 3 normal Not Available [address], [address], 04/16/2023 08:50:21 04/13/20 23 04/16/2023 COMPR EHENS ANALY METAB OLIC PANEL chloride 104 mmol/ L 98-110 normal Not Available [address], [address], 04/16/2023 08:50:21 04/13/20 23 04/16/2023 COMPR EHENS ANALY METAB OLIC PANEL carbon dioxide 30 mmol/ L 20-32 normal Not Available [address], [address], 04/16/2023 08:50:21 04/13/20 23 04/16/2023 COMPR EHENS ANALY METAB OLIC PANEL calcium 9.9 mg/dL 8.6-10 .4 normal Not Available [address], [address], 04/16/2023 08:50:21 04/13/20 23 04/16/2023 COMPR EHENS ANALY METAB OLIC PANEL protein, total 7.2 g/dL 6.1-8. 1 normal Not Available [address], [address], 04/16/2023 08:50:21 04/13/20 23 04/16/2023 COMPR EHENS ANALY METAB OLIC PANEL albumin 4.3 g/dL 3.6-5. 1 normal Not Available [address], [address], 04/16/2023 08:50:21 04/13/20 23 04/16/2023 COMPR EHENS ANALY METAB OLIC PANEL globulin 2.9 g/dL_ (calc ) 1.9-3. 7 normal Not Available [address], [address], 04/16/2023 08:50:21 04/13/20 23 04/16/2023 COMPR EHENS ANALY METAB OLIC PANEL albumin/glob ulin ratio 1.5 (calc ) 1.0-2. 5 normal Not Available [address], [address], 04/16/2023 08:50:21 04/13/20 23 04/16/2023 COMPR EHENS ANALY METAB OLIC PANEL bilirubin, total 0.5 mg/dL 0.2-1. 2 normal Not Available [address], [address], 04/16/2023 08:50:21 04/13/20 23 04/16/2023 COMPR EHENS ANALY METAB OLIC PANEL alkaline phosphatase 90 U/L 37-153 normal Not Available [facility] [employer] [address] [address] [place], [address], 04/16/2023 08:50:21 04/13/20 23 04/16/2023 COMPR EHENS ANALY METAB OLIC PANEL AST 46 U/L 10-35 high Not Available [address], [address], 04/16/2023 08:50:21 04/13/20 23 04/16/2023 COMPR EHENS ANALY METAB OLIC PANEL ALT 39 U/L 6-29 high Not Available [facility] [address], [address], 04/16/2023 08:50:21 04/13/20 23 04/16/2023 THYRO ID PEROX IDASE ANTIB ODIES thyroid peroxidase antibodies 93 IU/mL <9 high Not Available [facility] [address], [address], 04/16/2023 08:50:22 04/13/20 23 04/16/2023 INSUL IN insulin 39.0 uIU/m L high [...] Diagn ostic s in 2021. Not Available [facility] [address], [address], 04/16/2023 08:50:23 04/13/2004/16/2023 T3, FREE T3, free 3.3 pg/mL 2.3-4. 2 normal Not Available [facility] [address], [address], 04/16/2023 08:50:23 04/13/2004/16/2023 TSH+F REE T4 TSH 3.12 mIU/L 0.40-4 .50 normal Not Available [email or web address] [address], [address], 04/16/2023 08:50:24 04/13/20 23 04/16/2023 TSH+F REE T4 T4, free 1.1 NG/dL 0.8-1. 8 normal Not Available [email or web address] [address], [address], 04/16/2023 08:50:24 04/13/20 23 04/16/2023 HEMOG LOBIN [...] Care in Diabe natalia(A DA). Not Available [facility] [address] [address] [place], [address], 04/16/2023 08:50:25 10/12/20 23 10/13/2023 CBC (INCL UDES DIFF/ PLT) white blood cell count 6.1 thous and/u L 3.8-10 .8 normal Not Available [facility] [address] [address] [place], [address], 10/13/2023 07:17:31 10/12/2010/13/2023 CBC (INCL UDES DIFF/ PLT) red blood cell count 5.18 catherine on/uL 3.80-5 .10 high Not Available [facility] [address] [place], [address], 10/13/2023 07:17:31 10/12/20 23 10/13/2023 CBC (INCL UDES DIFF/ PLT) hemoglobin 15.0 g/dL 11.7-1 5.5 normal Not Available [address], [address], 10/13/2023 07:17:31 10/12/20 23 10/13/2023 CBC (INCL UDES DIFF/ PLT) hematocrit 45.6 % 35.0-4 5.0 high Not Available [address], [address], 10/13/2023 07:17:31 10/12/20 23 10/13/2023 CBC (INCL UDES DIFF/ PLT) MCV 88.0 fL 80.0-1 00.0 normal Not Available [address], [address], 10/13/2023 07:17:31 10/12/20 23 10/13/2023 CBC (INCL UDES DIFF/ PLT) MCH 29.0 pg 27.0-3 3.0 normal Not Available [address], [address], 10/13/2023 07:17:31 10/12/20 23 10/13/2023 CBC (INCL UDES DIFF/ PLT) MCHC 32.9 g/dL 32.0-3 6.0 normal Not Available [address], [address], 10/13/2023 07:17:31 10/12/20 23 10/13/2023 CBC (INCL UDES DIFF/ PLT) RDW 13.7 % 11.0-1 5.0 normal Not Available [address], [address], 10/13/2023 07:17:31 10/12/20 23 10/13/2023 CBC (INCL UDES DIFF/ PLT) platelet count 212 thous and/u L 140-40 0 normal Not Available [address], [address], 10/13/2023 07:17:31 10/12/20 23 10/13/2023 CBC (INCL UDES DIFF/ PLT) MPV 11.0 fL 7.5-12 .5 normal Not Available [address], [address], 10/13/2023 07:17:31 10/12/20 23 10/13/2023 CBC (INCL UDES DIFF/ PLT) absolute neutrophils 3343 cells /uL 1500-7 800 normal Not Available [address], [address], 10/13/2023 07:17:31 10/12/20 23 10/13/2023 CBC (INCL UDES DIFF/ PLT) absolute lymphocytes 1915 cells /uL 850-39 00 normal Not Available [address], [address], 10/13/2023 07:17:31 10/12/20 23 10/13/2023 CBC (INCL UDES DIFF/ PLT) absolute monocytes 433 cells /uL 200-95 0 normal Not Available [address], [address], 10/13/2023 07:17:31 10/12/20 23 10/13/2023 CBC (INCL UDES DIFF/ PLT) absolute eosinophils 329 cells /uL 15-500 normal Not Available [address], [address], 10/13/2023 07:17:31 10/12/20 23 10/13/2023 CBC (INCL UDES DIFF/ PLT) absolute basophils 79 cells /uL 0-200 normal Not Available [address], [address], 10/13/2023 07:17:31 10/12/20 23 10/13/2023 CBC (INCL UDES DIFF/ PLT) neutrophils 54.8 % normal Not Available [address], [address], 10/13/2023 07:17:31 10/12/20 23 10/13/2023 CBC (INCL UDES DIFF/ PLT) lymphocytes 31.4 % normal Not Available [facility] [address], [address], 10/13/2023 07:17:31 10/12/20 23 10/13/2023 CBC (INCL UDES DIFF/ PLT) monocytes 7.1 % normal Not Available [facility] [address], [address], 10/13/2023 07:17:31 10/12/20 23 10/13/2023 CBC (INCL UDES DIFF/ PLT) eosinophils 5.4 % normal Not Available [address], [address], 10/13/2023 07:17:31 10/12/20 23 10/13/2023 CBC (INCL UDES DIFF/ PLT) basophils 1.3 % normal Not Available [address], [address], 10/13/2023 07:17:31 08/18/20 24 08/19/2024 TSH+F REE T4 TSH 1.17 mIU/L 0.40-4 .50 normal Not Available [address], [address], 08/19/2024 07:36:24 08/18/20 24 08/19/2024 TSH+F REE T4 T4, free 1.1 NG/dL 0.8-1. 8 normal Not Available [address], [address], 08/19/2024 07:36:24 08/18/20 24 08/19/2024 LIPID PANEL WITH RATIO S cholesterol, total 124 mg/dL <200 normal Not Available [address], [place], [address], 08/19/2024 07:36:26 08/18/20 24 08/19/2024 LIPID PANEL WITH RATIO S HDL cholesterol 40 mg/dL > or = 50 low Not Available [address] [address] [place], [address], 08/19/2024 07:36:26 08/18/20 24 08/19/2024 LIPID PANEL WITH RATIO S triglyceride s 127 mg/dL <150 normal Not Available [facility] [address] [address] [place], [address], 08/19/2024 07:36:26 08/18/2008/19/2024 LIPID PANEL WITH RATIO S LDL-choleste rol 63 mg/dL _(carol c) normal Refer ence range : <100 Deb able range <100 mg/dL for prima ry preve ntion ; <70 mg/dL for patie nts with CHD or diabe tic patie nts with > or = 2 CHD risk facto rs. LDL-C is now calcu lated using the Stefanie n-Hop [facility] kdu denise n, which is a valid ated novel pat aparicio than the Fried lyssa equat ion in the estim ation of LDL-C . Stefanie adair SS et al. EUGENIO. 2013; 310(1 9): 2061- 2068 (http ://ed ucati on.Christine landrum [employer]. com/f aq/FA Q164) Not Available [address] [address] [place], [address], 08/19/2024 07:36:26 08/18/20 24 08/19/2024 LIPID PANEL WITH RATIO S chol/HDLC ratio 3.1 (calc ) <5.0 normal Not Available [address] [address] [place], [address], 08/19/2024 07:36:26 08/18/20 24 08/19/2024 LIPID PANEL WITH RATIO S LDL/HDL ratio 1.6 (calc ) Below avera ge Risk: <2.34 [place] ge Risk: 2.35- 4.12 Moder ate Risk: 4.13- 5.56 High Risk: >5.57 Not Available [address] [address] [place], [address], 08/19/2024 07:36:26 08/18/20 24 08/19/2024 LIPID PANEL WITH RATIO S non HDL cholesterol 84 mg/dL _(carol c) <130 normal For patie nts with diabe natalia plus 1 major ASCVD risk facto r, treat ing to a non-H DL-C goal of <100 mg/dL (LDL- C of <70 mg/dL ) is fabiola martinez c optio n. Not Available [address] [address] [place], [address], 08/19/2024 07:36:26 08/18/20 24 08/19/2024 COMPR EHENS ANALY METAB OLIC PANEL glucose 81 mg/dL 65-99 normal Fasti ng refer ence inter mckenna Not Available [address] [address] [place], [address], 08/19/2024 07:36:27 08/18/20 24 08/19/2024 COMPR EHENS ANALY METAB OLIC PANEL urea nitrogen (BUN) 13 mg/dL 7-25 normal Not Available [address] [address] [place], [address], 08/19/2024 07:36:27 08/18/20 24 08/19/2024 COMPR EHENS ANALY METAB OLIC PANEL creatinine 0.56 mg/dL 0.50-1 .05 normal Not Available [address] [address] [place], [address], 08/19/2024 07:36:27 08/18/20 24 08/19/2024 COMPR EHENS ANALY METAB OLIC PANEL eGFR 104 mL/mi n/1.7 3m2 > or = 60 normal Not Available [address] [address] [place], [address], 08/19/2024 07:36:27 08/18/2008/19/2024 COMPR EHENS ANALY METAB OLIC PANEL BUN/creatini ne ratio SEE NOTE: (calc ) 6-22 Not Repor villa: BUN and Creat inine are withi n refer ence range . Not Available [address], [address], 08/19/2024 07:36:27 08/18/20 24 08/19/2024 COMPR EHENS ANALY METAB OLIC PANEL sodium 143 mmol/ L 135-14 6 normal Not Available [address] [address] [place], [address], 08/19/2024 07:36:27 08/18/2008/19/2024 COMPR EHENS ANALY METAB OLIC PANEL potassium 3.8 mmol/ L 3.5-5. 3 normal Not Available [address] [address] [address] , [place], [address], 08/19/2024 07:36:27 08/18/20 24 08/19/2024 COMPR EHENS ANALY METAB OLIC PANEL chloride 103 mmol/ L 98-110 normal Not Available [address] [address] [place], [address], 08/19/2024 07:36:27 08/18/20 24 08/19/2024 COMPR EHENS ANLAY METAB OLIC PANEL carbon dioxide 33 mmol/ L 20-32 high Not Available [address] [address] [place], [address], 08/19/2024 07:36:27 08/18/20 24 08/19/2024 COMPR EHENS ANALY METAB OLIC PANEL calcium 9.7 mg/dL 8.6-10 .4 normal Not Available [address] [address] [place], [address], 08/19/2024 07:36:27 08/18/20 24 08/19/2024 COMPR EHENS ANALY METAB OLIC PANEL protein, total 6.8 g/dL 6.1-8. 1 normal Not Available [address], [address], 08/19/2024 07:36:27 08/18/2008/19/2024 COMPR EHENS ANALY METAB OLIC PANEL albumin 4.3 g/dL 3.6-5. 1 normal Not Available [address], [address], 08/19/2024 07:36:27 08/18/2008/19/2024 COMPR EHENS ANALY METAB OLIC PANEL globulin 2.5 g/dL_ (calc ) 1.9-3. 7 normal Not Available [address], [address], 08/19/2024 07:36:27 08/18/20 24 08/19/2024 COMPR EHENS ANALY METAB OLIC PANEL albumin/glob ulin ratio 1.7 (calc ) 1.0-2. 5 normal Not Available [address], [address], 08/19/2024 07:36:27 08/18/2008/19/2024 COMPR EHENS ANALY METAB OLIC PANEL bilirubin, total 0.5 mg/dL 0.2-1. 2 normal Not Available [address], [address], 08/19/2024 07:36:27 08/18/20 24 08/19/2024 COMPR EHENS ANALY METAB OLIC PANEL alkaline phosphatase 101 U/L 37-153 normal Not Available [address] [address] [place], [address], 08/19/2024 07:36:27 08/18/2008/19/2024 COMPR EHENS ANALY METAB OLIC PANEL AST 20 U/L 10-35 normal Not Available [facility] [id number] [address], [place], [address], 08/19/2024 07:36:27 08/18/20 24 08/19/2024 COMPR EHENS ANALY METAB OLIC PANEL ALT 21 U/L 6-29 normal Not Available [facility] [id number], [place], [address], 08/19/2024 07:36:27 08/18/20 24 08/19/2024 HEMOG LOBIN A1C hemoglobin A1C 5.4 %_of_ total _HGB <5.7 normal For the purpo se of scree frank for the prese nce of diabe natalia: [...] Diabe natalia(A DA). Not Available [facility] [id number], [place], [address], 08/19/2024 07:36:27 07/21/20 22 07/20/2022 XR, chest , 2 view No observ ation record ed. [id number].[id number] [place] [address], [place], [address], 01/03/2023 05:06:32 08/09/20 22 08/04/2022 US, echoc ardio gram, trans thora cic, compl ete, w/ color flow No observ ation record ed. MIGRATION. [facility] (Cardiology & Emg) [address], [place], [address], 01/03/2023 05:06:32 09/14/20 22 08/21/2022 sandie r monit or No observ ation record ed. MIGRATION. [facility] [address], [place], [address], 01/03/2023 05:06:32 10/27/20 22 09/13/2022 sandie r monit or No observ ation record ed. [email or web address] Not Available 01/03/2023 05:06:32 11/12/19 24 11/06/2023 MAMMO , scree frank, digit al, bilat eral No observ ation record ed. [email or web address] [facility] [address], [place], [address], 11/13/2023 12:16:10 Result Notes None recorded. Problems Name Problem SNOMED Code Status Onset Date Resolution Date Notes Provider Name and Address Organization Details Recorded Time Mixed anxiety and depressive disorder 260696925 Active 2018 Not Available [facility] 3 04:52:47 Hypothyroi dism due to Stephanie' s thyroiditi s 125900881 Active 2018 Not Available [facility] 3 04:52:47 Obstructiv e sleep apnea syndrome 50774641 Active 2018 Not Available [facility] 3 04:52:49 Hypertensi ve disorder 59827241 Active 2019 Not Available [facility] 3 04:52:48 Vitamin D deficiency 92133009 Active 2019 Not Available [facility] 3 04:52:47 Depressive disorder 95517296 Active 2019 Not Available [facility] 3 04:52:48 Migraine 53927009 Active 2019 Not Available [facility] 3 04:52:48 Hypothyroi dism 13732618 Active 2019 Not Available [facility] 3 04:52:48 Anxiety 81980197 Active 2019 Not Available [facility] 3 04:52:48 Parkinson' s disease 61768818 Active 2019 Not Available [facility] 3 04:52:48 Hyperlipid emia 39437203 Active 2019 Not Available [facility] 3 04:52:49 Essential hypertensi on 44048387 Active 2019 Not Available [facility] 3 04:52:49 Pre-surger y evaluation Active 2021 Not Available [facility] 3 04:52:46 Decreased hearing 530302414 Active 2021 Not Available [facility] 3 04:52:46 Disorder of left tympanic membrane 6543560143073 105 Active 2021 Not Available [facility] 3 04:52:46 Benign essential hypertensi on 6132661 Active 2021 Not Available [facility] 3 04:52:47 Acute fungal otitis externa 671173180 Active 2021 Not Available [facility] 3 04:52:47 Otitis externa 4618295 Active 2021 Not Available [facility] 3 04:52:47 COVID-19 550322832 Active 2021 Not Available [facility] 3 04:52:49 Abnormal urinalysis 312020198 Active 2021 Not Available [facility] 3 04:52:47 Upper respirator y infection 03963482 Active 2021 Not Available [facility] 3 04:52:49 Acute bronchitis 04173974 Active 2021 Not Available [facility] 3 04:52:46 Postviral cough 632779727 Active 2021 Not Available [facility] 3 04:52:48 Cough 28383881 Active 2021 Not Available [facility] 3 04:52:49 Heart murmur 37706754 Active 2021 Not Available [facility] 3 04:52:50 Fluttering heart 310729969 Active 2021 Not Available [facility] 3 04:52:47 Diastolic dysfunctio n 8684798 Active 2021 Not Available [facility] 3 04:52:48 Left ventricula r diastolic dysfunctio n 254927055 Active 2021 Not Available [facility] 3 04:52:48 Ventricula r premature complex 857599881 Active 2021 Not Available [facility] 3 04:52:47 Premature atrial contractio n 537509387 Active 2021 Not Available [facility] 3 04:52:47 Gastroesop hageal reflux disease without esophagiti s 070631862 Active 2022 KARLOS Sevilla [address], [address], [place], [address] , [employer] 3 12:36:00 Acute upper respirator y infection 39351336 Active 2022 KARLOS Sevilla [address], [address], [place], [address] , [employer] 3 13:14:15 Impaired fasting glycemia 022712151 Active 2022 KARLOS Sevilla [address], [address], [place], [address] , [employer] 3 11:26:20 Mixed hyperlipid emia 536298929 Active 2022 KARLOS Sevilla [address], [address], [place], [address] , [employer] 3 11:26:31 Problem Notes None recorded. Procedures Surgical History Date Name Laterality Status Provider Name and Address Organization Details Recorded Time 01/04/20 Knee Replacement completed Not Available [facility] 01/03/2023 04:43:13 09/27/20 20 Most Recent Bone Density completed Not Available [facility] 01/03/2023 04:43:09 09/21/20 20 Date of Last Colonoscopy completed Not Available [facility] 01/03/2023 04:43:09 09/21/20 20 colonoscopy completed Not Available [facility] 01/03/2023 04:43:13 Knee Surgery completed Not Available [facility] 01/03/2023 04:43:13 Tonsillectomy completed Not Available [facility] 01/03/2023 04:43:13 Cholecystectomy completed Not Available [facility] 01/03/2023 04:43:13 Sinus Surgery completed Not Available [facility] 01/03/2023 04:43:13 Imaging Results None [...] Not available Not available Not available 01/03/2023 35104 8003 SNOMED Not Available [facility] 3 05:06:02 8638 Product containin g penicilli n (product) medicatio n Not available Not available Not available 01/03/2023 54889 8001 SNOMED Not Available [facility] 3 05:06:02 8639 codeine medicatio n Not available Not available Not available 01/03/2023 2670 RxNorm Not Available [facility] 3 05:06:02 Medications Name Sig [...] No t Available Vitals Date Recorded Systolic And Diastolic Provider Name and Address Organization Details Last Updated DateTime 04/25/2023 110/80 mm[Hg] KARLOS Sevilla [address] [facility], [facility] [address], [place], [address], [facility] [employer] [facility] 04/25/2023 12:54:07 Date Recorded Body height Body temperature Body mass index (BMI) Body weight Respiratory rate Oxygen saturation Heart rate Systolic And Diastolic Provider Name and Address Organization Details Last Updated DateTime 3 170.18 cm 96.5 [degF] 41 kg/m2 670025. 2 g 16 /min 97 % 63 /min 122/80 mm[Hg] JONATAN Cash [facility] [employer] [facility] 3 12:30:19 Date Recorded Body height Oxygen saturation Heart rate Respiratory rate Body temperature Systolic And Diastolic Provider Name and Address Organization Details Last Updated DateTime 2 170.18 cm 96 % 69 /min 16 /min 97.4 [degF] 132/88 mm[Hg] Not Available [facility] 3 04:49:54 Date Recorded Body height Oxygen saturation Heart rate Body temperature Systolic And Diastolic Provider Name and Address Organization Details Last Updated DateTime 2 170.18 cm 98 % 68 /min 96.9 [degF] 126/86 mm[Hg] Not Available [facility] 3 04:49:54 Date Recorded Body mass index (BMI) Body height Oxygen saturation Heart rate Body temperature Body weight Systolic And Diastolic Provider Name and Address Organization Details Last Updated DateTime 2 41.3 kg/m2 170.18 cm 96 % 69 /min 97.4 [degF] 536763. 39 g 140/90 mm[Hg] Not Available [facility] 3 04:49:55 Date Recorded Body height Body mass index (BMI) Body weight Respiratory rate Heart rate Systolic And Diastolic Provider Name and Address Organization Details Last Updated DateTime 3 170.18 cm 40.7 kg/m2 086742. 02 g 16 /min 69 /min 120/72 mm[Hg] JONATAN Cash [employer] [facility] 3 11:00:29 Social History Question Answer Notes LastModified by Organizat ion Details LastModified Time Tobacco Smoking Status Never Smoker Not Available [facility] 01/03/2023 04:41:59 Do You Have An Advance Directive? No [id number] Information not available 01/03/2023 What Is Your Level Of Caffeine Consumption? Occasional [id number] Information not available 01/03/2023 How Much Tobacco Do You Chew? None [id number].[id number] Information not available 01/03/2023 In The 14 Days Before Symptom Onset, Have You Had Close Contact With A Laboratory-confirm ed COVID-19 While That Case Was Ill? No [id number] Information not available 01/03/2023 In The 14 Days Before Symptom Onset, Have You Had Close Contact With A Person Who Is Under Investigation For COVID-19 While That Person Was Ill? No [id number] 7536 Information not available 01/03/2023 What Type Of Diet Are You Following? REGULAR [id number].[id number] 5090 Information not available 01/03/2023 Which Illicit Or Recreational Drugs Have You Used? None [id number].[id number] 7723 Information not available 01/03/2023 Have There Been Any Changes To Your Family Or Social Situation? No MIGRATION.[id number] 5960 Information not available 01/03/2023 Do You Use Insect Repellent Routinely? No [id number].[id number] Information not available 01/03/2023 Do You Have A Medical Power Of Neighborhood Aide? No MIGRATION.[id number] 7922 Information not available 01/03/2023 What Is Your Relationship Status? MIGRATION.[id number] 0792 Information not available 01/03/2023 Do You Use Your Seat Belt Or Car Seat Routinely? Yes MIGRATION.[id number] Information not available 01/03/2023 Do You Have Smoke And Carbon Monoxide Detectors In Your Home? Yes MIGRATION.348353 9612 Information not available 01/03/2023 How Much Tobacco Do You Smoke? No MIGRATION.[id number] 9464 Information not available 01/03/2023 Do You Use Sunscreen Routinely? Yes MIGRATION.[id number] 3109 Information not available 01/03/2023 Have You Recently Traveled Abroad? No MIGRATION.[id number] Information not available 01/03/2023 Do You Have Any Dietary Restrictions? No MIGRATION.381245 0052 Information not available 01/03/2023 Sex: Female Functional Status Question Answer Note LastModified by Organizat ion Details LastModified Time Do you use any illicit or recreational drugs? No MIGRATION.026663 2671 Information not available 01/03/2023 Do you or have you ever used any other forms of tobacco or nicotine? No MIGRATION.508267 4466 Information not available 01/03/2023 What is your level of alcohol consumption? None MIGRATION.[id number] 5448 Information not available 01/03/2023 Do you or have you ever used smokeless tobacco? Never used smokeless tobacco MIGRATION.085203 9987 Information not available 01/03/2023 Do you or have you ever used e-cigarettes or vape? Never used electronic cigarettes MIGRATION.[id number] 8762 Information not available 01/03/2023 What is your exercise level? Moderate MIGRATION.[id number] 8218 Information not available 01/03/2023 Mental Status None recorded. Family History Relationship Description Onset Age of this Age Resolved Age Notes LastModified by Organization Details LastModified Time Father Hypothyroidi sm [email or web address] Not available 2022 10:53:03 Father Chronic obstructive pulmonary disease [email or web address] Not available 2022 10:53:03 Father Hypertensive disorder [id number] Not available 01/03/2023 04:43:21 Father Heart disease [id number].044 [id number] Not available 01/03/2023 04:43:21 Mother Hypothyroidi sm [email or web address] Not available 2022 10:53:03 Mother Hypertensive disorder [id number].059 [id number] Not available 01/03/2023 04:43:21 Paternal Grandfather Diabetes mellitus [id number] Not available 01/03/2023 04:43:21 Medical History Condition Response HIGH CHOLESTEROL / HYPERLIPIDEMIA Y HAVE YOU BEEN HOSPITALIZED OR SEEN IN [facility] IN THE PAST YEAR [...] dose 3 completed Gena Reilly RN null, [facility] 08/21/2023 09:20:46 influenza, unspecified formulation 3 completed ASHLEY Deleon, [employer] [facility] 08/21/2023 12:48:17 Influenza, split virus, quadrivalent, preservative 9 completed Not Available [facility] 01/03/2023 05:05:52 Influenza, split virus, quadrivalent, preservative 0 completed Not Available [facility] 01/03/2023 05:05:52 Past Encounters Encounter ID Performer Location Encounter Start Date Encounter Closed Date Diagnosis/Indication Diagnosis SNOMED-CT Code Diagnosis ICD10 Code Diagnosis IMO Codes Diagnosis Note [id number] Shahla Smith MD [facility] [address] [place] [address] 03/04/2021 00:00:00 03/04/2021 11:36:08 [id number] KARLOS Sevilla [facility] [address] [place] [address] 03/22/2021 00:00:00 04/01/2021 19:08:50 [id number] Shahla Smith MD [facility] [address] [place] [address] 08/23/2021 00:00:00 08/23/2021 12:38:33 [id number] KARLOS Sevilla [facility] [address] [place] [address] 09/27/2021 00:00:00 10/02/2021 14:09:09 [id number] KARLOS Sevilla [facility] [address] [place] [address] 12/30/2021 00:00:00 12/30/2021 16:20:09 [id number] Shahla Smith MD [facility] [address] [place] [address] 03/13/2022 00:00:00 03/13/2022 11:26:11 [id number] Adrien Salazar MD [facility] [address] [place] [address] 03/28/2022 00:00:00 04/03/2022 16:18:48 [id number] KARLOS Sevilla [facility] [address] [place] [address] 07/18/2022 00:00:00 08/03/2022 20:10:40 [id number] KARLOS Sevilla [facility] [address] [place] [address] 08/15/2022 00:00:00 09/03/2022 14:51:28 [id number] KARLOS Sevilla [facility] [address] [place] [address] 09/26/2022 00:00:00 10/03/2022 21:16:08 [id number] Shahla Smith MD [facility] [address] [place] [address] 10/19/2022 00:00:00 10/19/2022 13:39:20 [id number] KARLOS Sevilla [facility] Internal [facility] [address] [place] [address] 04/25/2023 12:21:43 04/25/2023 12:57:10 Adult health examination 799215697 Z00.01 annual wellness completed Hyperlipidemia 55127831 E78.5 stable on crestor 20mg daily. Mixed anxi ety and depressive disorder 089099885 F41.8 stable on sertraline 200mg daily. Obstructiv e sleep apnea syndrome 50363237 G47.33 stable on cpap Hypothyroi dism due to Stephanie's thyroiditis 459460643 E06.3 on Tirosint,. follows with Endo Benign ess ential hypertension 2020753 I10 stable on medication s Parkinson's disease 4904 9000 G20 stable on recent adjustment s by Neurology on her carbidopa levodopa Long-term drug therapy 007154146 Z79.899 CBC needed on next lab draw Gastroesop hageal reflux disease without esophagitis 347900246 K21.9 stable on PPI therapy Diastolic dysfunction 35 42452 I51.9 on Diltiazem CD 240mg daily. [id number] KARLOS Sevilla [facility] Internal [facility] [address] [place] [address] 10/25/2023 10:52:31 10/25/2023 11:29:36 Hyperlipidemia 10679036 E78.5 stable on crestor 20mg daily. Mixed anxi ety and depressive disorder 981164786 F41.8 stable on sertraline 200mg daily. 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 follows with Endo in past. this office will take over management since her Endocrine left. due for TFTs Benign ess ential hypertension 6735226 I10 stable on medication s Parkinson's disease 4904 9000 G20.A1 stable on recent adjustment s by Neurology on her carbidopa levodopa Diastolic dysfunction 35 10181 I51.9 on Diltiazem CD 240mg daily. Gastroesop hageal reflux disease without esophagitis 491354297 K21.9 stable on PPI therapy Long-term drug therapy 077430181 Z79.899 cmp lab due Impaired f asting glycemia 424979426 R73.01 routine a1c and insulin Mixed hyperlipidemia 267 359147 E78.2 fasting lipids due and refill omega 3 fish oil Health Concerns Section Related Observation LastModified by Organization Detai ls LastModified Time None Recorded Concern Status LastModified by Organization Details LastModified Time None Recorded Advance Directives Directive N: Payers Insurance Date Sequence Insurance Name Policy Number Policy Haynes Covered Member ID Haynes Member ID Guarantor Name 10/31/2023 1 [facility] ([facility] [id number] Jeff Eagle Dimitri [id number] Jaimie Dimitri Notes Date Note Type Note Provider Name and Address Organization Details Recorded Time 3 text/html Anxiety/DepressionReported by PatientHPIFor severity, patient reportsdenies suicidal ideations,able to maintain relationships, anddoes not interfere with activities of daily living. For duration, patient reportssymptoms lasting over 2 weeks. For onset/timing, patient reportsstill present. For context, patient reportsno major life stressors. For associated symptoms, patient reportsdenies homicidal ideations,no significant weight gain,no significant weight loss,no visual/auditory hallucinations,no delusions, andno shortness of breath. For quality, (doesnt matter time of day). HyperlipidemiaReported by PatientHPIFor duration, patient reportschronic. For compliance, patient reportsnoncompliant with dietbut reportscompliantandexercise s. For risk factors, patient reportshypertension. For control, patient reportsusually well controlled. For complications, patient reportsno coronary artery disease,no peripheral artery disease, andno cardiovascular disease. Obstructive Sleep Apnea F/UReported by PatientHPIFor location, patient reportsdryness of mouthbut reportsno enlarged tonsils,no nasal passage blockage,no throat pain,no feeling of tightness in throat, andno chest congestion. For quality, patient reportsno loud snoring,no gasping for air,no witnessed apnea,no hyponasal speech, andno frequent breathing through the mouth. For onset/timing, patient reportschronic. For duration, patient reportscontinuous. For severity, patient reportsdoes not limit daily activities,no frequent sore throats resulting in excess missed days from school / work per year,no difficulty getting going in the morning, andno awakening in the middle of the night with sore throat. For context, patient reportsno lack of adequate sleep,no shift work,not currently taking medication to help sleep,no recent weight gain,no recent upper respiratory infection,no recent sick contacts,not worse with environmental exposure,not worse with seasonal allergen exposure,no hypertension, andnormal sleep hours. For alleviating factors, patient reportsrelief with cpap. For aggravating factors, patient reportsnot worse during an upper respiratory infection (a cold)andnot worse when allergies are active. For associated symptoms, patient reportsno morning headache,no awakening at night short of breath,no sweating heavily at night,no excessive sleepiness during the day,no suddenly falling asleep during the day,no napping,no impaired work performace, andno nasal congestion. HypertensionReported by PatientHPIFor duration, patient reportshas noted for years. For onset/timing, patient reportsbetter. For alleviating factors, patient reportsmedication. For associated symptoms, patient reportsno shortness of breath,no fatigue,no palpitations,no decline in exercise capacity, andno snoring. HypothyroidismReported by PatientHPIFor context/risk, patient reportshistory of hypothyroidismandfemale genderbut reportsnormal thyroid levels,no history of head or neck radiation during childhood,no history of thyroid disease,no history of hyperthyroidism, andno excess iron exposure. For quality, patient reportsnot changing. For duration, patient reportsconstant. For onset/timing, patient reportsstill present. For modifying factors, patient reportsmedication. For exercise, patient reportsgets exercise. For associated symptoms, patient reportsno cold intolerance,no heat intolerance,no weight loss,no weight gain,no double vision,no dry eyes,no hoarseness,no difficulty swallowing,no neck masses,no deepening of the voice,no fast heart rate,no increased blood pressure,no palpitations,no chest pain,no chest tightess or pressure,no constipation,no diarrhea,no vomiting,no decreased appetite,no loose stools,no irregular menstrual periods,no excessive sweating,no joint pain,no numbness,no tingling of the hands or feet,no dry skin,no tremor,no nervousness,no anxiety,no depression,no fatigue,no sleep difficulties,no skin changes, andno hair changes. Wellness KARLOS Sevilla [address] [facility], [place], [address], [place] [facility] [employer] [facility] 05/04/2023 19:04:34 3 text/html HypertensionReported by PatientHPIFor duration, patient reportshas noted for years. For onset/timing, patient reportsbetter. For alleviating factors, patient reportsmedication. For associated symptoms, patient reportsno shortness of breath,no fatigue,no palpitations,no decline in exercise capacity, andno snoring. Anxiety/DepressionReported by PatientHPIFor severity, patient reportsdenies suicidal ideations,able to maintain relationships, anddoes not interfere with activities of daily living. For duration, patient reportssymptoms lasting over 2 weeks. For onset/timing, patient reportsstill present. For context, patient reportsno major life stressors. For associated symptoms, patient reportsdenies homicidal ideations,no significant weight gain,no significant weight loss,no visual/auditory hallucinations,no delusions, andno shortness of breath. For quality, (doesnt matter time of day). HyperlipidemiaReported by PatientHPIFor duration, patient reportschronic. For compliance, patient reportsnoncompliant with dietbut reportscompliantandexercise s. For risk factors, patient reportshypertension. For control, patient reportsusually well controlled. For complications, patient reportsno coronary artery disease,no peripheral artery disease, andno cardiovascular disease. Obstructive Sleep Apnea F/UReported by PatientHPIFor location, patient reportsdryness of mouthbut reportsno enlarged tonsils,no nasal passage blockage,no throat pain,no feeling of tightness in throat, andno chest congestion. For quality, patient reportsno loud snoring,no gasping for air,no witnessed apnea,no hyponasal speech, andno frequent breathing through the mouth. For onset/timing, patient reportschronic. For duration, patient reportscontinuous. For severity, patient reportsdoes not limit daily activities,no frequent sore throats resulting in excess missed days from school / work per year,no difficulty getting going in the morning, andno awakening in the middle of the night with sore throat. For context, patient reportsno lack of adequate sleep,no shift work,not currently taking medication to help sleep,no recent weight gain,no recent upper respiratory infection,no recent sick contacts,not worse with environmental exposure,not worse with seasonal allergen exposure,no hypertension, andnormal sleep hours. For alleviating factors, patient reportsrelief with cpap. For aggravating factors, patient reportsnot worse during an upper respiratory infection (a cold)andnot worse when allergies are active. For associated symptoms, patient reportsno morning headache,no awakening at night short of breath,no sweating heavily at night,no excessive sleepiness during the day,no suddenly falling asleep during the day,no napping,no impaired work performace, andno nasal congestion. HypothyroidismReported by PatientHPIFor context/risk, patient reportshistory of hypothyroidismandfemale genderbut reportsnormal thyroid levels,no history of head or neck radiation during childhood,no history of thyroid disease,no history of hyperthyroidism, andno excess iron exposure. For quality, patient reportsnot changing. For duration, patient reportsconstant. For onset/timing, patient reportsstill present. For modifying factors, patient reportsmedication. For exercise, patient reportsgets exercise. For associated symptoms, patient reportsno cold intolerance,no heat intolerance,no weight loss,no weight gain,no double vision,no dry eyes,no hoarseness,no difficulty swallowing,no neck masses,no deepening of the voice,no fast heart rate,no increased blood pressure,no palpitations,no chest pain,no chest tightess or pressure,no constipation,no diarrhea,no vomiting,no decreased appetite,no loose stools,no irregular menstrual periods,no excessive sweating,no joint pain,no numbness,no tingling of the hands or feet,no dry skin,no tremor,no nervousness,no anxiety,no depression,no fatigue,no sleep difficulties,no skin changes, andno hair changes. KARLOS Sevilla [address] [facility] [facility], [facility] [address], [place], [address], [facility] [employer] [facility] 10/30/2023 17:45:09 OBGyn Episode No OBEpisode recorded.
--- OUTSIDE RECORDS SUMMARY | 2025-10-06 03:29 | XMS_ITS | Data Portability ---
Author Organization [place] - [facility] - [facility] [place] Address [address] [place] [address] Assessment Encounter Date Assessment Date Assessment LastModified by Organization Details LastModified Time 10/24/2024 10/24/2024 Pt here with below diagnosis - pt here for evaluation for their condition, evaluation of their medication use, and discussion for alternative treatments. The documentation details a telehealth encounter with the patient on this date of service. Audio and video communications were used during this encounter to provide a urzh-vn-[id number] interactive encounter. Components of this encounter are [...] used during this encounter to provide a imrs-fj-hzua interactive encounter. Components of this encounter are [...] By Organization Details Last Modified Time 10/24/2024 [id number] I have discussed the risks and benefits [...] Pt also agrees that me, and the [facility] Team are my treating physicians and [...] questions. carlie Not available 10/24/2024 13:59:45 10/31/2024 [id number] I have discussed the risks and benefits [...] Pt also agrees that me, and the [facility] Team are my treating physicians and [...] ICD10 Code Diagnosis IMO Codes Diagnosis Note [id number] Shahla Carbone MD [facility] [address] [place] [address] 10/24/2024 13:50:14 10/24/2024 14:39:21 Parkinson's disease [id number] G20.A1 [id number] [facility] [address] [place] [address] 10/31/2024 13:09:30 10/31/2024 13:22:21 Parkinson's disease [id number] G20.A1 Health Concerns Section Related Observation LastModified by Organization Detai ls LastModified Time None Recorded Concern Status LastModified by Organization Details LastModified Time None Recorded Advance Directives Directive None Recorded Payers Insurance Date Sequence Insurance Name Policy Number Policy Haynes Covered Member ID Haynes Member ID Guarantor Name 10/28/2024 1 [facility] ([facility] [id number] Jeff Mosley [id number] Jaimie Mosley Notes Date Note Type Note Provider Name and Address Organization Details Recorded Time 10/24/2024 text/html ROS as noted in the HPI The patient would like to discuss medications, the disease, and how to handle it. Pt would also like to discuss alternative treatments to this condition. Pt was referred here for further evaluation and treatment if necessary. Patient has a diagnosis of qualifying condition -PARKINSONS DISEASE Shahla Carbone MD [address], [place], [address], [place] [facility] 10/24/2024 14:01:20 10/31/2024 text/html ROS as noted in the HPI The patient would like to discuss medications, the disease, and how to handle it. Pt would also like to discuss alternative treatments to this condition. Pt was referred here for further evaluation and treatment if necessary. Patient has a diagnosis of qualifying condition -PARKINSON'S DISEASE Shahla Carbone MD [address], [place], [address], [facility] [place] 10/31/2024 13:10:14 OBGyn Episode No OBEpisode recorded.
--- OUTSIDE RECORDS SUMMARY | 2025-10-06 03:29 | XMS_ITS | Encounter Summary ---
Author Organization [facility] Address [address] [place] [address] Care Team Providers Care Life Enrichment Specialist Name Role Phone Debra Veliz Primary Care Pr ovider Reason for Visit * Reason Onset Date Comments MEDICATION REFILL 12/27/2023 Encounter Details Date Type Department Care Team (Late st Contact Info) Description 12/27/2023 Refill [facility] - Neurology [address] [place] [address], [place] [address] Jessica Benitez APRN-CABINETMAKER MAINTENANCE [address] [place] [phone] MEDICATION REFILL Social History Tobacco Use Types Packs/Day Years Used Date Smoking Tobacco: Never Smokeless Tobacco: Never Alcohol Use Standard Drinks/Week Comments No 0 (1 standard drink = 0.6 oz pur e alcohol) Comments No Sex and Gender Information Value Date Recorded Sex Assigned at Female 12/27/2023 4:35 PM ASTRONOMY INSTRUCTOR Legal Sex Female 6:13 AM ASTRONOMY INSTRUCTOR Gender Identity Female 12/27/2023 4:35 PM ASTRONOMY INSTRUCTOR Sexual Orientation Straight 12/27/2023 4: 35 PM ASTRONOMY INSTRUCTOR documented as of this encounter Miscellaneous Notes [...] 1 (one) tablet by mouth at bedtime ONOMY INSTRUCTOR documented in this encounter Plan of Treatment Upcoming Encounters Date Type Department Care Team (Late st Contact Info) Description 11/11/2025 2:30 PM ASTRONOMY INSTRUCTOR Office Visit [facility] - Neurology [address] [place] [address], [facility] [place] [address] Anjum Mendoza MD [address] [place] [address] [place] [phone] documented as of this encounter Visit Diagnoses Diagnosis Idiopathic Parkinson's disease (HCC)- Primary Paralysis agitans documented in this encounter Care Teams Life Enrichment Specialist Relationship Specialty Start Date End Date Debra Veliz PA [address] [place] [phone] PCP - General 04/28/20 documented as of this encounter
--- OUTSIDE RECORDS SUMMARY | 2025-10-06 03:29 | XMS_ITS | Encounter Summary ---
Author Organization [facility] Address [address] [facility] [place] [address] Care Team Providers Care Manager Private Name Role Phone Debra Veliz Primary Care Pr ovider Encounter Details Date Type Department Care Team (Late st Contact Info) Description 01/20/2025 Lab Requisition [facility] [address] [place] [phone] Mirian Whiting DO [address] [place] [address] [address] [place] [address] Social History Tobacco Use Types Packs/Day Years Used Date Smoking Tobacco: Never Smokeless Tobacco: Never Alcohol Use Standard Drinks/Week Comments No 0 (1 standard drink = 0.6 oz pur e alcohol) Comments No Sex and Gender Information Value Date Recorded Sex Assigned at Female 12/27/2023 4:35 PM THERAPY ASSISTANT Legal Sex Female 6:13 AM THERAPY ASSISTANT Gender Identity Female 12/27/2023 4:35 PM THERAPY ASSISTANT Sexual Orientation Straight 12/27/2023 4: 35 PM THERAPY ASSISTANT documented as of this encounter Plan of Treatment Upcoming Encounters Date Type Department Care Team (Late Contact Info) Description 11/11/2025 2:30 PM THERAPY ASSISTANT Office Visit [facility] - Neurology [address] [place] [phone] Anjum Mendoza MD [address] [place] [address] [place] [phone] documented as of this encounter Procedures Procedure Name Priority Date/Time Associated Diagnosis Comments DERMATOPATHOLOGY Routine 01/20/2025 10:5 5 AM CDT documented in this encounter Results * DERMATOPATHOLOGY (01/20/2025 10:55 AM CDT) Case Report Dermatopathology Report Case: [id number] Authorizing Provider: Mirian Whiting DO Collected: 01/20/2025 10:55 AM Ordering Location: [facility] - Received: 01/21/2025 06:36 AM [...] characteristic determined by the Dermatopathology Laboratory at [facility], directed by Dr. Quan Mann. These tests need not be, and therefore are not, approved by the [place] Food and Drug Administration. The tests are used for clinical purposes. Billing Codes Specimen Charges Stain Charges 25763 1 [id number] 93819 1 1 5 4:25 PM CDT DERMATOPATHOLOGY LABORATORY Embedded Images 5 4:25 PM CDT DERMATOPATHOLOGY LABORATORY Pathology/Cytolo gy TISSUE SPECIMEN FROM SKIN / Unknown 01/20/2025 10:55 AM CDT 01/21/2025 6:36 AM CDT us Mirian Whiting DO LAB - PATHOLOGY/CYTOLOGY ORDERABLES Final Result DERMATOPATHOLOGY LABORATORY [facility] - Department of Dermatology [facility] Medicine [address] [place] [address], [address] [phone] documented in this encounter Visit Diagnoses Not on filedocumented in this encounter Care Teams Manager Private Relationship Specialty Start Date End Date Debra Veliz PA [address] [place] [phone] PCP - General 04/28/20 documented as of this encounter
[2025-10-06 11:05] VITALS: BP 141/62; PULSE 61; RESP 20; TEMP 36.4; O2SAT 98; BMI 36.0
[2025-10-06] MEDS: LACTATED RINGERS 1,000 ML 150 ML IV CONT (11:22)
--- NOTE | 2025-10-06 12:08 | PM.HPGS ---
History of Present Illness History of Present Illness Consent: Risks, benefits, and alternatives have been discussed and questions answered. Patient agrees to proceed with procedure. Chief complaint: Hx of polyps Narrative: Jaimie Mosley is a 60 year old female with colon polyp in 2019 Review of Systems Review of Systems: All systems reviewed & are unremarkable except as noted in HPI and below PMFSH Past Medical History Medical History Anxiety Depression Hypertension Hypothyroidism Migraine JHONY (obstructive sleep apnea) CPAP Parkinson disease Surgical History Surgical History History of cholecystectomy History of knee surgery History of sinus surgery History of tonsillectomy Family History Family History Grandparent Family history of lung cancer Family history of lymphoma Diabetes mellitus Hypertension Mother Patient's mother is in good health Hypertension Thyroid disorder Father Acute myocardial infarction Hypertension Asthma Depression Heart disease Thyroid disorder Sibling Alcoholism Hypertension Thyroid disorder Other Alcoholism Depression Grandparent Hypertension Depression Thyroid disorder Other Family history of alcoholism Family history of cardiovascular disease Family history of chronic obstructive pulmonary disease Family history of osteoporosis Family history of rheumatoid arthritis Family history of sleep apnea Social History Social History Smoking status: Never smoker Second hand tobacco smoke exposure: No Alcohol intake: former Substance use: unknown Substance use type: unknown Living arrangements: with family Occupation/Education: retired Spiritual care concerns: No Meds Home Medications and Allergies Home Medications ?Medication ?Instructions ?Recorded ?Confirmed ?Type carbidopa 25 mg-levodopa 100 mg 25 - 100 tablet PO QAM 09/15/20 10/06/25 History tablet carbidopa ER 50 mg-levodopa 200 mg 50 - 200 tablet PO QPM 09/15/20 10/06/25 History tablet,extended release hydrochlorothiazide 25 mg tablet 25 mg PO DAILY 09/15/20 10/06/25 History rasagiline 1 mg tablet 1 mg PO DAILY 09/15/20 10/06/25 History rosuvastatin 20 mg tablet 20 mg PO DAILY 09/15/20 10/06/25 History sertraline 100 mg tablet 200 mg PO DAILY 09/15/20 10/06/25 History cholecalciferol (vitamin D3) 125 125 mcg PO DAILY 08/14/22 10/06/25 History mcg (5,000 unit) capsule fluticasone propionate 50 1 spray intranasal DAILY 08/14/22 10/06/25 History mcg/actuation nasal spray,suspension (Flonase Allergy Relief) omega-3 acid ethyl esters 1 gram 1 cap PO BID 08/14/22 10/06/25 History capsule diltiazem HCl 240 mg capsule,24 240 mg PO DAILY 03/19/24 10/06/25 History hr,extended release levothyroxine 137 mcg tablet 137 mcg PO DAILY 03/19/24 10/06/25 History (Unithroid) doxycycline hyclate 100 mg capsule 100 mg PO DAILY PRN skin 09/17/25 10/06/25 History linaclotide 145 mcg capsule 145 mcg PO DAILY 09/17/25 10/06/25 History (Linzess) ropinirole 0.5 mg tablet 1 mg PO HS 09/17/25 10/06/25 History sodium sul 1.479 gram-potas ch See Rx Instructions PO .COMPLEX 09/17/25 Rx 0.188 gram-magnes sul 0.225 gram #24 tabs tablet (Sutab) Allergies Allergy/AdvReac Type Severity Reaction Status Date / Time codeine Allergy Unknown Unknown Verified 10/06/25 11:11 Penicillins Allergy Unknown Unknown Verified 10/06/25 11:11 Sulfa (Sulfonamide Allergy Unknown Unknown Verified 10/06/25 11:11 Antibiotics) sulfanilamide Allergy Unknown Unknown Verified 10/06/25 11:11 Vital Signs Vital Signs - 24 hr 10/06/25 11:05 Temperature 97.5 F L Pulse Rate 61 Respiratory Rate 20 Blood Pressure 141/62 H Pulse Oximetry 98 Oxygen Delivery Room Air Exam Const: General: comfortable and no acute distress HENMT: Face/Nose/Sinus: Normal nares present Eyes: General: appearance normal, both eyes and all related structures Neck: Neck: no JVD Resp: Auscultation: clear to auscultation bilaterally Cardio: Rate: regular rate Rhythm: regular rhythm GI: Inspection: non-distended GI Palp: Yes Soft to palpation Skin: General skin exam: normal color Extrem: General: normal to inspection Psych: Mental Status: mental status grossly normal Assessment and Plan Assessment and plan (1) History of colon polyps: Code(s): Z86.010 - Personal history of colon polyps Status: Acute Assessment and Plan: colonoscopy
--- NOTE | 2025-10-06 12:14 | WPDANESEPPF ---
Anes - Initial Pre Proc Eval Procedure: Operation Date: 10/06/25 12:30 Proposed Procedures p Screening Colonoscopy - Yao Castelan MD Date/Time: 10/06/25 12:14 Surgeon: Yao Castelan MD Pre Op Diagnosis: Hx of polyps Patient Data Age: 60 Gender: F Height: 1.7 m Weight: 104.3 kg Last Vital Signs Temp 97.5 F L 10/06/25 11:05 Pulse 61 10/06/25 11:05 Resp 20 10/06/25 11:05 BP 141/62 H 10/06/25 11:05 Pulse Ox 98 10/06/25 11:05 O2 Del Method Room Air 10/06/25 11:05 Allergies Allergy/AdvReac Type Severity Reaction Status Date / Time codeine Allergy Unknown Unknown Verified 10/06/25 11:11 Penicillins Allergy Unknown Unknown Verified 10/06/25 11:11 Sulfa (Sulfonamide Allergy Unknown Unknown Verified 10/06/25 11:11 Antibiotics) sulfanilamide Allergy Unknown Unknown Verified 10/06/25 11:11 Home Medications ?Medication ?Instructions ?Recorded ?Confirmed ?Type carbidopa 25 mg-levodopa 100 mg 25 - 100 tablet PO QAM 09/15/20 10/06/25 History tablet carbidopa ER 50 mg-levodopa 200 mg 50 - 200 tablet PO QPM 09/15/20 10/06/25 History tablet,extended release hydrochlorothiazide 25 mg tablet 25 mg PO DAILY 09/15/20 10/06/25 History rasagiline 1 mg tablet 1 mg PO DAILY 09/15/20 10/06/25 History rosuvastatin 20 mg tablet 20 mg PO DAILY 09/15/20 10/06/25 History sertraline 100 mg tablet 200 mg PO DAILY 09/15/20 10/06/25 History cholecalciferol (vitamin D3) 125 125 mcg PO DAILY 08/14/22 10/06/25 History mcg (5,000 unit) capsule fluticasone propionate 50 1 spray intranasal DAILY 08/14/22 10/06/25 History mcg/actuation nasal spray,suspension (Flonase Allergy Relief) omega-3 acid ethyl esters 1 gram 1 cap PO BID 08/14/22 10/06/25 History capsule diltiazem HCl 240 mg capsule,24 240 mg PO DAILY 03/19/24 10/06/25 History hr,extended release levothyroxine 137 mcg tablet 137 mcg PO DAILY 03/19/24 10/06/25 History (Unithroid) doxycycline hyclate 100 mg capsule 100 mg PO DAILY PRN skin 09/17/25 10/06/25 History linaclotide 145 mcg capsule 145 mcg PO DAILY 09/17/25 10/06/25 History (Linzess) ropinirole 0.5 mg tablet 1 mg PO HS 09/17/25 10/06/25 History sodium sul 1.479 gram-potas ch See Rx Instructions PO .COMPLEX 09/17/25 Rx 0.188 gram-magnes sul 0.225 gram #24 tabs tablet (Sutab) Patient hx anesthesia problems: none Family hx anesthesia problems: none Results Review: All pre-operative results and documents have been reviewed as part of the pre-operative evaluation. [facility] Past Medical History Medical History TMJ (temporomandibular joint disorder) Dysphagia GERD (gastroesophageal reflux disease) Depression Anxiety Hypothyroidism JHONY (obstructive sleep apnea) CPAP Hypertension Parkinson disease Migraine Surgical History Surgical History History of tonsillectomy History of sinus surgery History of cholecystectomy History of knee surgery Family History Family History Grandparent Family history of lung cancer Family history of lymphoma Diabetes mellitus Hypertension Mother Patient's mother is in good health Hypertension Thyroid disorder Father Acute myocardial infarction Hypertension Asthma Depression Heart disease Thyroid disorder Sibling Alcoholism Hypertension Thyroid disorder Other Alcoholism Depression Grandparent Hypertension Depression Thyroid disorder Other Family history of alcoholism Family history of cardiovascular disease Family history of chronic obstructive pulmonary disease Family history of osteoporosis Family history of rheumatoid arthritis Family history of sleep apnea Social History Social History Smoking status: Never smoker Second hand tobacco smoke exposure: No Alcohol intake: former Substance use: unknown Substance use type: unknown Living arrangements: with family Occupation/Education: retired Spiritual care concerns: No Anes - Eval Final PreProcedure Day of Procedure 10/06/25 12:14 Patient weight: obese Heart: regular rate and rhythm Lungs: clear to auscultation Airway: Mallampati scale class II Neurological: alert and oriented Last oral intake: >/= 8 hours ASA classification: III Emergent: no Anesthetic plan: proceed Anesthesia type and monitoring: general GIVS and standard monitoring Results Review: All pre-operative results and documents have been reviewed as part of the pre-operative evaluation. Informed Consent: The patient's anesthetic plan and its attendant risks and benefits were discussed with the patient/family/POA. Questions were solicited and answers provided to the satisfaction of the patient/family/POA.
--- NOTE | 2025-10-06 12:43 | S_PTH ---
PATIENT: Jaimie Mosley LOC: [facility]#:[id number] AGE/SX: 60/F ROOM: RE10/06/[address]: Yao Castelan MD : 1965 BED: DIS: 10/06/2025 SPEC #: [id number] RECD: 10/06/25 12:47 STATUS: JEREMÍAS AGGARWAL #: [id number] MARIO: 10/06/25 12:[address]: Yao Castelan DEPT: [facility] Surgical RECD BY: Yaakov Reddy ENTERED: 10/06/25 12:48 SP TYPE: Surgical OTHR DR: Debra Villanueva, PA-C Tissues: A - Colon Polypectomy B - Colon Polypectomy Procedures: Hematoxylin and Eosin Stain Gross and Microscopic Level 4
[2025-10-06 12:46] VITALS: BP 110/52; PULSE 54; RESP 14; O2SAT 100
[2025-10-06 12:56] VITALS: BP 119/70; PULSE 51; RESP 20; O2SAT 98
[2025-10-06 13:06] VITALS: BP 122/60; PULSE 52; RESP 16; O2SAT 100
== END 2025-10-06 13:28 | disposition home or self-care (01) ==
PROVIDERS: PCP Physician Assistant; Referring Provider Nurse Practitioner; Visit Provider Internal Medicine Gastroenterology
PROC: 0DJD8ZZ Inspection of Lower Intestinal Tract, Via Natural or Artificial Opening Endoscopic (ICD-10-PCS; CPT 45378; principal; 2025-10-06 12:30)
DX: Z12.11 Encounter for screening for malignant neoplasm of colon (principal); D12.2 Benign neoplasm of ascending colon; D12.3 Benign neoplasm of transverse colon; K64.8 Other hemorrhoids; E66.9 Obesity, unspecified; Z68.36 Body mass index [BMI] 36.0-36.9, adult
CPT/HCPCS: 45385; 88305; J2003; J2704; J7120